=== PATIENT | male | born 1955 | race Caucasian/White ===

== ENCOUNTER 2017-09-26 11:36 | Observation (INO) | payer OTHER, SELFPAY ==
[2017-09-26] VITALS (10 sets, daily range): BP systolic 134–158; BP diastolic 80–86; PULSE 58–71; RESP 16–18; TEMP 36.6–37.1; O2SAT 96–98; BMI 26.7; BMI 27.8
--- NOTE | 2017-09-26 12:00 | EKG12_ITS ---
Test Reason : CP Blood Pressure : / mmHG Vent. Rate : 068 BPM Atrial Rate : 068 BPM P-R Int : 198 ms QRS Dur : 088 ms QT Int : 372 ms P-R-T Axes : 023 -38 036 degrees QTc Int : 395 ms Normal sinus rhythm Left axis deviation Inferior infarct , age undetermined Anterior infarct , age undetermined Abnormal ECG Confirmed by ALEJANDRA MARCELINO, [place] ([id number]), editor managing newspaper VINCENT KAPLAN ([id number]) on 09/29/2017 2:08:15 PM Referred By: Confirmed By:[place] ROBERTS MD
--- NOTE | 2017-09-26 12:00 | RAD_ITS ---
STUDY: X-RAY CHEST REASON FOR EXAM: Male, 61 years old. Chest discomfort for several days TECHNIQUE: Single view of the chest was obtained COMPARISON: None. FINDINGS: Mild prominence of the cardiac silhouette. Mild perihilar congestive changes. Small calcified granuloma in the right lower lobe suspected. Osseous structures demonstrate no acute abnormalities. No lung consolidation or pneumothorax. RAD/Chest 1 View (Portable) IMPRESSION: No evidence for focal airspace disease. Electronically Signed: Bradley Andrews, at 12:52 EST Tel , Service support ,
--- NOTE | 2017-09-26 12:02 | ED.VISSUMM ---
- ER Visit Summary Date of Service: 09/26/17 Chief Complaint: [Chest pain] History of Present Illness: The patient is a 61 M [who presents the emergency department with chest pain. It started at 1030 this morning. It was a pressure aching in the center of his chest. It radiated to his left neck. He was out working on the deck when it started. It similar to when he had a heart attack 2 years ago and had a stent placed at that time. He had some mild nausea. No shortness of breath. He took his blood pressure and was 162/102. He has a history of high blood pressure and history of smoking however he quit 2 years ago. He rates the pain as a 2 out of 10 currently. He did take 5 baby aspirin at home and 2 nitro prior to coming into the emergency department] Physical Examination: [] 158/86 WN WD NAD PERRL EOMI MMM NECK supple and nontender, no masses RRR no murmur rub or gallop, no peripheral edema, symmetric radial pulses CTAB no respiratory distress ABDOMEN is soft and nontender, normal bowel sounds, no distension, no rebound or guarding SKIN is warm and dry no rashes Alert and Oriented x3, CN II-XII in tact, no motor or sensory deficits, gait normal No lymphadenopathy Test Results: [] Emergency Department Course and Treatment: [Up in the emergency department was unremarkable. Given the patient's history and description of the pain I do think he requires admission.] Treatment Plan: [] Disposition: [Admit] Impression: [chest Pain] This note was generated with [employer] dictation software. It may contain incorrect words, spelling, and punctuation that were not noted in review of the chart prior to signing ED Disposition - Plan for ED Patient: Disposition: Acute Care Hospital [facility] Chief Complaint: Chest Pain
--- NOTE | 2017-09-26 12:07 | ED.DCSUM_ITS ---
- ER Visit Summary Date of Service: 09/26/17 Chief Complaint: [Chest pain] History of Present Illness: The patient is a 61 M [who presents the emergency department with chest pain. It started at 1030 this morning. It was a pressure aching in the center of his chest. It radiated to his left neck. He was out working on the deck when it started. It similar to when he had a heart attack 2 years ago and had a stent placed at that time. He had some mild nausea. No shortness of breath. He took his blood pressure and was 162/102. He has a history of high blood pressure and history of smoking however he quit 2 years ago. He rates the pain as a 2 out of 10 currently. He did take 5 baby aspirin at home and 2 nitro prior to coming into the emergency department] Physical Examination: [] 158/86 WN WD NAD PERRL EOMI MMM NECK supple and nontender, no masses RRR no murmur rub or gallop, no peripheral edema, symmetric radial pulses CTAB no respiratory distress ABDOMEN is soft and nontender, normal bowel sounds, no distension, no rebound or guarding SKIN is warm and dry no rashes Alert and Oriented x3, CN II-XII in tact, no motor or sensory deficits, gait normal No lymphadenopathy Test Results: [] Emergency Department Course and Treatment: [Up in the emergency department was unremarkable. Given the patient's history and description of the pain I do think he requires admission.] Treatment Plan: [] Disposition: [Admit] Impression: [chest Pain] This note was generated with [employer] dictation software. It may contain incorrect words, spelling, and punctuation that were not noted in review of the chart prior to signing ED Disposition - Plan for ED Patient: Disposition: Acute Care Hospital [facility] Chief Complaint: Chest Pain
[2017-09-26 12:15] LABS: Absolute Lymphocyte Count 1.58 X10^3/ul (0.83-4.51); Absolute Neutrophil Count 5.1 X10^3/uL (2.0-7.7); Basophil# 0.02 X10^3/uL; Basophil% 0.3 % (0-1); Eosinophil# 0.16 X10^3/uL; Eosinophils% 2.2 % (0-5); Lymphocyte # 1.58 X10^3/ul (4.0); Lymphocyte % 21.4 % (19-41); Mean Corp Hgb Conc 34.1 g/gl (32-36); Mean Corpuscular Hgb 29.7 pg (27.0-32.0); Monocyte# 0.51 X10^3/uL; Monocyte% 6.9 % (0-10); Neutrophil # 5.13 X10^3/uL (2.7-7.7); Neutrophil % 69.2 % (47-70); Platelet Count 165 K/mm3 (150-450); RBC Distribution Width CV 12.8 % (11.6-14.6); RBC Distribution Width SD 41.3 fl (35.1-43.9); Red Blood Count 4.71 M/mm3 (4.6-6.2); White Blood Count 7.4 K/mm3 (4.4-11.0)
[2017-09-26 12:17] LABS: POSITIVE COUNT NO; POSITIVE DIFFERENTIAL NO; POSITIVE MORPHOLOGY NO
[2017-09-26 12:21] LABS: International Normalized Ratio 1.1; Prothrombin Time (Protime)PT. 13.8 SECONDS (11.7-14.9)
[2017-09-26] MEDS: Nitroglycerin Oint 1 INCH PACKET TRANSDERM. (12:22)
[2017-09-26 12:29] LABS: Anion Gap 6 (5-15); BUN 20 mg/dL (7-18); BUN/Creat Ratio 16.4 RATIO (10-20); Calcium,Total 8.8 mg/dL (8.5-10.1); Chloride 108 mmol/L (98-107); Creatinine, Serum 1.22 mg/dL (0.70-1.30); EST Glomerular Filtration Rate 64 mL/min (>60); Est Glom Filt Rate - Afr Amer 77 mL/min (>60); Estimated Creatinine Clearance 68.02 ml/min; Glucose 108 mg/dL (74-106); Potassium 4.2 mmol/L (3.5-5.1); Sodium Level 142 mmol/L (136-145)
--- NOTE | 2017-09-26 14:00 | PCM.HP.STD ---
Problem List (1) Atypical chest pain Status: Acute (2) hypertension Status: Acute (3) GERD (gastroesophageal reflux disease) Status: Chronic (4) CAD (coronary artery disease) Status: Chronic Comment: status post stent History of Present Illness Date of Admission: 09/26/17 Chief Complaint: Left-sided chest pain today The patient is a 61 year old M history of coronary artery disease status post stent most probably LAD in [facility] in December 2015 with repeat echo in December 2016 as a preop for lumbar spine surgery, had L3-L4 lumbar vertebral fusion surgery came to ER with sudden onset of left-sided atypical chest pain, lasted for about an hour and 15-20 minutes associated with mild shortness of breath. Patient was just doing mild yardwork on his deck but no severe exertion. It got relieved after he took 5 baby aspirin and 2 nitro and morphine IV in the ER. History of smoking, about 45 pack years of smoking which he quit at the time of first CO in December 2015. The patient is chest pain-free. EKG done in the ER shows normal sinus rhythm at 68 bpm with LAD. No significant EKG changes since previous EKG of January 25, 2016. First troponin is negative. [] Past Medical History Past Medical History (Chronic Problems): Chronic Problems GERD (gastroesophageal reflux disease) (Chronic) CAD (coronary artery disease) (Chronic) status post stent Allergies No Known Allergies Allergy (Verified 12/25/15 22:49) Home Medications: Ambulatory Orders Medication Instructions Recorded Aspirin [Adult Low Dose Aspirin EC] 81 mg PO DAILY 01/24/16 Atorvastatin Calcium [Lipitor] 80 mg PO QHS 01/24/16 Carvedilol [Coreg (Beta Sonja)] 3.125 mg PO BID 01/24/16 Lisinopril [Zestril] 5 mg PO QHS 01/24/16 Nitroglycerin [Nitrostat] 0.4 mg SUBLINGUAL Q5M PRN 01/24/16 Pantoprazole Sodium [Protonix] 40 mg PO DAILY #30 tablet 01/25/16 Co Q-10 QHS 09/26/17 Cyanocobalamin [Vitamin B12] 500 mcg PO DAILY@0800 09/26/17 Krill Oil 500 mg PO DAILY 09/26/17 Surgical History: appendectomy, tonsillectomy, - Smoking Status: Former smoker - *Family History Maternal History Items: Hypertension Paternal History Items: Heart Disease, - - father with cabg, stent pacemaker, brother with heart disease. Review of Systems Constitutional: Denies: Chills, Fever, Weight Change HEENT: Denies: Head Aches, Sinus Congestion, Sinus Drainage Cardiovascular: Reports: Chest Pain. Denies: Palpitations Respiratory: Denies: Cough, Shortness of breath at rest, Sputum production Gastrointestinal: Denies: Abdominal Pain, Nausea, Vomiting Genitourinary: Denies: Dysuria Musculoskeletal: Denies: Joint Pain, Joint Tenderness Skin: Denies: Rash, Wounds Neurological: Reports: - - L3-L4 lumbar spinal fusion surgical scar. Denies: Focal weakness, Numbness, Tingling Psychiatric: Denies: Anxiety, Depression, Homicidal Ideations, Suicidal Ideations Hematologic/ Lymphatic: Denies: Easy Bruising, Easy Bleeding VTE Information - Inpt Only VTE Present on Admission: No VTE Mechan Device Prophylaxis: SCD's VTE Pharm Prophylaxis ordered?: Yes Patient Problems: Active and Suspected Problems Atypical chest pain (Acute) hypertension (Acute) - Physical Exam General: Alert, Oriented x3, Cooperative HEENT: Atraumatic, PERRLA, EOMI, Normocephalic Neck: Supple, No JVD, Negative Carotid Bruits Lungs: Clear to auscultation, Normal air movement, No rhonchi, No wheeze Cardiovascular: Regular rate, Regular Rhythm, Normal S1, Normal S2, No murmurs Abdomen: Bowel Sounds Present, Soft, Non Tender Extremities: No edema, Capillary Refill Less than 3 Seconds Skin: No rashes, No breakdown Musculoskeletal: No Tenderness to Palpation of Joints or Extremities, - - Had lumbar spinal surgery about 5 6 cm of long surgical scar and had screws and emanuel for L3-L4 lumbar spinal fusion surgery Neurological: Cranial nerves II-XII grossly intact Psych/Mental Status: Normal Affect, Appropriate Vital Signs Temp Pulse Resp BP Pulse Ox 98.3 F 65 16 136/80 H 98 09/26/17 11:37 09/26/17 13:49 09/26/17 13:49 09/26/17 13:49 09/26/17 13:49 Oxygen Delivery Method Room Air Weight: 197 lb Body Mass Index (BMI) 26.7 Laboratory Tests Past 24 Hrs 09/26/17 09/26/17 09/26/17 11:44 11:44 11:44 WBC 7.4 RBC 4.71 Hgb 14.0 Hct 41.0 MCV 87.0 MCH 29.7 MCHC 34.1 RDW 12.8 RDW Differential 41.3 Plt Count 165 MPV 11.0 Immature Gran % (Auto) 0.000 Neut % (Auto) 69.2 Lymph % (Auto) 21.4 Taney % (Auto) 6.9 Eos % (Auto) 2.2 Baso % (Auto) 0.3 Absolute Neuts (auto) 5.1 Absolute Lymphs (auto) 1.58 Total Counted Not Reportable PT 13.8 INR 1.1 Sodium 142 Potassium 4.2 Chloride 108 H Carbon Dioxide 28.0 Anion Gap 6 BUN 20 H Creatinine 1.22 Estim Creat Clear Calc 68.02 Est GFR (MDRD) Af Amer 77 Est GFR (MDRD) Non-Af 64 BUN/Creatinine Ratio 16.4 Glucose 108 H Calcium 8.8 Troponin I < 0.02 Assessment/Plan Active and Suspected Problems Atypical chest pain (Acute) hypertension (Acute) The patient is a 61 year old M history of coronary artery disease status post stent most probably LAD in [facility] in December 2015 with repeat echo in December 2016 as a preop for lumbar spine surgery, had L3-L4 lumbar vertebral fusion surgery came to ER with sudden onset of left-sided atypical chest pain, lasted for about an hour and 15-20 minutes associated with mild shortness of breath. Patient was just doing mild yardwork on his deck but no severe exertion. It got relieved after he took 5 baby aspirin and 2 nitro and morphine IV in the ER. History of smoking, about 45 pack years of smoking which he quit at the time of first CO in December 2015. The patient is chest pain-free. EKG done in the ER shows normal sinus rhythm at 68 bpm with LAD. No significant EKG changes since previous EKG of January 25, 2016. First troponin is negative. 1. Atypical chest pain possible unstable angina: Patient is being admitted on the PCU as an observation. On ACS protocol with serial cardiac enzymes and if negative exercise nuclear stress test tomorrow morning. Patient is on aspirin, lisinopril, Coreg and atorvastatin at home. 2. Coronary artery disease status post stent, possible LAD PCI in [facility]: 3. Hypertension: Blood pressure was high and patient came in ER 158/66. Lisinopril increased to 10 mg daily. Other comorbidities include GERD on Protonix, history of lumbar spinal surgery but at present no back pain: Stable. Home medication reconciliation done. DVT prophylaxis: On Lovenox 40 units subcu daily and bilateral SCDs. Code Visit OBSV E&M: 57468 Initial observation care L3
[2017-09-26] MEDS: 0.9% Normal Saline 1,000 ML 50 ML IV (15:36)
[2017-09-26] MEDS: Enoxaparin 40 MG/0.4 ML Syringe SC (15:36)
[2017-09-26] MEDS: Lisinopril 10 MG Tablet PO (15:36)
[2017-09-26] MEDS: Acetaminophen 325 MG Tablet 650 MG PO (18:15)
[2017-09-26] MEDS: Carvedilol 3.125 MG TABLET PO (21:46)
[2017-09-26] MEDS: Atorvastatin Calcium 80 MG Tablet PO (21:46)
[2017-09-27 02:59] LABS: Hematocrit 40.9 % (40-54); Hemoglobin 14.1 g/dl (13.0-16.5); Mean Corp Hgb Conc 34.5 g/gl (32-36); Mean Corpuscular Hgb 30.1 pg (27.0-32.0); Mean Corpuscular Volume 87.4 fL (80-94); Mean Platelet Vol. 11.4 fl (6.2-12.0); Platelet Count 155 K/mm3 (150-450); RBC Distribution Width SD 41.5 fl (35.1-43.9); Red Blood Count 4.68 M/mm3 (4.6-6.2); White Blood Count 6.2 K/mm3 (4.4-11.0)
[2017-09-27 03:12] LABS: Scan Indicated on CBC? Y/N NO
[2017-09-27 03:20] VITALS: BP 138/84; PULSE 61; RESP 16; TEMP 36.8; O2SAT 94
[2017-09-27 03:20] LABS: International Normalized Ratio 1.1; Partial Thromboplast Time 29.1 Seconds (24.1-36.2)
[2017-09-27 03:43] LABS: Anion Gap 8 (5-15); BUN 17 mg/dL (7-18); BUN/Creat Ratio 17.2 RATIO (10-20); Calcium,Total 8.8 mg/dL (8.5-10.1); Chloride 108 mmol/L (98-107); Cholesterol 137 mg/dL (200); Creatinine, Serum 0.99 mg/dL (0.70-1.30); EST Glomerular Filtration Rate 81 mL/min (>60); Est Glom Filt Rate - Afr Amer 98 mL/min (>60); Estimated Creatinine Clearance 83.83 ml/min; Glucose 101 mg/dL (74-106); High Density Lipoprotein 39 mg/dL; Potassium 3.8 mmol/L (3.5-5.1); Sodium Level 142 mmol/L (136-145); Thyroid Stim Hormone (TSH) 1.51 uIU/mL (0.358-3.74); Triglycerides 284 mg/dL; Very Low Density Lipoprotein 57 mg/dL (5-40)
[2017-09-27 05:00] VITALS: PULSE 59
--- NOTE | 2017-09-27 05:55 | EKG12_ITS ---
Test Reason : AM EKG Blood Pressure : / mmHG Vent. Rate : 067 BPM Atrial Rate : 067 BPM P-R Int : 212 ms QRS Dur : 090 ms QT Int : 386 ms P-R-T Axes : 049 -32 012 degrees QTc Int : 407 ms Sinus rhythm with 1st degree A-V block Left axis deviation Inferior infarct , age undetermined Anteroseptal infarct , age undetermined Abnormal ECG When compared with ECG of 26-SEP-2017 11:39, MANUAL COMPARISON REQUIRED, DATA IS UNCONFIRMED Confirmed by GLADIS SOTO ([id number]), telegraph editor VINCENT KAPLAN ([id number]) on 09/30/2017 3:11:05 PM Referred By: DR NESS Confirmed By:GLADIS SOTO
[2017-09-27] MEDS: Aspirin E.C. 81 MG Tablet PO (06:03)
[2017-09-27] MEDS: Lisinopril 10 MG Tablet PO (06:03)
[2017-09-27 06:55] VITALS: PULSE 54
--- NOTE | 2017-09-27 08:25 | STRESSREP ---
Stress Test Report Date: 09/27/2017 Procedure: Exercise tolerance test/stress nuclear imaging study Indications: Chest pain; CAD; S/P PR; S/P PCI Consent: Per the patient Procedure: The patient exercised on a Mo protocol for 11 minutes completing stage III and 2 minutes of stage IV achieving a peak heart rate of 141 bpm (89% predicted maximal heart rate) with a peak blood pressure 158/86 mmHg and a peak MET capacity of approximately 13 MET's. The baseline ECG demonstrated normal sinus rhythm with anterior PR of indeterminate age cannot be excluded. The peak exercise ECG demonstrated no obvious ECG changes. There were no cardiac dysrhythmias pretest, during exercise, or recovery. The functional capacity was considered good. The patient had no chest discomfort during exercise or recovery. The examination was discontinued secondary to dyspnea. Impression: 1. Technically adequate and (percent predicted maximal heart rate greater than 85%) exercise tolerance test 2. Peak exercise ECG with no obvious ECG changes 3. Nuclear images pending Myocardial perfusion imaging study: Technique: The patient was injected with millicuries of technetium 99m Cardiolite and subsequently rest SPECT Cardiolite nuclear imaging was obtained in the horizontal long, vertical long, and short axis views. The patient exercised on a Mo protocol for 11 minutes completing stage III and 2 minutes of stage IV achieving a peak heart rate of 141 bpm (89% predicted maximal heart rate) with a peak blood pressure 158/86 mmHg and a peak MET capacity of approximately 13 MET's. The patient was injected with millicuries of technetium 99m Cardiolite and subsequently stress SPECT Cardiolite nuclear imaging was obtained in the horizontal long, vertical long, and short axis views. A gated Cardiolite study at peak stress was obtained. Interpretation: Rest and stress SPECT Cardiolite nuclear imaging status post realignment, normalization, and attenuation correction, demonstrates the appearance of diminished perfusion/tracer uptake in portions of the distal anterior, distal anteroseptal, and apical segments without significant change between rest and stress. There are similar type findings on the resting and stress polar map images. There is diminished end systolic thickening and brightening in the aforementioned areas. The gated Cardiolite study demonstrates diminished myocardial thickening and inward wall motion in the aforementioned areas. The reported LVEF is 56%. Impression: 1. Rest and stress SPECT Cardiolite nuclear imaging demonstrate myocardial perfusion changes appearing compatible with an area of previous myocardial injury/infarction involving portions of the distal anterior, distal anteroseptal, and apical segments with no myocardial perfusion changes consider diagnostic for associated stress-induced myocardial ischemia. 2. The gated Cardiolite study reports an LVEF of 56%. This note was generated with [employer] Dictation software. Every effort was made to ensure accuracy, however, computerized grinder dresser mistakes may persist.
--- NOTE | 2017-09-27 08:31 | STRESSREP_ITS ---
Stress Test Report Date: 09/27/2017 Procedure: Exercise tolerance test/stress nuclear imaging study Indications: Chest pain; CAD; S/P WA; S/P PCI Consent: Per the patient Procedure: The patient exercised on a Mo protocol for 11 minutes completing stage III and 2 minutes of stage IV achieving a peak heart rate of 141 bpm (89% predicted maximal heart rate) with a peak blood pressure 158/86 mmHg and a peak MET capacity of approximately 13 MET's. The baseline ECG demonstrated normal sinus rhythm with anterior WA of indeterminate age cannot be excluded. The peak exercise ECG demonstrated no obvious ECG changes. There were no cardiac dysrhythmias pretest, during exercise, or recovery. The functional capacity was considered good. The patient had no chest discomfort during exercise or recovery. The examination was discontinued secondary to dyspnea. Impression: 1. Technically adequate and (percent predicted maximal heart rate greater than 85%) exercise tolerance test 2. Peak exercise ECG with no obvious ECG changes 3. Nuclear images pending Myocardial perfusion imaging study: Technique: The patient was injected with millicuries of technetium 99m Cardiolite and subsequently rest SPECT Cardiolite nuclear imaging was obtained in the horizontal long, vertical long, and short axis views. The patient exercised on a Mo protocol for 11 minutes completing stage III and 2 minutes of stage IV achieving a peak heart rate of 141 bpm (89% predicted maximal heart rate) with a peak blood pressure 158/86 mmHg and a peak MET capacity of approximately 13 MET's. The patient was injected with millicuries of technetium 99m Cardiolite and subsequently stress SPECT Cardiolite nuclear imaging was obtained in the horizontal long, vertical long, and short axis views. A gated Cardiolite study at peak stress was obtained. Interpretation: Rest and stress SPECT Cardiolite nuclear imaging status post realignment, normalization, and attenuation correction, demonstrates the appearance of diminished perfusion/tracer uptake in portions of the distal anterior, distal anteroseptal, and apical segments without significant change between rest and stress. There are similar type findings on the resting and stress polar map images. There is diminished end systolic thickening and brightening in the aforementioned areas. The gated Cardiolite study demonstrates diminished myocardial thickening and inward wall motion in the aforementioned areas. The reported LVEF is 56%. Impression: 1. Rest and stress SPECT Cardiolite nuclear imaging demonstrate myocardial perfusion changes appearing compatible with an area of previous myocardial injury/infarction involving portions of the distal anterior, distal anteroseptal , and apical segments with no myocardial perfusion changes consider diagnostic for associated stress-induced myocardial ischemia. 2. The gated Cardiolite study reports an LVEF of 56%. This note was generated with [employer] Dictation software. Every effort was made to ensure accuracy, however, computerized cigarette lighter repairer mistakes may persist.
[2017-09-27 08:55] VITALS: BP 155/88; PULSE 58; RESP 16; TEMP 36.6; O2SAT 94
[2017-09-27] MEDS: Pantoprazole Sodium 40 MG Tablet PO (08:59)
[2017-09-27] MEDS: Cyanocobalamin 500 MCG Tablet PO (08:59)
[2017-09-27] MEDS: Carvedilol 3.125 MG TABLET PO (08:59)
--- NOTE | 2017-09-27 10:03 | PCM.DC ---
- Discharge Diagnoses Current Active Problems: Current Active and Chronic Problems Atypical chest pain (Acute) hypertension (Acute) You will use the following diet at home:: Cardiac Your food should be the consistency of: Regular Discharge Activity: Return to Normal Activity Weight Bearing Status: Full weight bearing Call your doctor if you observe: Fever of 101 or Higher, Shortness of breath, Dizziness, Fainting spells, Chest pain, Increased palpitations (irregular heartbeat), Uncontrolled pain Allergies/Adverse Reactions: Allergies No Known Allergies Allergy (Verified 12/25/15 22:49) Medications to take at Discharge Aspirin [Adult Low Dose Aspirin EC] 81 mg PO DAILY 01/24/16 Atorvastatin Calcium [Lipitor] 80 mg PO QHS 01/24/16 Carvedilol [Coreg (Beta Sonja)] 3.125 mg PO BID 01/24/16 Nitroglycerin [Nitrostat] 0.4 mg SUBLINGUAL Q5M PRN 01/24/16 Pantoprazole Sodium [Protonix] 40 mg PO DAILY #30 tablet 01/25/16 Co Q-10 QHS 09/26/17 Cyanocobalamin [Vitamin B12] 500 mcg PO DAILY@0800 09/26/17 Krill Oil 500 mg PO DAILY 09/26/17 Lisinopril [Zestril] 10 mg PO DAILY #30 tab 09/27/17 The following prescriptions were given: Lisinopril [Zestril] 10 mg PO DAILY #30 tab Primary Care Physician: Roney De La Garza [Primary Care Provider] - Please follow up with your Primary Care Physician in: 1 week for BP check
[2017-09-27 11:13] VITALS: O2SAT 96
--- NOTE | 2017-09-27 12:14 | PCM.DC.SUM ---
Discharge Date and Diagnosis Date of Admission: 09/26/17 Date of Discharge: 09/27/17 - Primary Discharge Diagnosis Chest pain, attributed to GERD, negative cardiac workup including stress test. - Secondary Discharge Diagnosis Chronic Problems GERD (gastroesophageal reflux disease) (Chronic) CAD (coronary artery disease) (Chronic) status post stent Hospital Course and Treatment Imaging Results: 09/27/17 05:55 Nuclear Stress Test - Treadmil [NM] Routine Clinical Impression(s) from Imaging Studies Chest X-Ray 09/26/17 12:00 IMPRESSION: No evidence for focal airspace disease. Electronically Signed: Bradley Andrews, at 12:52 EST Tel , Service support , Operations: None Procedures: EKG, Stress test Summary of Care Provided: Patient seen and examined on the day of discharge and appears to be stable to be discharged home. He denies any more chest pain. No other symptoms. Vital signs are stable. - Physical Exam General: Alert, Oriented x3, Cooperative, No apparent distress. HEENT: Atraumatic, PERRLA, EOMI. Neck: Supple, No JVD, Negative Carotid Bruits, Trachea Midline, Thyroid Normal. Lungs: Clear to auscultation, Normal air movement, No rhonchi, No wheeze, No rales. Cardiovascular: Regular rate, Regular Rhythm, Normal S1, Normal S2, PMI Normal. Abdomen: Bowel Sounds Present, Soft, Non Tender, Non-Distended, No Hepato-splenomegaly. Extremities: No clubbing, No cyanosis, No edema Skin: No rashes, No breakdown Neurological: Neuro grossly intact Vital Signs are stable. Hospital course: The patient is a 61 year old M admitted for chest pain for evaluation in context of history of CAD status post stents, hypertension and hyperlipidemia. His EKG revealed normal sinus rhythm without acute ischemic changes. Troponin was negative ?4. Chest x-ray showed no acute findings. His description of symptoms seem to be due to GERD. His routine blood work was unremarkable. His blood pressure was on the higher side and his dose of lisinopril increased from 5 mg p.o. daily to 10 mg p.o. daily. He underwent nuclear stress test that revealed no evidence of new stress-induced myocardial ischemia with preserved ejection fraction. Acute coronary syndrome ruled out. His symptoms again attributed to possible GERD. Patient was already on PPI. Patient discharged home in a stable medical condition, discharged on his chronic home medications without any changes except dose of lisinopril which increased from 5 mg daily to 10 mg p.o. daily, recommended follow-up with PCP in 1 week for blood pressure check. Discharge Activity: Return to Normal Activity Weight Bearing Status: Full weight bearing Call your doctor if you observe: Fever of 101 or Higher, Shortness of breath, Dizziness, Fainting spells, Chest pain, Increased palpitations (irregular heartbeat), Uncontrolled pain Home Medications: Medications to take at Discharge Aspirin [Adult Low Dose Aspirin EC] 81 mg PO DAILY 01/24/16 Atorvastatin Calcium [Lipitor] 80 mg PO QHS 01/24/16 Carvedilol [Coreg (Beta Sonja)] 3.125 mg PO BID 01/24/16 Nitroglycerin [Nitrostat] 0.4 mg SUBLINGUAL Q5M PRN 01/24/16 Pantoprazole Sodium [Protonix] 40 mg PO DAILY #30 tablet 01/25/16 Co Q-10 QHS 09/26/17 Cyanocobalamin [Vitamin B12] 500 mcg PO DAILY@0800 09/26/17 Krill Oil 500 mg PO DAILY 09/26/17 Lisinopril [Zestril] 10 mg PO DAILY #30 tab 09/27/17 Following Prescrptions Were Given to Patient: Lisinopril [Zestril] 10 mg PO DAILY #30 tab Primary Care Physician: Roney De La Garza [Primary Care Provider] - Please follow up with your Primary Care Physician in: 1 week for BP check Please Follow Up With: Roney De La Garza When: 1 week for bp check Disposition: Home Minutes spent on discharge:: 25 Patient Condition:: Stable Meaningful Use Info Meaningful Use Diagnoses (Choose all that apply): None applicable Code Visit OBSV E&M: 29299 Observation care discharge
--- NOTE | 2017-09-27 12:19 | DS.PCM_ITS ---
Discharge Date and Diagnosis Date of Admission: 09/26/17 Date of Discharge: 09/27/17 - Primary Discharge Diagnosis Chest pain, attributed to GERD, negative cardiac workup including stress test. - Secondary Discharge Diagnosis Chronic Problems GERD (gastroesophageal reflux disease) (Chronic) CAD (coronary artery disease) (Chronic) status post stent Hospital Course and Treatment Imaging Results: 09/27/17 05:55 Nuclear Stress Test - Treadmil [NM] Routine Clinical Impression(s) from Imaging Studies Chest X-Ray 09/26/17 12:00 IMPRESSION: No evidence for focal airspace disease. Electronically Signed: Bradley Andrews, at 12:52 EST Tel , Service support , Operations: None Procedures: EKG, Stress test Summary of Care Provided: Patient seen and examined on the day of discharge and appears to be stable to be discharged home. He denies any more chest pain. No other symptoms. Vital signs are stable. - Physical Exam General: Alert, Oriented x3, Cooperative, No apparent distress. HEENT: Atraumatic, PERRLA, EOMI. Neck: Supple, No JVD, Negative Carotid Bruits, Trachea Midline, Thyroid Normal. Lungs: Clear to auscultation, Normal air movement, No rhonchi, No wheeze, No rales. Cardiovascular: Regular rate, Regular Rhythm, Normal S1, Normal S2, PMI Normal. Abdomen: Bowel Sounds Present, Soft, Non Tender, Non-Distended, No Hepato- splenomegaly. Extremities: No clubbing, No cyanosis, No edema Skin: No rashes, No breakdown Neurological: Neuro grossly intact Vital Signs are stable. Hospital course: The patient is a 61 year old M admitted for chest pain for evaluation in context of history of CAD status post stents, hypertension and hyperlipidemia. His EKG revealed normal sinus rhythm without acute ischemic changes. Troponin was negative ?4. Chest x-ray showed no acute findings. His description of symptoms seem to be due to GERD. His routine blood work was unremarkable. His blood pressure was on the higher side and his dose of lisinopril increased from 5 mg p.o. daily to 10 mg p.o. daily. He underwent nuclear stress test that revealed no evidence of new stress-induced myocardial ischemia with preserved ejection fraction. Acute coronary syndrome ruled out. His symptoms again attributed to possible GERD. Patient was already on PPI. Patient discharged home in a stable medical condition, discharged on his chronic home medications without any changes except dose of lisinopril which increased from 5 mg daily to 10 mg p.o. daily, recommended follow-up with PCP in 1 week for blood pressure check. Discharge Activity: Return to Normal Activity Weight Bearing Status: Full weight bearing Call your doctor if you observe: Fever of 101 or Higher, Shortness of breath, Dizziness, Fainting spells, Chest pain, Increased palpitations (irregular heartbeat), Uncontrolled pain Home Medications: Medications to take at Discharge Aspirin [Adult Low Dose Aspirin EC] 81 mg PO DAILY 01/24/16 Atorvastatin Calcium [Lipitor] 80 mg PO QHS 01/24/16 Carvedilol [Coreg (Beta Sonja)] 3.125 mg PO BID 01/24/16 Nitroglycerin [Nitrostat] 0.4 mg SUBLINGUAL Q5M PRN 01/24/16 Pantoprazole Sodium [Protonix] 40 mg PO DAILY #30 tablet 01/25/16 Co Q-10 QHS 09/26/17 Cyanocobalamin [Vitamin B12] 500 mcg PO DAILY@0800 09/26/17 Krill Oil 500 mg PO DAILY 09/26/17 Lisinopril [Zestril] 10 mg PO DAILY #30 tab 09/27/17 Following Prescrptions Were Given to Patient: Lisinopril [Zestril] 10 mg PO DAILY #30 tab Primary Care Physician: Roney De La Garza [Primary Care Provider] - Please follow up with your Primary Care Physician in: 1 week for BP check Please Follow Up With: Roney De La Garza When: 1 week for bp check Disposition: Home Minutes spent on discharge:: 25 Patient Condition:: Stable Meaningful Use Info Meaningful Use Diagnoses (Choose all that apply): None applicable Code Visit OBSV E&M: 04166 Observation care discharge
== END 2017-09-27 10:04 | disposition home or self-care (01) ==
LOC: ED 13:43 → PCU 14:01
PROVIDERS: Admitting Provider Internal Medicine; Emergency Provider Emergency Medicine; Family Provider Family Medicine; PCP Family Medicine; Visit Provider Hospitalist
DX: R07.89 Other chest pain (principal); I10 Essential (primary) hypertension; I25.10 Atherosclerotic heart disease of native coronary artery without angina pectoris; K21.9 Gastro-esophageal reflux disease without esophagitis; I25.2 Old myocardial infarction; R06.02 Shortness of breath; Z95.5 Presence of coronary angioplasty implant and graft; Z98.1 Arthrodesis status; Z87.891 Personal history of nicotine dependence; Z79.899 Other long term (current) drug therapy; Z79.82 Long term (current) use of aspirin
CPT/HCPCS: 36415; 71045; 78452; 80048; 80061; 83735; 83880; 84443; 84484; 85025; 85027; 85610; 85730; 93005; 93017; 96374; 99218; 99285; A9500; J7030; A4216; G0378

== ENCOUNTER → 2018-02-17 07:23 | Outpatient (CLI) | payer OTHER, SELFPAY ==
[2018-02-17 08:35] LABS: AST(SGOT) 25 U/L (15-37); Alanine Aminotransfer ALT/SGPT 41 U/L (16-61); Albumin, Serum 4.1 g/dL (3.2-5.0); Alkaline Phosphatase 64 U/L (45-117); Bilirubin, Direct 0.17 mg/dL (0.00-0.30); Cholesterol 194 mg/dL (200); Globulin 3.5 g/dL (2.2-4.2); High Density Lipoprotein 48 mg/dL; Protein, Total 7.6 g/dL (6.4-8.2); Triglycerides 111 mg/dL; Very Low Density Lipoprotein 22 mg/dL (5-40)
== END ==
PROVIDERS: Family Provider Family Medicine; PCP Family Medicine; Visit Provider Internal Medicine Cardiovascular Disease
DX: E78.5 Hyperlipidemia, unspecified (principal); Z79.899 Other long term (current) drug therapy
CPT/HCPCS: 36415; 80061; 80076

== ENCOUNTER → 2018-08-16 10:12 | Outpatient (CLI) | payer OTHER, SELFPAY ==
[2018-08-16 08:53] VITALS: BMI 28.7
[2018-08-16 12:50] LABS: AST(SGOT) 32 U/L (15-37); Alanine Aminotransfer ALT/SGPT 55 U/L (16-61); Albumin, Serum 4.1 g/dL (3.2-5.0); Alkaline Phosphatase 59 U/L (45-117); Bilirubin, Direct 0.24 mg/dL (0.00-0.30); Cholesterol 215 mg/dL (200); Globulin 3.3 g/dL (2.2-4.2); High Density Lipoprotein 52 mg/dL; Protein, Total 7.4 g/dL (6.4-8.2); Triglycerides 77 mg/dL; Very Low Density Lipoprotein 15 mg/dL (5-40)
== END ==
PROVIDERS: Family Provider Family Medicine; PCP Family Medicine; Visit Provider Internal Medicine Cardiovascular Disease
DX: E78.5 Hyperlipidemia, unspecified (principal)
CPT/HCPCS: 36415; 80061; 80076

== ENCOUNTER → 2018-08-23 12:41 | Outpatient (CLI) | payer OTHER, SELFPAY ==
[2018-08-16 08:53] VITALS: BMI 28.7
--- NOTE | 2018-08-23 12:45 | ECHOD_ITS ---
Reason For Study: Dyspnea/SOB Procedure This was a 2D Doppler, Color Flow transthoracic echocardiogram. Exam performed in department. Left Ventricle Normal LV size. Mild segmental systolic dysfunction (see wall motion). The estimated ejection fraction is 45 %. Diastolic function is indeterminate. Mid-Anterior : Hypokinetic. Mid-Lateral : Hypokinetic. Mid-inferoseptal : Hypokinetic. Mid-anteroseptal : Akinetic. [place] : Akinetic. Right Ventricle Normal RV size. Normal systolic function. Atria Normal left atrium. Normal right atrium. No doppler evidence for ASD. Mitral Valve There is no mitral annular calcification. Normal mitral valve. Mild (1+) mitral valve insufficiency. Tricuspid Valve Normal tricuspid valve. Trivial tricuspid valve insufficiency. Right ventricular systolic pressure estimated to be 20 mmHg. Aortic Valve Trisinus/trileaflet aortic valve. Mild diffuse aortic valve thickening. Mild focal aortic valve calcification. Aortic sclerosis, no stenosis. Pulmonic Valve The pulmonic valve is not well visualized. Great Vessels Normal sized aortic root. Pericardium/Pleural No pericardial effusion. MMode/2D Measurements & Calculations LVIDd: 5.1 cm IVSd: 1.1 cm Ao root diam: 3.7 cm LVIDs: 3.3 cm LVPWd: 1.0 cm LA dimension: 4.0 cm RVDd: 3.4 cm FS: 35.0 % LAV(MOD-sp4): 47.6 ml LVAd ap4: 42.2 cm2 SV(MOD-sp4): 75.4 ml EDV(MOD-sp4): 153.7 ml EDV(sp4-el): 159.3 ml LVAs ap4: 28.1 cm2 ESV(MOD-sp4): 78.3 ml ESV(sp4-el): 82.9 ml EF(MOD-sp4): 49.1 % EF(sp4-el): 47.9 % SV(sp4-el): 76.4 ml LA A4 area: 17.7 cm2 RA A4 area: 17.2 cm2 Time Measurements MV dec time: 0.26 sec Doppler Measurements & Calculations MV E max tommy: 75.4 cm/sec Lat Peak E' Tommy: 6.5 cm/sec Med Peak E' Tommy: 5.7 cm/sec MV A max tommy: 63.4 cm/sec E/E' lat: 11.6 E/E' med: 13.3 MV E/A: 1.2 MV V2 max: 81.5 cm/sec MV P1/2t max tommy: 69.9 cm/sec Ao V2 max: 123.9 cm/sec MV max P.7 mmHg MV P1/2t: 108.8 msec Ao max P.1 mmHg MV V2 mean: 44.8 cm/sec Ao V2 mean: 86.4 cm/sec MV mean P.93 mmHg MV dec slope: 188.1 cm/sec2 Ao mean P.3 mmHg MV V2 VTI: 28.0 cm MVA(P1/2t): 2.0 cm2 Ao V2 VTI: 26.4 cm LV V1 max: 104.8 cm/sec PA V2 max: 92.5 cm/sec TR max tommy: 202.9 cm/sec LV V1 max P.4 mmHg TR max P.5 mmHg LV V1 mean P.3 mmHg LV V1 mean: 71.1 cm/sec LV V1 VTI: 22.7 cm Interpretation Summary Mild segmental systolic dysfunction (see wall motion). The estimated ejection fraction is 45 %. Mild (1+) mitral valve insufficiency. Trivial tricuspid valve insufficiency. Aortic sclerosis, no stenosis. Right ventricular systolic pressure estimated to be 20 mmHg. Diastolic function is indeterminate. Ordering Physician: Jah Parham Referring Physician: Jah Parham Performed By: Blanco Mcleod RCS
== END ==
PROVIDERS: Family Provider Family Medicine; PCP Family Medicine; Referring Provider Nurse Practitioner Family; Visit Provider Nurse Practitioner Family
DX: I25.5 Ischemic cardiomyopathy (principal); R06.09 Other forms of dyspnea; I25.10 Atherosclerotic heart disease of native coronary artery without angina pectoris; R00.2 Palpitations
CPT/HCPCS: 93225; 93226; 93306

== ENCOUNTER → 2018-11-23 07:41 | Outpatient (CLI) | payer OTHER, SELFPAY ==
[2018-08-16 08:53] VITALS: BMI 28.7
[2018-11-23 09:14] LABS: AST(SGOT) 28 U/L (15-37); Alanine Aminotransfer ALT/SGPT 44 U/L (16-61); Albumin, Serum 4.3 g/dL (3.2-5.0); Alkaline Phosphatase 61 U/L (45-117); Bilirubin, Direct 0.25 mg/dL (0.00-0.30); Cholesterol 147 mg/dL (200); Globulin 3.3 g/dL (2.2-4.2); High Density Lipoprotein 51 mg/dL; Protein, Total 7.6 g/dL (6.4-8.2); Triglycerides 82 mg/dL; Very Low Density Lipoprotein 16 mg/dL (5-40)
== END ==
PROVIDERS: Family Provider Family Medicine; PCP Family Medicine; Referring Provider Nurse Practitioner Family; Visit Provider Nurse Practitioner Family
DX: I25.10 Atherosclerotic heart disease of native coronary artery without angina pectoris (principal); I25.5 Ischemic cardiomyopathy; E78.5 Hyperlipidemia, unspecified; Z79.899 Other long term (current) drug therapy
CPT/HCPCS: 36415; 80061; 80076

== ENCOUNTER → 2019-02-16 09:05 | Outpatient (CLI) | payer MEDICARE, BC, SELFPAY ==
[2019-02-16 07:04] VITALS: BMI 28.7
[2019-02-16 08:20] VITALS: BMI 28.5
[2019-02-16 10:02] LABS: AST(SGOT) 34 U/L (15-37); Alanine Aminotransfer ALT/SGPT 55 U/L (16-61); Albumin, Serum 4.1 g/dL (3.2-5.0); Alkaline Phosphatase 58 U/L (45-117); Cholesterol 145 mg/dL (200); Globulin 3.3 g/dL (2.2-4.2); High Density Lipoprotein 54 mg/dL; Protein, Total 7.4 g/dL (6.4-8.2); Triglycerides 95 mg/dL; Very Low Density Lipoprotein 19 mg/dL (5-40)
== END ==
PROVIDERS: Family Provider Family Medicine; PCP Family Medicine; Referring Provider Nurse Practitioner Family; Visit Provider Nurse Practitioner Family
DX: E78.5 Hyperlipidemia, unspecified (principal)
CPT/HCPCS: 36415; 80061; 80076

== ENCOUNTER → 2019-09-01 11:32 | Outpatient (CLI) | payer MEDICARE, BC, SELFPAY ==
[2019-09-01 10:36] VITALS: BMI 28.8
--- NOTE | 2019-09-01 11:36 | RAD_ITS ---
STUDY: X-RAY CHEST REASON FOR EXAM: Male, 63 years old. CHECK UP DUE TO HEART ATTACK IN 2016. TECHNIQUE: PA and lateral views of the chest. COMPARISON: FINDINGS: The lungs are clear and expanded. There is no demonstrated pleural abnormality. Normal size heart. Normal mediastinum and rashad. Normal visualized pulmonary arteries. Normal visualized aortic arch and descending thoracic aorta. Normal visualized thoracic spine. Normal visualized ribs, clavicles, and shoulders. There is no demonstrated abnormality of the visualized soft tissue structures of the upper abdomen. RAD/Chest PA and Lateral IMPRESSION: Normal x-ray examination of the chest. Electronically Signed: Krzysztof Perry MD at 15:18 EST Tel , Service support ,
[2019-09-01 12:38] LABS: Absolute Lymphocyte Count 1.52 X10^3/uL (0.83-4.51); Absolute Neutrophil Count 4.7 X10^3/uL (2.0-7.7); Basophil# 0.05 X10^3/uL; Basophil% 0.7 % (0-1); Eosinophil# 0.11 X10^3/uL; Eosinophils% 1.6 % (0-5); Hematocrit 45.2 % (40-54); Hemoglobin 15.2 g/dL (13.0-16.5); Lymphocyte # 1.52 X10^3/ul (4.0); Lymphocyte % 21.8 % (19-41); Mean Corp Hgb Conc 33.6 g/dL (32-36); Mean Corpuscular Hgb 29.9 pg (27.0-32.0); Mean Platelet Vol. 11.1 fl (6.2-12.0); Monocyte# 0.58 X10^3/uL; Monocyte% 8.3 % (0-10); NRBC Flagged by Analyzer 0 % (0-5); Neutrophil # 4.68 X10^3/uL (2.7-7.7); Neutrophil % 67.3 % (47-70); Platelet Count 204 K/mm3 (150-450); RBC Distribution Width CV 12.7 % (11.6-14.6); RBC Distribution Width SD 41.6 fl (35.1-43.9); Red Blood Count 5.08 M/mm3 (4.6-6.2)
[2019-09-01 13:22] LABS: AST(SGOT) 35 U/L (15-37); Alanine Aminotransfer ALT/SGPT 67 U/L (16-61); Albumin, Serum 4.1 g/dL (3.2-5.0); Alkaline Phosphatase 52 U/L (45-117); Anion Gap 4 (5-15); BUN 17 mg/dL (7-18); BUN/Creat Ratio 14.9 RATIO (10-20); Bilirubin, Direct 0.23 mg/dL (0.00-0.30); Calcium,Total 9.5 mg/dL (8.5-10.1); Chloride 106 mmol/L (98-107); Cholesterol 235 mg/dL (200); Creatinine, Serum 1.14 mg/dL (0.70-1.30); EST Glomerular Filtration Rate 68 mL/min (>60); Est Glom Filt Rate - Afr Amer 83 mL/min (>60); Globulin 3.5 g/dL (2.2-4.2); Glucose 117 mg/dL (74-106); High Density Lipoprotein 57 mg/dL; Potassium 4.2 mmol/L (3.5-5.1); Protein, Total 7.6 g/dL (6.4-8.2); Sodium Level 140 mmol/L (136-145); Triglycerides 80 mg/dL; Very Low Density Lipoprotein 16 mg/dL (5-40)
== END ==
PROVIDERS: PCP Family Medicine; Referring Provider Internal Medicine Cardiovascular Disease; Visit Provider Internal Medicine Cardiovascular Disease
DX: I10 Essential (primary) hypertension (principal); I25.10 Atherosclerotic heart disease of native coronary artery without angina pectoris; I25.5 Ischemic cardiomyopathy; E78.5 Hyperlipidemia, unspecified; E78.00 Pure hypercholesterolemia, unspecified; Z95.5 Presence of coronary angioplasty implant and graft
CPT/HCPCS: 71046; 80048; 80061; 80076; 85025

== ENCOUNTER → 2019-10-03 06:41 | Outpatient (CLI) | payer MEDICARE, BC, SELFPAY ==
[2019-09-01 10:36] VITALS: BMI 28.8
--- NOTE | 2019-10-03 06:41 | ECHOD_ITS ---
Reason For Study: CAD Procedure This was a 2D Doppler, Color Flow transthoracic echocardiogram. The exam was of adequate technical quality. Exam performed in department. Left Ventricle Normal LV size. Mild segmental systolic dysfunction (see wall motion). The estimated ejection fraction is 50 %. No evidence for diastolic dysfunction. Mid-Anterior : Hypokinetic. Mid-Lateral : Hypokinetic. Mid-inferoseptal : Hypokinetic. Mid-anteroseptal : Hypokinetic. [place] : Akinetic. Right Ventricle Normal RV size. Normal systolic function. Atria Normal left atrium. Normal right atrium. No doppler evidence for ASD. Mitral Valve There is no mitral annular calcification. Normal mitral valve. Mild (1+) mitral valve insufficiency. Tricuspid Valve Normal tricuspid valve. Mild tricuspid valve insufficiency. Right ventricular systolic pressure estimated to be 20 mmHg. Aortic Valve Trisinus/trileaflet aortic valve. Mild diffuse aortic valve thickening. Pulmonic Valve The pulmonic valve is not well visualized. Great Vessels Mildly dilated aortic root. Pericardium/Pleural No pericardial effusion. MMode/2D Measurements & Calculations LVIDd: 4.9 cm IVSd: 1.0 cm Ao root diam: 4.1 cm LVIDs: 3.5 cm LVPWd: 1.3 cm RVDd: 4.0 cm FS: 30.3 % LAV(MOD-bp): 56.7 ml LA A4 area: 16.4 cm2 LA dimension(2D): 3.9 cm LAV(MOD-bp) Indexed: 26.5 ml/m2 LAV(MOD-sp2): 66.7 ml LAV(MOD-sp4): 41.3 ml RA A4 area: 13.9 cm2 Time Measurements MV dec time: 0.25 sec Doppler Measurements & Calculations MV E max tommy: 60.2 cm/sec Lat Peak E' Tommy: 7.6 cm/sec Med Peak E' Tommy: 4.6 cm/sec MV A max tommy: 75.8 cm/sec E/E' lat: 8.0 E/E' med: 13.0 MV E/A: 0.80 Ao V2 max: 135.9 cm/sec LV V1 max: 98.2 cm/sec PA V2 max: 105.8 cm/sec Ao max P.4 mmHg LV V1 max P.9 mmHg TR max tommy: 205.2 cm/sec TR max P.9 mmHg Interpretation Summary Mild segmental systolic dysfunction (see wall motion). The estimated ejection fraction is 50 %. Mild (1+) mitral valve insufficiency. Mild tricuspid valve insufficiency. Mild diffuse aortic valve thickening. Mildly dilated aortic root. Right ventricular systolic pressure estimated to be 20 mmHg. No evidence for diastolic dysfunction. Ordering Physician: Alexandru Milligan Referring Physician: MEJIA ALVARES Performed By: Maria T Oliver RDCS, RVT
--- NOTE | 2019-10-03 09:22 | STRESSREP_ITS ---
Stress Test Report Date: 10-03-2019 Procedure: Exercise tolerance test/imaging study Indications: Shortness of breath/dyspnea on exertion MS: CAD; status post MS; status post PCI Consent: Per the patient Procedure: The patient exercised on a Mo protocol for 9 minutes completing Stage III achieving a peak heart rate of 137 bpm (88 % predicted maximal heart rate) with a peak blood pressure 164/82 mmHg and a peak MET capacity of 10 METs. The baseline ECG demonstrated normal sinus rhythm; anterior MS of indeterminate age. The peak exercise ECG demonstrated somatic/motion artifact with no obvious ECG changes. There were occasional PACs during recovery and a rare PVC during recovery. The functional capacity was considered good. There was no complaint of chest discomfort during exercise or recovery0. The examination was discontinued secondary to leg discomfort. Impression: 1. Technically adequate (percent predicted maximal heart rate greater than 85%) exercise tolerance test 2. Peak exercise ECG with somatic/motion artifact with no obvious ECG changes 3. There were occasional PACs during recovery and a rare PVC during recovery 4. Nuclear images pending Myocardial perfusion imaging study: Technique: The patient was injected with 14.1 mCi of technetium 99m Cardiolite and subsequently rest SPECT Cardiolite nuclear imaging was obtained in the horizontal long, vertical long, and short axis views. The patient exercised on a Mo protocol for 9 minutes completing Stage III achieving a peak heart rate of 137 bpm (88 % predicted maximal heart rate) with a peak blood pressure 164/82 mmHg and a peak MET capacity of 10 METs. The patient was injected with 43.9 mCi of technetium 99m Cardiolite and subsequently stress SPECT Cardiolite nuclear imaging was obtained in the horizontal long, vertical long, and short axis views. A gated Cardiolite study at peak stress was obtained. Interpretation: Rest and stress SPECT Cardiolite nuclear imaging status post realignment, normalization, and attenuation correction, demonstrates diminished to absence of myocardial perfusion/tracer uptake in portions of the distal anterior, distal anteroseptal, distal inferoseptal, distal lateral, and distal inferior segments as well as the apical segments with no significant change between rest and stress. There is diminished end systolic thickening and brightening in the aforementioned areas. The gated Cardiolite study demonstrates diminished myocardial thickening and inward wall motion in the aforementioned areas. The reported LVEF is 50 %. Impression: 1. Rest and stress SPECT Cardiolite nuclear imaging demonstrate myocardial perfusion changes compatible with an area of previous myocardial injury/infarction involving portions of the distal anterior, distal anteroseptal, distal inferoseptal, distal lateral, and distal inferior segments as well as the apical segments with, status post mvvyuitgebn-eswzzxeruvcak-vja attenuation correction, no significant changes between rest and stress considered diagnostic for associated stress-induced myocardial ischemia. 2. The gated Cardiolite study reports an LVEF of 50 %. This note was generated with [email or web address] software. It may contain incorrect words, spelling, and punctuation that were not noted in checking the note before signing.
== END ==
PROVIDERS: PCP Family Medicine; Referring Provider Internal Medicine Cardiovascular Disease; Visit Provider Internal Medicine Cardiovascular Disease
DX: I25.10 Atherosclerotic heart disease of native coronary artery without angina pectoris (principal); I25.5 Ischemic cardiomyopathy; I10 Essential (primary) hypertension; E78.5 Hyperlipidemia, unspecified; Z95.5 Presence of coronary angioplasty implant and graft
CPT/HCPCS: 78452; 93017; 93306; A9500; A4216

== ENCOUNTER 2020-05-11 04:21 | Inpatient (IN) | payer MEDICARE, BC, SELFPAY ==
[2020-03-07 14:26] VITALS: BMI 28.8
[2020-05-11] VITALS (27 sets, daily range): BP systolic 127–203; BP diastolic 71–107; PULSE 50–66; RESP 12–18; TEMP 36.1–36.9; O2SAT 96–100; BMI 29.5; BMI 29.0; BMI 29.1
--- NOTE | 2020-05-11 04:27 | ED.RN ---
CALLED FOR EKG, PULLED OLD EKGS FOR
--- NOTE | 2020-05-11 04:42 | EKG12_ITS ---
Test Reason : CP Blood Pressure : / mmHG Vent. Rate : 056 BPM Atrial Rate : 056 BPM P-R Int : 206 ms QRS Dur : 090 ms QT Int : 404 ms P-R-T Axes : 024 -33 041 degrees QTc Int : 389 ms Sinus bradycardia Left axis deviation Inferior infarct , age undetermined Anterolateral infarct , age undetermined Abnormal ECG Confirmed by MATT MARCELINO, ROMERO ([id number]), avid editor DEBRA GATES ([id number]) on 05/15/2020 9:50:59 AM Referred By: BB Confirmed By:ROMERO GUTIERREZ MD
--- NOTE | 2020-05-11 04:46 | ED.DCSUM_ITS ---
History of Present Illness Chief Complaint: Chest Pain Informant: Patient, EMS Onset: Today, Hours - 2 Activity at onset: - - Sitting in car, backing down the driveway on the way to work. Sudden onset. Timing: Continuous Quality: Sharp Location: - - Lower retrosternal Current Severity: Mild Maximum Severity: Severe Worsened By: Nothing Associated Symptoms: Diaphoresis, Dyspnea - Mild. Negative for: Nausea, Vomiting, Cough, Fever, Lightheadedness, Acid Reflux, Palpitations Narrative: Patient has had a prior heart attack with stent placed, this was 4 years ago. After having this pain which he has not felt before, he took 5 baby aspirin, nitroglycerin, had no relief. In waiting for ambulance he took another 5 aspirin. He is improved now. There was one time in the past 20 minutes when he felt like it was pleuritic but for the most part it has not been. The pain started by radiating into the left shoulder, there is no radiation now and it is just retrosternal. 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 No recent hospitalizations or surgeries.. Negative for: Prior DVT or PE, Cancer, OCP + Smoking + >/=35 - Past Medical History (1) History of myocardial infarction Status: Chronic (2) Atherosclerotic heart disease of [place] coronary artery without angina pectoris Status: Chronic Comment: PCI/LETICIA to LAD 12/25/15 (3) Essential hypertension Status: Chronic (4) Ischemic cardiomyopathy Status: Chronic Past Medical History - Allergies and Home Meds Allergies/Adverse Reactions: Allergies Wurixnu-Abo-Hcy Reductase Inhibitor Adverse Reaction (Severe, Verified 05/11/20 04:25) Myalgias Primary Care Physician: Roney De La Garza MD [Primary Care Provider] - Surgical History: appendectomy, tonsillectomy Lives: Spouse/ Significant Other Smoking Status: Former smoker - Family History Maternal Family History: Family History (Last Reviewed 09/01/19 @ 10:40 by Blossom Bravo) Father CAD (coronary artery disease) Brother CAD (coronary artery disease) Brother CAD (coronary artery disease) Family History: Reports: Hypertension Paternal Family History: Family History (Last Reviewed 09/01/19 @ 10:40 by Blossom Bravo) Father CAD (coronary artery disease) Brother CAD (coronary artery disease) Brother CAD (coronary artery disease) Family History: Reports: Heart Disease, - - father with cabg, stent pacemaker, brother with heart disease. Review of Systems General: Reports: Sweats. Denies: Chills, Fever Eyes: Denies: Visual changes - bilaterally, Diplopia ENT: Denies: Rhinorrhea, Sore throat Cardiovascular: Reports: Chest pain. Denies: Palpitations Respiratory: Reports: Dyspnea. Denies: Cough, Dyspnea on exertion Gastrointestinal: Denies: Abdominal pain, Nausea, Vomiting, Diarrhea, Melena, Hematochezia Genitourinary: Denies: Dysuria, Hematuria, Frequency Musculoskeletal: Denies: Back pain, Swelling, Extremity Pain Skin: Denies: Rash, Wounds Neurological: Denies: Headache, Weakness, Numbness Physical Exam Vital Signs/Narrative: Vital Signs Temp Pulse Resp BP Pulse Ox 05/11/20 04:21 98.3 F 58 L 13 180/94 H 98 Inital Vital Signs reviewed: Yes General: Well nourished, Well developed, No Acute Distress Head: Normocephalic, Atraumatic Eyes: Perrl, EOMI ENT: Moist mucous membranes, No rhinorrhea Neck: Supple, Nontender, No JVD Cardiovascular: Regular rate, Regular rhythm, No murmurs Respiratory: No distress, CTA bilaterally - With equal breath sounds present bilaterally and trachea midline, Chest nontender Abdomen: Soft, Nontender, Nondistended, Normal bowel sounds Back: Nontender, Normal Inspection Extremities: Nontender, No edema. Negative for: Calf Tenderness Skin: Normal color, No rash, No Trauma Neurological: Alert, Oriented x3, Cranial nerves II-XII grossly intact, Normal Strength, Normal Sensation Psychological: Normal affect, Normal Mood Diagnostic/Tx/Re-eval Impressions Chest X-Ray 05/11/20 04:49 IMPRESSION: Degenerative changes, as described above. No demonstrated acute cardiopulmonary process. Electronically Signed: Argueta Alexis, at 5:22 EDT Tel , Service support , 05/11/20 04:49 Chest 1 View (Portable) [RAD] Stat Laboratory Results 05/11/20 05/11/20 05/11/20 04:30 04:30 04:30 WBC 5.3 RBC 4.39 L Hgb 13.9 Hct 39.6 L MCV 90.2 MCH 31.7 MCHC 35.1 RDW Std Deviation 41.5 RDW Coeff of Katiana 12.6 Plt Count 178 MPV 11.2 Immature Gran % (Auto) 0.200 Neut % (Auto) 59.9 Lymph % (Auto) 27.3 Woods % (Auto) 9.0 Eos % (Auto) 3.0 Baso % (Auto) 0.6 Absolute Neuts (auto) 3.2 Absolute Lymphs (auto) 1.45 Nucleated RBC % 0 D-Dimer Quant (PE/DVT) <= 0.27 Sodium 140 Potassium 4.3 Chloride 108 H Carbon Dioxide 27.0 Anion Gap 5 BUN 19 H Creatinine 1.16 Estim Creat Clear Calc 68.75 Est GFR (MDRD) Af Amer 81 Est GFR (MDRD) Non-Af 67 BUN/Creatinine Ratio 16.4 Glucose 137 H Calcium 9.1 Troponin I 0.084 H - Rhythm Strip Rhythm Strip: Sinus Rhythm Rate: 56 Ectopy: None - EKG Initial EKG Interpretation: Sinus Rhythm, No Acute Injury Pattern, - - Anteroseptal Q waves and T wave inversions. Inferior Q waves. Leftward axis. Prior: Unchanged Follow-up EKG Interpretation: Sinus Rhythm, No Acute Injury Pattern, - - Anteroseptal Q waves and T wave inversions. Inferior Q waves. Leftward axis. Prior: Unchanged - compared w/ initial today Treatment: Aspirin - 820mg taken FIBER[employer]ER, Heparin IV, Morphine, NTG SL, NTG IV, - - held beta estella due to relative bradycardia OUMAR Risk: Age >/= 65, >/= 3RF, H/O CAD, ASA within 7 days, Elevated Enzymes Score: 5 - Medical Decision Making Patient is certainly having atypical pain, he describes it as sharp, retrosternal, occasionally pleuritic, also feeling like he needs to belch and he recalls having that sensation when he had his heart attack 4 years ago. His d- dimer is negative ruling out pulmonary embolus as acute cause for this discomfort. His EKG shows no acute injury or changes compared with his prior, however his troponin is elevated in the face of normal renal function. Certainly given this and his history, I am not able to rule out acute coronary syndrome. He was initially given morphine here after taking nitroglycerin and having no effect at home, morphine did not help. He was uncomfortable. I repeated his EKG. it is unchanged. Discussed with Dr. Langley, who agrees with placing him in the ICU on a nitroglycerin drip, advises placing him on a heparin drip, and he will evaluate along with hospitalist. Critical care time (excluding procedures): 30-74 minutes - 32 minutes, including time spent discussing with patient and family, consultants, arranging admission, performing direct patient care and reevaluation at the bedside, and documentation. ED Disposition - Plan for ED Patient: Disposition: Acute Care Hospital [facility] Diagnosis: Unstable angina Referrals: Roney De La Garza MD [Primary Care Provider] -
--- NOTE | 2020-05-11 04:49 | RAD_ITS ---
STUDY: X-RAY CHEST REASON FOR EXAM: Male, 64 years old. 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 COMPARISON: None. FINDINGS: The lungs are clear and expanded. There is no demonstrated pleural abnormality. Normal size heart. Normal mediastinum and rashad. Normal visualized pulmonary arteries. Normal visualized aortic arch and descending thoracic aorta. Normal visualized thoracic spine. There is degenerative osteoarthritis of the bilateral shoulders. There is no demonstrated abnormality of the visualized soft tissue structures of the upper abdomen. RAD/Chest 1 View (Portable) IMPRESSION: Degenerative changes, as described above. No demonstrated acute cardiopulmonary process. Electronically Signed: Ellie Espinoza, at 5:22 EDT Tel , Service support ,
[2020-05-11] MEDS: Morphine 4 MG/ML Syringe IV (04:50)
[2020-05-11] MEDS: 0.9% Normal Saline 1,000 ML 250 ML IV (04:51)
[2020-05-11 04:56] LABS: Absolute Lymphocyte Count 1.45 X10^3/uL (0.83-4.51); Absolute Neutrophil Count 3.2 X10^3/uL (2.0-7.7); Basophil# 0.03 X10^3/uL; Basophil% 0.6 % (0-1); Eosinophil# 0.16 X10^3/uL; Hematocrit 39.6 % (40-54); Hemoglobin 13.9 g/dL (13.0-16.5); Lymphocyte # 1.45 X10^3/ul (4.0); Lymphocyte % 27.3 % (19-41); Mean Corp Hgb Conc 35.1 g/dL (32-36); Mean Corpuscular Hgb 31.7 pg (27.0-32.0); Mean Corpuscular Volume 90.2 fL (80-94); Mean Platelet Vol. 11.2 fl (6.2-12.0); Monocyte# 0.48 X10^3/uL; NRBC Flagged by Analyzer 0 % (0-5); Neutrophil # 3.19 X10^3/uL (2.7-7.7); Neutrophil % 59.9 % (47-70); Platelet Count 178 K/mm3 (150-450); RBC Distribution Width CV 12.6 % (11.6-14.6); RBC Distribution Width SD 41.5 fl (35.1-43.9); Red Blood Count 4.39 M/mm3 (4.6-6.2); White Blood Count 5.3 K/mm3 (4.4-11.0)
[2020-05-11] MEDS: Acetaminophen 325 MG Tablet 650 MG PO ×2 (05:04→11:17)
[2020-05-11 05:09] LABS: Anion Gap 5 (5-15); BUN 19 mg/dL (7-18); BUN/Creat Ratio 16.4 RATIO (10-20); Calcium,Total 9.1 mg/dL (8.5-10.1); Chloride 108 mmol/L (98-107); Creatinine, Serum 1.16 mg/dL (0.70-1.30); EST Glomerular Filtration Rate 67 mL/min (>60); Est Glom Filt Rate - Afr Amer 81 mL/min (>60); Estimated Creatinine Clearance 68.75 ml/min; Glucose 137 mg/dL (74-106); Potassium 4.3 mmol/L (3.5-5.1); Sodium Level 140 mmol/L (136-145)
[2020-05-11 05:12] LABS: D-Dimer Quantitative (DVT/PE) <= 0.27 FEU/ug/m (0.27-0.49)
--- NOTE | 2020-05-11 05:26 | EKG12_ITS ---
Test Reason : REPEAT Blood Pressure : / mmHG Vent. Rate : 051 BPM Atrial Rate : 051 BPM P-R Int : 196 ms QRS Dur : 092 ms QT Int : 422 ms P-R-T Axes : 026 -32 041 degrees QTc Int : 388 ms Sinus bradycardia Left axis deviation Inferior infarct , age undetermined Anterolateral infarct , age undetermined Abnormal ECG Confirmed by MATT MARCELINO, ROMERO ([id number]), newspaper copy editor DEBRA GATES ([id number]) on 05/15/2020 9:51:18 AM Referred By: BB Confirmed By:ROMERO GUTIERREZ MD
[2020-05-11] MEDS: Nitroglycerin SL (ED/IMG/CATH) 0.4 MG TABLET SUBLINGUAL (05:39)
[2020-05-11] MEDS: Nitroglycerin Infusion 250 ML 3 MG CONT INF (05:40)
--- NOTE | 2020-05-11 05:48 | PCM.HP.STD ---
Problem List (1) NSTEMI (non-ST elevated myocardial infarction) Status: Acute (2) Palpitations Status: Chronic (3) Essential hypertension Status: Chronic (4) History of myocardial infarction Status: Chronic (5) Presence of stent in coronary artery Status: Chronic Comment: PCI/LETICIA to LAD 12/25/15 (6) Long-term use of high-risk medication Status: Chronic (7) Hyperlipidemia Status: Chronic Qualifiers: Hyperlipidemia type: unspecified Qualified Code(s): E78.5 - Hyperlipidemia, unspecified (8) Ischemic cardiomyopathy Status: Chronic (9) Atherosclerotic heart disease of [place] coronary artery without angina pectoris Status: Chronic Qualifiers: [place] vs. transplanted heart: [place] heart Qualified Code(s): I25.10 - Atherosclerotic heart disease of [place] coronary artery without angina pectoris Comment: PCI/LETICIA to LAD 12/25/15 History of Present Illness Date of Admission: 05/11/20 Chief Complaint: Chest pain The patient is a 64 year old M with a significant history of ischemic cardiomyopathy; CAD status post stents who presents to the emergency department with chest pain. 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 He was in a pickup truck at the drive-through of his home driving told his semi-truck when he had a sudden onset excruciating substernal pain. He described the pain as sharp. The pain is constant. The pain radiates towards his left shoulder. Associated with his symptom is chills and claustrophobia. He denies any ameliorating or aggravating factors to the pain. He always carry his nitroglycerin in his pocket following heart attack 4 years ago. He took nitroglycerin sublingual x2 doses. Not getting any relief. He went back to his house and took 5 tablets of baby aspirin. He made his called the paramedics. Before paramedics arrived he took another 5 tablets of aspirin. He checked his blood pressure at home and it was 258/121. His chest pain is reminiscent of his previous heart attack. However with his previous heart attack it may radiate to his left shoulder. Past Medical History Past Medical History (Chronic Problems): Chronic Problems (Last Reviewed 05/11/20 @ 06:[address] Melchor Stone MD) Palpitations (Chronic) Essential hypertension (Chronic) History of myocardial infarction (Chronic) Presence of stent in coronary artery (Chronic ~12/25/15) PCI/LETICIA to LAD 12/25/15 Long-term use of high-risk medication (Chronic) Hyperlipidemia (Chronic) Ischemic cardiomyopathy (Chronic) Atherosclerotic heart disease of [place] coronary artery without angina pectoris (Chronic) PCI/LETICIA to LAD 12/25/15 Medical History: Medical History (Last Reviewed 05/11/20 @ 06:[address] Melchor Stone MD) Essential hypertension (Chronic) I10 History of myocardial infarction (Chronic) I25.2 Long-term use of high-risk medication (Chronic) Z79.899 Hyperlipidemia (Chronic) E78.5 Ischemic cardiomyopathy (Chronic) I25.5 Atherosclerotic heart disease of [place] coronary artery without angina pectoris (Chronic) I25.10 PCI/LETICIA to LAD 12/25/15 Atypical chest pain (Inactive) R07.89 Spinal stenosis M48.00 GERD (gastroesophageal reflux disease) K21.9 Chest pressure (Inactive) R07.89 Allergies Mceerzi-Pya-Kgm Reductase Inhibitor Adverse Reaction (Severe, Verified 05/11/20 04:25) Myalgias Home Medications: Ambulatory Orders Medication Instructions Recorded Aspirin [Adult Low Dose Aspirin EC] 81 mg PO DAILY 01/24/16 Cyanocobalamin [Vitamin B12] 500 mcg PO BID 09/26/17 Krill Oil 500 mg PO DAILY 09/26/17 coenzyme Q10 100 mg capsule 100 mg PO QDAY 02/04/18 omeprazole 20 mg capsule,delayed 20 mg PO DAILY 08/16/18 release potassium 99 mg tablet 99 mg PO DAILY 08/16/18 nitroglycerin 0.4 mg sublingual 0.4 mg SUBLINGUAL Q5M PRN #25 tab 01/27/19 tablet ezetimibe 10 mg tablet 10 mg PO DAILY #30 tab 09/01/19 omega-3 fatty acids 1,000 mg 1,000 mg PO DAILY 09/01/19 capsule pyridoxine (vitamin B6) 100 mg 100 mg PO BID 09/01/19 tablet turmeric 400 mg capsule 667 mg PO BID cap 09/01/19 losartan 100 mg tablet 100 mg PO DAILY #30 tab 10/05/19 carvedilol 3.125 mg tablet 3.125 mg PO BID #180 tab 01/10/20 Surgical History: Surgical History (Last Reviewed 05/11/20 @ 06:[address] Melchor Stone MD) Presence of stent in coronary artery (Chronic) Onset Date: ~12/25/15 Z95.5 PCI/LETICIA to LAD 12/25/15 Postsurgical percutaneous transluminal coronary angioplasty (PTCA) status Onset Date: ~12/15/15 Z98.61 PCI/LETICIA to LAD 12/25/15 History of back surgery Z98.890 History of tonsillectomy Z90.89 Hx of appendectomy Z90.49 Surgical History: appendectomy, tonsillectomy Lives: Spouse/ Significant Other Smoking Status: Former smoker - *Family History Maternal Family History: Family History (Last Reviewed 05/11/20 @ 06:[address] Melchor Stone MD) Father CAD (coronary artery disease) Brother CAD (coronary artery disease) Brother CAD (coronary artery disease) History Items: Hypertension Paternal Family History: Family History (Last Reviewed 05/11/20 @ 06:[address] Melchor Stone MD) Father CAD (coronary artery disease) Brother CAD (coronary artery disease) Brother CAD (coronary artery disease) History Items: Heart Disease, - - father with cabg, stent pacemaker, brother with heart disease. Review of Systems Constitutional: Reports: Chills. Denies: Fever, Weight Change HEENT: Denies: Head Aches, Sinus Congestion, Sinus Drainage Cardiovascular: Reports: Chest Pain. Denies: Palpitations Respiratory: Denies: Cough, Shortness of breath at rest, Sputum production Gastrointestinal: Denies: Abdominal Pain, Nausea, Vomiting Genitourinary: Denies: Dysuria Musculoskeletal: Reports: Shoulder Pain. Denies: Joint Pain, Joint Tenderness Skin: Denies: Rash, Wounds Neurological: Denies: Numbness, Tingling, Focal weakness Psychiatric: Denies: Anxiety, Depression, Homicidal Ideations, Suicidal Ideations Hematologic/ Lymphatic: Denies: Easy Bruising, Easy Bleeding VTE Information - Inpt Only VTE Present on Admission: No VTE Mechan Device Prophylaxis: None VTE Pharm Prophylaxis ordered?: No Reason prophylaxis not ordered:: Treatment Not Indicated Patient Problems: Active and Suspected Problems (Last Reviewed 05/11/20 @ 06:[address] Melchor Stone MD) NSTEMI (non-ST elevated myocardial infarction) (Acute) - Physical Exam Vitals/I&O's: Vital Signs Temp Pulse Resp BP Pulse Ox 98.3 F 55 L 13 203/107 H 100 05/11/20 04:21 05/11/20 05:40 05/11/20 04:21 05/11/20 05:40 05/11/20 04:48 Oxygen Flow Rate (L/min) 2 Oxygen Delivery Method Nasal Cannula Weight: 98.9 kg Body Mass Index (BMI) 29.5 General: Alert, Oriented x3, Cooperative HEENT: Atraumatic, PERRLA, EOMI, Normocephalic Neck: Supple, No JVD, Negative Carotid Bruits Lungs: Clear to auscultation, Normal air movement Cardiovascular: Regular rate, No murmurs Abdomen: Bowel Sounds Present, Soft, Non Tender Extremities: No edema, Capillary Refill Less than 3 Seconds Skin: No rashes, No breakdown Musculoskeletal: No Tenderness to Palpation of Joints or Extremities Neurological: Cranial nerves II-XII grossly intact Psych/Mental Status: Normal Affect, Appropriate Laboratory Results 05/11/20 04:30: WBC 5.3, RBC 4.39 L, Hgb 13.9, Hct 39.6 L, MCV 90.2, MCH 31.7, MCHC 35.1, RDW Std Deviation 41.5, RDW Coeff of [place] 12.6, Plt Count 178, MPV 11.2, Immature Gran % (Auto) 0.200, Neut % (Auto) 59.9, Lymph % (Auto) 27.3, [place] % (Auto) 9.0, Eos % (Auto) 3.0, Baso % (Auto) 0.6, Absolute Neuts (auto) 3.2, Absolute Lymphs (auto) 1.45, Nucleated RBC % 0 05/11/20 04:30: Sodium 140, Potassium 4.3, Chloride 108 H, Carbon Dioxide 27.0, Anion Gap 5, BUN 19 H, Creatinine 1.16, Estim Creat Clear Calc 68.75, Est GFR (MDRD) Af Amer 81, Est GFR (MDRD) Non-Af 67, BUN/Creatinine Ratio 16.4, Glucose 137 H, Calcium 9.1, Troponin I 0.084 H 05/11/20 04:30: D-Dimer Quant (PE/DVT) <= 0.27 Current Medications Sodium Chloride () 1,000 mls @ 250 mls/hr IV .Q4H [facility] Last Admin: 05/11/20 04:51 Dose: 250 mls/hr Documented by: Nitroglycerin/Dextrose () 250 mls @ 3 mls/hr CONT INF .[id number] [facility]; Protocol Last Admin: 05/11/20 05:40 Dose: 5 mcg/min, 3 mls/hr Documented by: Heparin Sodium/Dextrose () 25,000 units in 250 mls @ 0 mls/hr IV .Q0M [facility]; Protocol Assessment/Plan All Active Problems (Last Reviewed 05/11/20 @ 06:[address] Melchor Stone MD) NSTEMI (non-ST elevated myocardial infarction) (Acute) The patient is a 64 year old M with a significant history of ischemic cardiomyopathy; CAD status post stents who presents to the emergency department with chest pain; and elevated troponin.. Non-STEMI Place on a critical care bed at intensive care unit. Actual CXR image was independently visualized. No acute cardiopulmonary process was noted. Actual EKG tracing was independently visualized. EKG tracing showed Q waves in inferior leads. This is unchanged from previous EKG in 2018. ASA 81 mg p.o. daily ordered On nitroglycerin drip and heparin drip; continued. Morphine as needed for pain ordered We will check lipid panel. Patient reports allergy to statin. On Zetia; continued. Serial cardiac enzymes ordered Stat EKG as needed for chest pain ED discussed the case with inside sales who will follow. Inpatient cardiology consult. Make patient n.p.o. Hypertensive emergency Patient with chest pain and severely elevated blood pressure. Reportedly home blood pressure was 215/121. Highest systolic blood pressure at emergency department was 203. Highest diastolic blood pressure at emergency department was 107. Cozaar and metoprolol continued. Trend blood pressures. On a nitroglycerin drip; continued. Complains of headache secondary to nitro; tolerable. Received Tylenol at emergency department. Tylenol PRN continued. Alcoholism Reportedly he sips on bourbon daily. He does not know the exact amount. The patient and his think he would not withdraw he does not drink for a couple of days. Clinical monitoring. Counseled. DVT prophylaxis Not indicated since patient is on heparin drip for non-STEMI. Inpatient E&M: 11503 Init Hosp L3
[2020-05-11 06:37] LABS: International Normalized Ratio 1.1; Partial Thromboplast Time 25.8 Seconds (24.1-36.2); Prothrombin Time (Protime)PT. 13.6 SECONDS (11.7-14.9)
[2020-05-11] MEDS: Heparin Injection (Vial) 5,000 UNIT/ML VIAL 7500 UNIT IV (06:40)
[2020-05-11 08:20] LABS: Cholesterol 144 mg/dL (200); High Density Lipoprotein 45 mg/dL; Triglycerides 50 mg/dL; Very Low Density Lipoprotein 10 mg/dL (5-40)
[2020-05-11] MEDS: Cyanocobalamin 500 MCG Tablet PO ×2 (08:36→21:40)
[2020-05-11] MEDS: Pyridoxine HCl 100 MG Tablet PO ×2 (08:36→21:40)
[2020-05-11] MEDS: Pantoprazole Sodium 20 MG Tablet PO (08:36)
[2020-05-11] MEDS: Carvedilol 3.125 MG TABLET PO ×2 (08:36→21:40)
[2020-05-11] MEDS: Losartan Potassium 100 MG Tablet PO (08:37)
[2020-05-11] MEDS: Ezetimibe 10 MG Tablet PO (08:37)
--- NOTE | 2020-05-11 10:55 | PN_ITS ---
Patient Problems: Active and Suspected Problems (Last Reviewed 05/11/20 @ 06:[address] Melchor Stone MD) NSTEMI (non-ST elevated myocardial infarction) (Acute) Unstable angina (Acute) Reason for Visit: NSTEMI Subjective: no further chest pain. +Headache Vitals/I&O's: Vital Signs Temp Pulse Resp BP Pulse Ox 36.2 C L 63 16 149/86 H 99 05/11/20 07:39 05/11/20 10:00 05/11/20 07:39 05/11/20 10:33 05/11/20 07:39 Oxygen Flow Rate (L/min) 2 Oxygen Delivery Method Room Air Weight: 97.3 kg Body Mass Index (BMI) 29.0 Intake and Output for Last 24 Hours 05/09/20 05/10/20 05/11/20 23:59 23:59 23:59 Intake Total 690.3 / 690.3 Balance 690.3 / 690.3 General: Alert, No apparent distress HEENT: Atraumatic, Normocephalic Oral: Moist Mucosa, No Gingival or Mucosal Lesions/ Ulcerations Neck: No Nodes, Thyroid Normal Size and Texture Lungs: Clear to auscultation, Normal air movement, No rhonchi, No wheeze, No rales Cardiovascular: Regular rate, Regular Rhythm, Normal S1, Normal S2 Abdomen: Bowel Sounds Present, Soft, Non Tender, Non-Distended Extremities: No edema, No Calf Tenderness Psych/Mental Status: Normal Affect, Appropriate Laboratory Results 05/11/20 04:30: WBC 5.3, RBC 4.39 L, Hgb 13.9, Hct 39.6 L, MCV 90.2, MCH 31.7, MCHC 35.1, RDW Std Deviation 41.5, RDW Coeff of [place] 12.6, Plt Count 178, MPV 11.2, Immature Gran % (Auto) 0.200, Neut % (Auto) 59.9, Lymph % (Auto) 27.3, [place] % (Auto) 9.0, Eos % (Auto) 3.0, Baso % (Auto) 0.6, Absolute Neuts (auto) 3.2, Absolute Lymphs (auto) 1.45, Nucleated RBC % 0 05/11/20 04:30: Sodium 140, Potassium 4.3, Chloride 108 H, Carbon Dioxide 27.0, Anion Gap 5, BUN 19 H, Creatinine 1.16, Estim Creat Clear Calc 68.75, Est GFR (MDRD) Af Amer 81, Est GFR (MDRD) Non-Af 67, BUN/Creatinine Ratio 16.4, Glucose 137 H, Calcium 9.1, Troponin I 0.084 H 05/11/20 04:30: PT 13.6, INR 1.1, APTT 25.8, D-Dimer Quant (PE/DVT) <= 0.27 05/11/20 07:45: Triglycerides 50, Cholesterol 144, LDL Cholesterol 89, VLDL Cholesterol 10, HDL Cholesterol 45 05/11/20 07:45: Troponin I 2.930 H* Current Medications Acetaminophen (Tylenol) 650 mg PO Q6H PRN PRN PRN Reason: Pain Score 1-10/Temp > 100.7 F Aspirin (Ecotrin) 81 mg PO DAILY@0800 [facility] Last Admin: 05/11/20 08:38 Dose: Not Given Documented by: Carvedilol (Coreg) 3.125 mg PO BID [facility] Last Admin: 05/11/20 08:36 Dose: 3.125 mg Documented by: Cyanocobalamin (Vitamin B12) 500 mcg PO BID [facility] Last Admin: 05/11/20 08:36 Dose: 500 mcg Documented by: Ezetimibe (Zetia) 10 mg PO DAILY [facility] Last Admin: 05/11/20 08:37 Dose: 10 mg Documented by: Heparin Sodium (Porcine) (Heparin Na) 0 unit IV UD PRN; Protocol PRN Reason: dose adjustment Nitroglycerin/Dextrose () 250 mls @ 3 mls/hr CONT INF .[id number] [facility]; Protocol Last Titration: 05/11/20 10:33 Dose: 10 mcg/min, 6 mls/hr Documented by: Heparin Sodium/Sodium Chloride () 25,000 unit in 250 mls @ 14 mls/hr IV .[id number] [facility]; Protocol Last Admin: 05/11/20 06:41 Dose: 1,400 units/hr, 14 mls/hr Documented by: Losartan Potassium (Cozaar) 100 mg PO DAILY [facility] Last Admin: 05/11/20 08:37 Dose: 100 mg Documented by: Morphine Sulfate () 2 mg IV Q3H PRN PRN PRN Reason: Pain Score 6-10/10 Ondansetron HCl (Zofran) 4 mg IV Q8H PRN PRN PRN Reason: NAUSEA/VOMITING Pantoprazole Sodium (Protonix) 20 mg PO DAILY [facility] Last Admin: 05/11/20 08:36 Dose: 20 mg Documented by: Pyridoxine HCl (Vitamin B-6) 100 mg PO BID [facility] Last Admin: 05/11/20 08:36 Dose: 100 mg Documented by: Sodium Chloride () 10 - 40 ml IV UD PRN PRN Reason: SALINE FLUSH STROKE Vital Signs/Narrative: Vital Signs Temp Pulse Resp BP Pulse Ox 05/11/20 10:33 149/86 H 05/11/20 10:00 63 05/11/20 09:30 140/86 H 05/11/20 09:16 57 L 05/11/20 08:48 158/92 H 05/11/20 07:39 36.2 C L 57 L 16 151/88 H 99 05/11/20 07:30 57 L Medical Necessity - Tobacco Use Smoking Status: Former smoker Tobacco Use: Chew Assessment/Plan All Active Problems (Last Reviewed 05/11/20 @ 06:[address] Melchor Stone MD) NSTEMI (non-ST elevated myocardial infarction) (Acute) Unstable angina (Acute) 1. NSTEMI * troponins up to 2.93 * heparin and nitro gtt * continue losartan and carvedilol * cardiology on consultation 2. chronic conditions, stable, but complicate overall clinical picture and care. * HTN, * HLP: known statin intolerance Procedures: Other Procedure - See Report - non-billable rounding, patient seen after midnight.
--- NOTE | 2020-05-11 12:33 | NURSING ---
dr contreras in and calling in tutorial laboratory supervisor for cath. pt aware and consent signed with no questions. pt called and will come in for procedure. groin sites prepped and pt ready
--- NOTE | 2020-05-11 12:55 | CON.PCM_ITS ---
Reason for Consult Date of Consultation: 05/11/20 Reason for Consultation: nstemi History of Present Illness: The patient is a 64 year old M with a significant history of ischemic cardiomyopathy; CAD status post stents who presents to the emergency department with chest pain. 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 He was in a pickup truck at the drive-through of his home driving told his semi-truck when he had a sudden onset excruciating substernal pain. He described the pain as sharp. The pain is constant. The pain radiates towards his left shoulder. Associated with his symptom is chills and claustrophobia. He denies any ameliorating or aggravating factors to the pain. He always carry his nitroglycerin in his pocket following heart attack 4 years ago. He took nitroglycerin sublingual x2 doses. Not getting any relief. He went back to his house and took 5 tablets of baby aspirin. He made his called the paramedics. Before paramedics arrived he took another 5 tablets of aspirin. He checked his blood pressure at home and it was 258/121. His chest pain is reminiscent of his previous heart attack. Patient was started on nitro drip and his chest pain resolved however he is having headache with the nitro drip. His troponin has gone up to 9. Review of systems: All systems reviewed. All else is negative except that in HPI Past Medical History Allergies/Adverse Reactions: Allergies Rftdqyz-Wnb-Uhl Reductase Inhibitor Adverse Reaction (Severe, Verified 05/11/20 04:25) Myalgias Home Medications: Ambulatory Orders Medication Instructions Recorded Aspirin [Adult Low Dose Aspirin EC] 81 mg PO DAILY 01/24/16 Cyanocobalamin [Vitamin B12] 500 mcg PO BID 09/26/17 Krill Oil 500 mg PO DAILY 09/26/17 coenzyme Q10 100 mg capsule 100 mg PO QDAY 02/04/18 omeprazole 20 mg capsule,delayed 20 mg PO DAILY 08/16/18 release potassium 99 mg tablet 99 mg PO DAILY 08/16/18 nitroglycerin 0.4 mg sublingual 0.4 mg SUBLINGUAL Q5M PRN #25 tab 01/27/19 tablet ezetimibe 10 mg tablet 10 mg PO DAILY #30 tab 09/01/19 omega-3 fatty acids 1,000 mg 1,000 mg PO DAILY 01/24/20 capsule pyridoxine (vitamin B6) 100 mg 100 mg PO BID 09/01/19 tablet turmeric 400 mg capsule 667 mg PO BID cap 09/01/19 losartan 100 mg tablet 100 mg PO DAILY #30 tab 10/05/19 carvedilol 3.125 mg tablet 3.125 mg PO BID #180 tab 01/10/20 Past Medical History (Chronic Problems): Chronic Problems (Last Reviewed 05/11/20 @ 06:[address] Melchor Stone MD) Palpitations (Chronic) Essential hypertension (Chronic) History of myocardial infarction (Chronic) Presence of stent in coronary artery (Chronic ~12/25/15) PCI/LETICIA to LAD 12/25/15 Long-term use of high-risk medication (Chronic) Hyperlipidemia (Chronic) Ischemic cardiomyopathy (Chronic) Atherosclerotic heart disease of [place] coronary artery without angina pectoris (Chronic) PCI/LETICIA to LAD 12/25/15 Surgical History: appendectomy, tonsillectomy - *Family History Maternal Family History: Family History (Last Reviewed 05/11/20 @ 06:[address] Melchor Stone MD) Father CAD (coronary artery disease) Brother CAD (coronary artery disease) Brother CAD (coronary artery disease) History Items: Hypertension Paternal Family History: Family History (Last Reviewed 05/11/20 @ 06:[address] Melchor Stone MD) Father CAD (coronary artery disease) Brother CAD (coronary artery disease) Brother CAD (coronary artery disease) History Items: Heart Disease, - - father with cabg, stent pacemaker, brother with heart disease. Lives: Spouse/ Significant Other Smoking Status: Former smoker Tobacco Use: Chew Objective: Vital Signs Temp Pulse Resp BP Pulse Ox 97.2 F L 65 17 127/71 H 97 05/11/20 07:39 05/11/20 12:36 05/11/20 12:36 05/11/20 12:36 05/11/20 12:36 Oxygen Flow Rate (L/min) 2 Oxygen Delivery Method Room Air Weight: 214 lb 8.156 oz Body Mass Index (BMI) 29.0 Intake and Output for Last 24 Hours 05/09/20 05/10/20 05/11/20 23:59 23:59 23:59 Intake Total 1062.6 / 1062.6 Output Total 1150 / 1150 Balance -87.4 / -87.4 General: Awake, Alert, Oriented x 3 HEENT: Atraumatic Oral: Moist Mucosa Neck: Supple Cardiovascular: Regular Rhythm Abdomen: Soft Extremities: No edema Psych/Mental Status: Appropriate 05/11/20 04:30: WBC 5.3, RBC 4.39 L, Hgb 13.9, Hct 39.6 L, MCV 90.2, MCH 31.7, MCHC 35.1, Plt Count 178, MPV 11.2, Immature Gran % (Auto) 0.200, Neut % (Auto) 59.9, Lymph % (Auto) 27.3, [place] % (Auto) 9.0, Eos % (Auto) 3.0, Baso % (Auto) 0.6, Absolute Neuts (auto) 3.2, Nucleated RBC % 0 05/11/20 04:30: Sodium 140, Potassium 4.3, Chloride 108 H, Carbon Dioxide 27.0, Anion Gap 5, BUN 19 H, Creatinine 1.16, Est GFR (MDRD) Af Amer 81, Est GFR (MDRD) Non-Af 67, BUN/Creatinine Ratio 16.4, Glucose 137 H, Calcium 9.1, Troponin I 0.084 H 05/11/20 04:30: PT 13.6, INR 1.1, APTT 25.8, D-Dimer Quant (PE/DVT) <= 0.27 05/11/20 07:45: Triglycerides 50, Cholesterol 144, LDL Cholesterol 89, VLDL Cholesterol 10, HDL Cholesterol 45 05/11/20 07:45: Troponin I 2.930 H* 05/11/20 11:00: Troponin I 9.100 H* Rhythm: EKG: ECHO: Stress Test: Cardiac Cath: PCI: CT Surgery: Holter monitor: EPS: PPM: CXR: Chest CT Scan: Assessment/Plan 1. Non-STEMI: We will proceed with coronary angiography. Rest of the management will be based angiography findings. Risks and benefits discussed with the patient in detail.
--- NOTE | 2020-05-11 14:11 | CL.D_ITS ---
Patient Name: ANDRE JOHNSON Study Date: 05/11/2020 Performing: Jeri Langley MD Ht: 72 inches 183 cm : 1955 Wt: 214.1 lbs 97 kg Age: 64 Gender: male BSA: 2.19 PROCEDURE(S) PERFORMED [id number] CLINICAL PROFILE AND INDICATIONS Indications: ACS <= 24 hrs Heart Failure: None Stress/Imaging Stress/Image Study Performed: No CAD Presentations: Non-STEMI. Symptom onset Date/Time: 05/11/20 02:00:00 Time Estimated CONCLUSIONS CAD as described with no clear culprit lesion for patient's elevated Troponin. EF is 50% with apical hypokinesis which is an old finding seen in his last echo from 09/28. No significant or MR. Patient 's elevated T-I in the setting of OUMAR 2 flow in the LAD could be due to a thrombus in the LAD that h as embolized to the microvasculature. PE could also be considered in the differential diagnosis RECOMMENDATIONS Consider CTA chest to r/o PE. Brilinta 90mg PO BID, ASA 81mg PO daily unless CTA is positive for PE. DESCRIPTION OF PROCEDURE The patient arrived to the procedure lab. The risks and benefits of the procedure as well as a full d escription of our services here and current unavailability of surgical backup were fully explained to the patient and/or their significant other prior to the catheterization. The Timeout was completed, verifying the correct patient and procedure. The patient's procedural site was prepped and draped in the usual fashion. Local anesthetic was given subcutaneously to right groin region with Lidocaine 2%. Using a modified Seldinger technique, arterial access was obtained via the right femoral artery, a 6 Fr sheath was inserted. Left Coronary Artery selective angiography was performed in multiple views u sing a 5 Fr. JL3.5 catheter. Right Coronary Artery selective angiography was then performed in multip le views using a 5 Fr. JR 4 catheter. Left Ventriculography was performed in MACHADO projection using a 5 Fr. Pigtail catheter. LV to AO pullback pressures were then recorded.Contrast was injected through the sheath and the Right Iliac and Femoral artery were assessed for possible closure device.The arterial sheath was pulled and a Perclose closure device was deployed for hemostasis CORONARY ANGIOGRAPHY DOMINANCE: Right Dominant LEFT HEART ASSESSMENT Left Ventricular Ejection Fraction: by LV Gram 50 % Apical Akinesis LEFT MAIN: No significant disease noted LEFT ANTERIOR DESCENDING ARTERY: Mild luminal irregularities, Previously placed stent is patent.There is OUMAR 2 flow in the LAD DIAGONAL 1: Ostial - 40 % Stenosis CIRCUMFLEX ARTERY: PROX CIRC: 20 % Stenosis RIGHT CORONARY ARTERY: MID RCA: 30 % Stenosis DISTAL RCA: 30 % Stenosis RT PLV: 50 % Stenosis VALVE FINDINGS: No Aortic Valve Stenosis No Mitral Insufficency COMPLICATIONS No Complications PROCEDURE MEDICATIONS Versed 1 mg IV Oxygen: 2 L/min via nasal cannula Brilinta 180 mg PO @ 05/11/2020 13:43:40 Nitro glycerin 25mg / 250ml D5W @ 10 mcg/min IV arrived from ICU 05/11/2020 13:22:59 SUMMARY OF HEMODYNAMIC DATA Time AIR REST ECG 13:02:44 AO 136/80 (102) SA 13:20:52 LV 144/-4, 11 13:30:56 LV 140/0, 16 13:31:02 LV 141/0, 21 13:31:44 LVp 150/16, 0 13:32:03 AOp 132/72 (97) 13:32:09 Signed By Jeri Langley MD On 05/11/2020 14:09:36 Jeri Langley MD
--- NOTE | 2020-05-11 15:23 | CASEMGMT ---
RN CM Face to Face with patient for initial transition planning/care coordination assessment. RN CM introduced self and role at [facility]. Patient lying in bed, alert and oriented. Patient willing to participate in assessment and is able to answer all questions appropriately. Care providers, pharmacy, and demographics verified. Patient wishes to discharge home, denies need for home health at this time. Patient states he has no further needs or concerns at this time. CM to follow for discharge planning needs that may arise. PCP: Roney De La Garza Specialists: Srini Fabian Pharmacy: [facility] patient states cardiology discussed Brilinta with patient at discharge, savings card provided to patient Insurance: [employer], [place] Prescription Benefit: yes Living Will/HPOA: yes, Lubna Miguel LNOK: , son Living Arrangements: Patient lives with [place]. Patient states he is independent and able to ambulate stairs. Transportation: self, DME/HHC: Patient states he has BP cuff at home, denies further DME. Disposition Plan: Patient to discharge home with family support and follow-up plans in place. Silvana WEINSTEIN, RN, CM
--- NOTE | 2020-05-11 16:35 | NURSING ---
report called to cash on pcu with no questions. 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
[2020-05-11 20:40] LABS: Partial Thromboplast Time 60.1 Seconds (24.1-36.2)
[2020-05-12 02:18] LABS: Absolute Lymphocyte Count 1.53 X10^3/uL (0.83-4.51); Absolute Neutrophil Count 4.1 X10^3/uL (2.0-7.7); Basophil# 0.03 X10^3/uL; Basophil% 0.5 % (0-1); Eosinophil# 0.13 X10^3/uL; Eosinophils% 2.1 % (0-5); Hematocrit 40.4 % (40-54); Lymphocyte # 1.53 X10^3/ul (4.0); Lymphocyte % 24.4 % (19-41); Mean Corp Hgb Conc 34.7 g/dL (32-36); Mean Corpuscular Hgb 31.3 pg (27.0-32.0); Mean Corpuscular Volume 90.4 fL (80-94); Mean Platelet Vol. 10.8 fl (6.2-12.0); Monocyte# 0.48 X10^3/uL; Monocyte% 7.7 % (0-10); NRBC Flagged by Analyzer 0 % (0-5); Neutrophil # 4.08 X10^3/uL (2.7-7.7); Neutrophil % 65.1 % (47-70); Platelet Count 167 K/mm3 (150-450); RBC Distribution Width CV 12.7 % (11.6-14.6); RBC Distribution Width SD 41.4 fl (35.1-43.9); Red Blood Count 4.47 M/mm3 (4.6-6.2); White Blood Count 6.3 K/mm3 (4.4-11.0)
[2020-05-12 02:32] LABS: ALB/GLOB Ratio 1.1 RATIO (0.9-2.4); AST(SGOT) 83 U/L (15-37); Alanine Aminotransfer ALT/SGPT 50 U/L (16-61); Albumin, Serum 3.4 g/dL (3.2-5.0); Alkaline Phosphatase 46 U/L (45-117); Anion Gap 6 (5-15); BUN 16 mg/dL (7-18); BUN/Creat Ratio 15.8 RATIO (10-20); Calcium,Total 8.9 mg/dL (8.5-10.1); Chloride 110 mmol/L (98-107); Creatinine, Serum 1.01 mg/dL (0.70-1.30); EST Glomerular Filtration Rate 78 mL/min (>60); Est Glom Filt Rate - Afr Amer 95 mL/min (>60); Estimated Creatinine Clearance 78.97 ml/min; Globulin 3.2 g/dL (2.2-4.2); Glucose 122 mg/dL (74-106); Potassium 3.7 mmol/L (3.5-5.1); Protein, Total 6.6 g/dL (6.4-8.2); Sodium Level 142 mmol/L (136-145)
[2020-05-12 02:38] LABS: Partial Thromboplast Time 66.2 Seconds (24.1-36.2)
[2020-05-12 02:48] VITALS: BP 140/91; PULSE 69; RESP 12; TEMP 36.7; O2SAT 95
[2020-05-12 03:01] VITALS: PULSE 65
--- NOTE | 2020-05-12 05:55 | CT_ITS ---
HISTORY: CP EXAMINATION: CTA Chest with Contrast Injection TECHNIQUE: Helically acquired images were obtained of the chest following IV contrast as per pulmonary angiogram protocol with 3D reconstructions. A radiation dose optimization technique was used for this scan. IV Contrast dosage and agent: 100mL Isovue-370 contrast COMPARISON: portable chest 05/11/2020 FINDINGS: PULMONARY ARTERIES: Normal in caliber. No pulmonary embolism. AORTA AND GREAT VESSELS: No aortic aneurysm or dissection. HEART AND PERICARDIUM: Heart size is normal. No pericardial effusion. MEDIASTINUM AND CHARLEE: No mediastinal or hilar adenopathy. LUNGS, PLEURA AND LARGE AIRWAYS: Left upper lobe posterior segment calcified granuloma. No suspicious lesion. No pulmonary infiltrate or pleural effusion. No pneumothorax. BONES: No acute osseous abnormality. UPPER ABDOMEN: No acute pathology. CT/CTA Chest W/WO Contrast IMPRESSION: Negative exam. No PE, thoracic aortic dissection, or acute chest disease identified. Individualized dose optimization techniques were used for this CT. at 0612 Reported and signed by: Jaison Foster MD Electronically Signed: Jaison Foster, at 6:11 EDT Tel , Service support ,
[2020-05-12 07:00] VITALS: PULSE 68
[2020-05-12 07:50] VITALS: O2SAT 94
[2020-05-12 08:20] LABS: Partial Thromboplast Time 63.6 Seconds (24.1-36.2)
[2020-05-12 08:48] VITALS: BP 152/87; PULSE 73; RESP 18; TEMP 36.8; O2SAT 97
[2020-05-12] MEDS: TICAGRELOR 90 MG TABLET PO (08:58)
[2020-05-12] MEDS: Pantoprazole Sodium 20 MG Tablet PO (08:58)
[2020-05-12] MEDS: Losartan Potassium 100 MG Tablet PO (08:58)
[2020-05-12] MEDS: Pyridoxine HCl 100 MG Tablet PO (08:58)
[2020-05-12] MEDS: Carvedilol 3.125 MG TABLET PO (08:58)
[2020-05-12] MEDS: Aspirin E.C. 81 MG Tablet PO (08:58)
[2020-05-12] MEDS: Cyanocobalamin 500 MCG Tablet PO (08:59)
[2020-05-12] MEDS: Ezetimibe 10 MG Tablet PO (08:59)
[2020-05-12] MEDS: Acetaminophen 325 MG Tablet 650 MG PO (09:03)
--- NOTE | 2020-05-12 09:08 | PCM.DC ---
- Discharge Diagnoses Current Active Problems: Current Active and Chronic Problems (Last Reviewed 05/11/20 @ 06:[address] Melchor Stone MD) NSTEMI (non-ST elevated myocardial infarction) (Acute) Unstable angina (Acute) You will use the following diet at home:: Cardiac Your food should be the consistency of: Regular Discharge Activity: Return to Normal Activity Return to work on:: 05/15/20 Call your doctor if you observe: Shortness of breath, Chest pain Allergies/Adverse Reactions: Allergies Znuitwp-Hql-Plf Reductase Inhibitor Adverse Reaction (Severe, Verified 05/11/20 04:25) Myalgias Medications to take at Discharge Aspirin [Adult Low Dose Aspirin EC] 81 mg PO DAILY 01/24/16 Cyanocobalamin [Vitamin B12] 500 mcg PO BID 09/26/17 Krill Oil 500 mg PO DAILY 09/26/17 coenzyme Q10 100 mg capsule 100 mg PO QDAY 02/04/18 omeprazole 20 mg capsule,delayed release 20 mg PO DAILY 08/16/18 potassium 99 mg tablet 99 mg PO DAILY 08/16/18 nitroglycerin 0.4 mg sublingual tablet 0.4 mg SUBLINGUAL Q5M PRN #25 tab 01/27/19 ezetimibe 10 mg tablet 10 mg PO DAILY #30 tab 09/01/19 omega-3 fatty acids 1,000 mg capsule 1,000 mg PO DAILY 09/01/19 pyridoxine (vitamin B6) 100 mg tablet 100 mg PO BID 09/01/19 turmeric 400 mg capsule 667 mg PO BID cap 09/01/19 losartan 100 mg tablet 100 mg PO DAILY #30 tab 10/05/19 carvedilol 3.125 mg tablet 3.125 mg PO BID #180 tab 01/10/20 Ticagrelor [Brilinta] 90 mg PO BID #60 tab 05/12/20 The following prescriptions were given: Ticagrelor [Brilinta] 90 mg PO BID #60 tab Transmission Status: Pending to [id number] Primary Care Physician: Roney De La Garza MD [Primary Care Provider] - Within 2 Weeks Test Results: Test results from this visit will be discussed in further detail at your follow-up appointment, if applicable. Please Follow Up With: Alexandru Milligan MD When: 1 month Proposed Discharge Date: 05/12/20
--- NOTE | 2020-05-12 09:10 | PCM.DC.SUM ---
Discharge Date and Diagnosis - Problem List Patient Problems: Active and Suspected Problems (Last Reviewed 05/11/20 @ 06:[address] Melchor Stone MD) NSTEMI (non-ST elevated myocardial infarction) (Acute) Unstable angina (Acute) Date of Admission: 05/11/20 Date of Discharge: 05/12/20 - Primary Discharge Diagnosis Acute Problems: Active Problems (Last Reviewed 05/11/20 @ 06:[address] Melchor Stone MD) NSTEMI (non-ST elevated myocardial infarction) (Acute) Unstable angina (Acute) - Secondary Discharge Diagnosis Chronic Problems: Chronic Problems (Last Reviewed 05/11/20 @ 06:[address] Melchor Stone MD) Palpitations (Chronic) Essential hypertension (Chronic) History of myocardial infarction (Chronic) Presence of stent in coronary artery (Chronic ~12/25/15) PCI/LETICIA to LAD 12/25/15 Long-term use of high-risk medication (Chronic) Hyperlipidemia (Chronic) Ischemic cardiomyopathy (Chronic) Atherosclerotic heart disease of [place] coronary artery without angina pectoris (Chronic) PCI/LETICIA to LAD 12/25/15 Hospital Course and Treatment Imaging Results: 05/12/20 05:55 CTA Chest W/WO Contrast [CT] AM (NON MEDS) Clinical Impression(s) from Imaging Studies Chest X-Ray 05/11/20 04:49 IMPRESSION: Degenerative changes, as described above. No demonstrated acute cardiopulmonary process. Electronically Signed: Ellie Espinoza, at 5:22 EDT Tel , Service support , Chest CTA 05/12/20 05:55 IMPRESSION: Negative exam. No PE, thoracic aortic dissection, or acute chest disease identified. Individualized dose optimization techniques were used for this CT. at 0612 Reported and signed by: Jaison Foster MD Electronically Signed: Jaison Foster, at 6:11 EDT Tel , Service support , Korin, cardiology Operations: None Procedures: Cardiac catheterization - CAD as described with no clear culprit lesion for patient's elevated Troponin. EF is 50% with apical hypokinesis which is an old finding seen in his last echo from 09/28. No significant or MR. Patient's elevated T-I in the setting of OUMAR 2 flow in the LAD could be due to a thrombus in the LAD that has embolized to the microvasculature. PE could also be considered in the differential diagnosis Summary of Care Provided: The patient is a 64 year old M with chest pain. It is peaked at 9.1. Patient was started on heparin drip as well as a nitroglycerin drip. Symptoms resolved. 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 Radiology is recommending medical management with ticagrelor. Possibilities could have been a thrombus that because initial large clot then embolized further this patient is having no symptoms at this time versus vasospasm. Patient denies any illicit drug use. Patient did have the femoral approach with his heart catheterization and advised to hold off on going back to work for the next 48 hours. [] Patient Problems: Active and Suspected Problems (Last Reviewed 05/11/20 @ 06:[address] Melchor Stone MD) NSTEMI (non-ST elevated myocardial infarction) (Acute) Unstable angina (Acute) - Physical Exam Vitals/I&O's: Vital Signs Temp Pulse Resp BP Pulse Ox 36.8 C 73 18 152/87 H 97 05/12/20 08:48 05/12/20 08:48 05/12/20 08:48 05/12/20 08:48 05/12/20 08:48 Oxygen Flow Rate (L/min) 2 Oxygen Delivery Method Room Air Weight: 96.7 kg Body Mass Index (BMI) 29.0 Intake and Output for Last 24 Hours 05/10/20 05/11/20 05/12/20 23:59 23:59 23:59 Intake Total 1554.93 / 1554.93 128.60 / 128.60 Output Total 1750 / 1750 Balance -195.07 / -195.07 128.60 / 128.60 General: Alert, No apparent distress HEENT: Atraumatic, Normocephalic Oral: Moist Mucosa, No Gingival or Mucosal Lesions/ Ulcerations Neck: No Nodes, Thyroid Normal Size and Texture Lungs: Clear to auscultation, Normal air movement, No rhonchi, No wheeze, No rales Cardiovascular: Regular rate, Regular Rhythm, Normal S1, Normal S2, No murmurs Abdomen: Bowel Sounds Present, Soft, Non Tender, Non-Distended, No Hepato-splenomegaly Extremities: No edema, No Calf Tenderness Psych/Mental Status: Normal Affect, Appropriate Laboratory Results 05/11/20 11:00: Troponin I 9.100 H* 05/11/20 20:00: APTT 60.1 H 05/12/20 02:03: WBC 6.3, RBC 4.47 L, Hgb 14.0, Hct 40.4, MCV 90.4, MCH 31.3, MCHC 34.7, RDW Std Deviation 41.4, RDW Coeff of Katiana 12.7, Plt Count 167, MPV 10.8, Immature Gran % (Auto) 0.200, Neut % (Auto) 65.1, Lymph % (Auto) 24.4, Harney % (Auto) 7.7, Eos % (Auto) 2.1, Baso % (Auto) 0.5, Absolute Neuts (auto) 4.1, Absolute Lymphs (auto) 1.53, Nucleated RBC % 0 05/12/20 02:03: Sodium 142, Potassium 3.7, Chloride 110 H, Carbon Dioxide 26.0, Anion Gap 6, BUN 16, Creatinine 1.01, Estim Creat Clear Calc 78.97, Est GFR (MDRD) Af Amer 95, Est GFR (MDRD) Non-Af 78, BUN/Creatinine Ratio 15.8, Glucose 122 H, Calcium 8.9, Total Bilirubin 0.90, AST 83 H, ALT 50, Alkaline Phosphatase 46, Total Protein 6.6, Albumin 3.4, Globulin 3.2, Albumin/Globulin Ratio 1.1 05/12/20 02:03: APTT 66.2 H 05/12/20 07:55: APTT 63.6 H Current Medications Acetaminophen (Tylenol) 650 mg PO Q6H PRN PRN PRN Reason: Pain Score 1-10/Temp > 100.7 F Last Admin: 05/12/20 09:03 Dose: 650 mg Documented by: Aspirin (Ecotrin) 81 mg PO DAILY@0800 GIANFRNACO Last Admin: 05/12/20 08:58 Dose: 81 mg Documented by: Atropine Sulfate () 0.5 mg IV UD PRN PRN Reason: HR <50 bpm Carvedilol (Coreg) 3.125 mg PO BID [facility] Last Admin: 05/12/20 08:58 Dose: 3.125 mg Documented by: Cyanocobalamin (Vitamin B12) 500 mcg PO BID [facility] Last Admin: 05/12/20 08:59 Dose: 500 mcg Documented by: Ezetimibe (Zetia) 10 mg PO DAILY [facility] Last Admin: 05/12/20 08:59 Dose: 10 mg Documented by: Heparin Sodium (Porcine) (Heparin Na) 0 unit IV UD PRN; Protocol PRN Reason: dose adjustment Heparin Sodium/Sodium Chloride () 25,000 unit in 250 mls @ 14 mls/hr IV .[id number] [facility]; Protocol Last Titration: 05/12/20 08:51 Dose: 1,400 units/hr, 14 mls/hr Documented by: Labetalol HCl (Trandate) 5 mg IV X1 PRN PRN Reason: SBP >160 when pulling sheath Stop: 05/13/20 13:53 Losartan Potassium (Cozaar) 100 mg PO DAILY [facility] Last Admin: 05/12/20 08:58 Dose: 100 mg Documented by: Morphine Sulfate () 2 mg IV Q3H PRN PRN PRN Reason: Pain Score 6-10/10 Ondansetron HCl (Zofran) 4 mg IV Q8H PRN PRN PRN Reason: NAUSEA/VOMITING Pantoprazole Sodium (Protonix) 20 mg PO DAILY [facility] Last Admin: 05/12/20 08:58 Dose: 20 mg Documented by: Pyridoxine HCl (Vitamin B-6) 100 mg PO BID [facility] Last Admin: 05/12/20 08:58 Dose: 100 mg Documented by: Sodium Chloride () 10 - 40 ml IV UD PRN PRN Reason: SALINE FLUSH Sodium Chloride () 500 ml IV BOLUS PRN PRN Reason: VASO-VAGAL PROTOCOL Ticagrelor (Brilinta) 90 mg PO BID [facility] Last Admin: 05/12/20 08:58 Dose: 90 mg Documented by: Discharge Diet: Low fat/ Low Cholesterol Discharge Activity: Return to Normal Activity Return to work on:: 05/15/20 Call your doctor if you observe: Shortness of breath, Chest pain Home Medications: Medications to take at Discharge Aspirin [Adult Low Dose Aspirin EC] 81 mg PO DAILY 01/24/16 Cyanocobalamin [Vitamin B12] 500 mcg PO BID 09/26/17 Krill Oil 500 mg PO DAILY 09/26/17 coenzyme Q10 100 mg capsule 100 mg PO QDAY 02/04/18 omeprazole 20 mg capsule,delayed release 20 mg PO DAILY 08/16/18 potassium 99 mg tablet 99 mg PO DAILY 08/16/18 nitroglycerin 0.4 mg sublingual tablet 0.4 mg SUBLINGUAL Q5M PRN #25 tab 01/27/19 ezetimibe 10 mg tablet 10 mg PO DAILY #30 tab 09/01/19 omega-3 fatty acids 1,000 mg capsule 1,000 mg PO DAILY 09/01/19 pyridoxine (vitamin B6) 100 mg tablet 100 mg PO BID 09/01/19 turmeric 400 mg capsule 667 mg PO BID cap 09/01/19 losartan 100 mg tablet 100 mg PO DAILY #30 tab 10/05/19 carvedilol 3.125 mg tablet 3.125 mg PO BID #180 tab 01/10/20 Ticagrelor [Brilinta] 90 mg PO BID #60 tab 05/12/20 Following Prescriptions Were Given to Patient: Ticagrelor [Brilinta] 90 mg PO BID #60 tab Transmission Status: Pending to [id number] Primary Care Physician: Roney De La Garza MD [Primary Care Provider] - Within 2 Weeks Please Follow Up With: Alexandru Milligan MD When: 1 month Disposition: Home Minutes spent on discharge:: 32 Patient Condition:: Good Medical Necessity - Tobacco Use Smoking Status: Former smoker Tobacco Use: Chew Meaningful Use Info Meaningful Use Diagnoses (Choose all that apply): AMI - AMI/Post PCI/Angioplasty Aspirin given w/in 24hrs of arrival?: Yes ASA at discharge?: Yes Antiplatelet Therapy at Discharge:: Yes Statins at discharge?: No Reason statins not ordered:: Allergy Vitor/ARB at discharge?: Yes Beta Sonja at discharge?: Yes Done w/ Acute MS measure.: Yes Documented LVEF (%): 50 Inpatient E&M: [id number] Disch Hosp
--- NOTE | 2020-05-12 10:00 | EKG12_ITS ---
Test Reason : AM EKG Blood Pressure : / mmHG Vent. Rate : 062 BPM Atrial Rate : 062 BPM P-R Int : 212 ms QRS Dur : 090 ms QT Int : 408 ms P-R-T Axes : 026 -41 037 degrees QTc Int : 414 ms Sinus rhythm with 1st degree A-V block Left axis deviation Inferior infarct , age undetermined Anterior infarct , age undetermined T wave abnormality, consider lateral ischemia Abnormal ECG Confirmed by ALEJANDRA MARCELINO, [place] ([id number]), video news editor DEBRA GATES ([id number]) on 05/15/2020 10:18:37 AM Referred By: DR COLON Confirmed By:INDIANA ROBERTS MD
--- NOTE | 2020-05-13 07:19 | CRPHASE1 ---
Patient Communication Former Patient:: Phase I - 2016, Phase II - 2016 PHII Cardiac Rehab Discussed with Patient:: Yes Guide to Cardiac Rehab Given to Patient:: Yes Cardiac Rehab Facility Choice List Given to Patient:: Yes Choice Program [facility] CR PHII:: Communication Given to CR, Refer to [facility] Licensed Mental Health Professional:: Ryan Langley Refer Phase II Cardiac Rehab:: Yes Sessions:: 36 sessions - 3 days/wk, 12 weeks Choice Letter Given to Patient:: Yes Guide to Cardiac Rehab Given by ICU Staff Prior to Discharge: Yes Guide to Cardiac Rehab Mailed to Patient by CR Staff:: Yes Patient Contacted Post Discharge by CR Staff:: Yes PHII Cardiac Rehab Referral:: [facility] Risk Factors/Lifestyle Family History: Family History (Last Reviewed 05/11/20 @ 06:[address] Melchor Stone MD) Father CAD (coronary artery disease) Brother CAD (coronary artery disease) Brother CAD (coronary artery disease) Laboratory Values: Cardiac Rehab Phase I Labs Triglycerides 50 mg/dL (-199) 05/11/20 07:45 Cholesterol 144 mg/dL (200) 05/11/20 07:45 LDL Cholesterol 89 mg/dL (0-130) 05/11/20 07:45 HDL Cholesterol 45 mg/dL (40-) 05/11/20 07:45 Cardiac Rehabilitation Info Cardiac Rehabilitation Program Information: Cardiac Rehabilitation is important for patients like you who are recovering from a heart problem. Cardiac rehabilitation programs are recognized as integral to the continued care of the patient with coronary heart disease. The cardiac rehabilitation program is designed to optimize a patient's physical, psychological, and social functioning. Health medicare interviewer work in cardiac rehabilitation programs and assist you with getting the treatments you need to get stronger and healthier - like exercise, healthy eating habits, and medications. Cardiac rehabilitation has been show to help people with heart problems live longer and have better life enjoyment than people who do not go to cardiac rehabilitation. Please contact the Cardiac Rehabilitation Program at [facility] at in two weeks if you have not heard from them.
--- NOTE | 2020-05-13 07:20 | CRPH1.INSTRU ---
General Education CAD and cardiac anatomy and function:: Patient communicates acknowledgment - spoke with patient post-discahrge via telephone, booklet sent to mailing address. Explanation of diagnoses and procedures:: Patient communicates acknowledgment Sign/Symptoms of NV:: Patient communicates acknowledgment Antiplatelet therapy: Patient communicates acknowledgment Emergency procedures and activation of EMS: Patient communicates acknowledgment Compliance of all prescribed medications: Patient communicates acknowledgment Dyslipidemia Patient Dyslipidemia Risk Factors Are:: Total Cholesterol, Triglycerides, HDL, LDL Recommendations Include:: Lipid profile provided Dyslipidemia Response Code:: Patient communicates acknowledgment Hypertension Patient Hypertension Risk Factors Are:: No documented hx of HTN Recommendations Include:: Maintain BP <130/85, DASH dietary guidelines, Decrease/maintain normal body weight Hypertension:: Patient communicates acknowledgment Heart Disease Patient Heart Disease Risk Factors Are:: Family history of heart disease < 65 years old, Previous cardiac event Recommendations Include:: Educated family members of their risk, Educated family members of importance of prevention of heart disease Heart Disease Response Code:: Patient communicates acknowledgment
== END 2020-05-12 11:32 | disposition home or self-care (01) | DRG 281 ==
LOC: ED 05:30 → ICU 06:32 → PCU 16:43
PROVIDERS: Specialist; Admitting Provider Hospitalist; Emergency Provider Emergency Medicine; PCP Family Medicine
DX: I21.4 Non-ST elevation (NSTEMI) myocardial infarction (principal); I16.1 Hypertensive emergency; I25.110 Atherosclerotic heart disease of native coronary artery with unstable angina pectoris; Z23 Encounter for immunization; I10 Essential (primary) hypertension; E78.5 Hyperlipidemia, unspecified; K21.9 Gastro-esophageal reflux disease without esophagitis; I25.5 Ischemic cardiomyopathy; F10.20 Alcohol dependence, uncomplicated; I25.2 Old myocardial infarction; Z87.891 Personal history of nicotine dependence; Z95.5 Presence of coronary angioplasty implant and graft
CPT/HCPCS: 36415; 71045; 71275; 80048; 80053; 80061; 84484; 85025; 85379; 85610; 85730; 93005; 93458; 99152; 99153; 99285; G0008; J7030; J7040; Q9967; 90686; A4216; C1760; C1894

== ENCOUNTER → 2020-05-24 12:57 | Outpatient (CLI) | payer MEDICARE, BC, SELFPAY ==
[2020-05-11 07:39] VITALS: BMI 29.0
--- NOTE | 2020-05-24 13:04 | CR.HP_ITS ---
CR - History & Physical - General Arrival date:: 05/24/20 Arrival time:: 13:05 Date of Referral:: 05/13/20 Date of CR Evaluation:: 05/24/20 Referring Physician: Dr. Alexandru Milligan Primary Diagnosis: PTCA - History of Present Cardiac Event Onset Date: Enter Onset Date of cardiac illnesses in Comment field below PTCA or coronary stenting:: Yes - 05/11/20 - Medications Home Medications: Ambulatory Orders Medication Instructions Recorded Aspirin [Adult Low Dose Aspirin EC] 81 mg PO DAILY 01/24/16 Cyanocobalamin [Vitamin B12] 500 mcg PO BID 09/26/17 Krill Oil 500 mg PO DAILY 09/26/17 coenzyme Q10 100 mg capsule 100 mg PO QDAY 02/04/18 omeprazole 20 mg capsule,delayed 20 mg PO DAILY 08/16/18 release potassium 99 mg tablet 99 mg PO DAILY 08/16/18 nitroglycerin 0.4 mg sublingual 0.4 mg SUBLINGUAL Q5M PRN #25 tab 01/27/19 tablet ezetimibe 10 mg tablet 10 mg PO DAILY #30 tab 09/01/19 omega-3 fatty acids 1,000 mg 1,000 mg PO DAILY 09/01/19 capsule pyridoxine (vitamin B6) 100 mg 100 mg PO BID 09/01/19 tablet turmeric 400 mg capsule 667 mg PO BID cap 09/01/19 losartan 100 mg tablet 100 mg PO DAILY #30 tab 10/05/19 carvedilol 3.125 mg tablet 3.125 mg PO BID #180 tab 01/10/20 Ticagrelor [Brilinta] 90 mg PO BID #60 tab 05/12/20 - Allergies Allergies/Adverse Reactions: Allergies Bxlgbmm-Vxn-Shn Reductase Inhibitor Adverse Reaction (Severe, Verified 05/11/20 04:25) Myalgias - Sleep Disorder Evaluation Hx of Sleep Apnea: No Do you snore loudly (louder than talking or can be heard through closed doors)?: No Do you often feel tired/ fatigued/ sleepy during daytime?: No Has anyone observed you stop breathing during sleep?: No History of Hypertension (for STOP score): Yes STOP Results: Negative Advanced Directives - Advanced Directives Power of Laundry Supervisor: Yes Living Will: Yes Advance Directives Information Provided: Yes Advance Directives on File: Yes DNR Order?:: No Past Medical History - Covid-19 Screening Fever: No Unexplained muscle aches: No Current respiratory symptoms: No Upper respiratory infections symptoms: No Gastro-intestinal symptoms: No Ach-Hjkn-Oeraav symptoms: No Has tested positive for COVID-19 in last 30 days: No Had contact w/person w/symptoms or Covid-19 (+) last 14 days: No Has High Risk Exposures ID'd by Health dept/Inf Control team: No 65 years or older:: No Lives in Assisted Living facility:: No Has a chronic lung disease or moderate to severe asthma:: No Has a serious heart condition:: Yes Immunocompromised:: No Severely obese (Body Mass Index of 40 or higher):: No Diabetic:: No Has chronic kidney disease undergoing dialysis:: No Has liver disease:: No - Past Medical Illness Medical History: Past Medical History (Last Updated 05/13/20 @ 11:20 by Blossom Bravo) Essential hypertension (Chronic) I10 History of myocardial infarction (Chronic) I25.2 Long-term use of high-risk medication (Chronic) Z79.899 Hyperlipidemia (Chronic) E78.5 Ischemic cardiomyopathy (Chronic) I25.5 Atherosclerotic heart disease of [place] coronary artery without angina pectoris (Chronic) I25.10 PCI/LETICIA to LAD 12/25/15 Atypical chest pain (Inactive) R07.89 Spinal stenosis M48.00 GERD (gastroesophageal reflux disease) K21.9 History of left heart catheterization (LHC) Onset Date: ~05/11/20 Z98.890 LEFT MAIN: No significant disease noted; LEFT ANTERIOR DESCENDING ARTERY: Mild luminal irregularities, Previously placed stent is patent.There is OUMAR 2 flow in the LAD, DIAGONAL 1: Ostial - 40 % Stenosis, CIRCUMFLEX ARTERY: PROX CIRC: 20 % Stenosis; RIGHT CORONARY ARTERY:MID RCA: 30 % Stenosis, DISTAL RCA: 30 % Stenosis RT PLV: 50 % Stenosis per cath 05/11/20 Chest pressure (Inactive) R07.89 - Past Surgical History Surgical History: Past Surgical History (Last Reviewed 05/11/20 @ 06:[address] Melchor Stone MD) Presence of stent in coronary artery (Chronic) Onset Date: ~12/25/15 Z95.5 PCI/LETICIA to LAD 12/25/15 Postsurgical percutaneous transluminal coronary angioplasty (PTCA) status Onset Date: ~12/15/15 Z98.61 PCI/LETICIA to LAD 12/25/15 History of back surgery Z98.890 History of tonsillectomy Z90.89 Hx of appendectomy Z90.49 Surgical History: appendectomy, tonsillectomy - Family History Summary Family History: Family History (Last Reviewed 05/11/20 @ 06:[address] 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 Left click = Reports ([place]) Review of Present Symptoms: Reports: Shortness of Breath with Exertion, Dizziness/Lightheadedness, Appetite - Normal, Appetite - Special Diet, Sleep - Normal. Denies: Shortness of Breath at Rest, PVD, Operative Discomfort, Angina, Wound Healing, Fatigue, Heart Arrhythmia/Irregularities, Sexual Changes - Pain Is Patient Pain Free?: No Pain Location: none, other - knees Pain Level: 5/10 Risk Factor Assessment - Vital Signs Pulse Ox: 97 - Pulse Pulse Rate: 88 Pulse Rhythm: Regular - Hypertension Blood Pressure Sitting - Left Arm: 132/78 - Stress Stress: Recent, Home/Family - Diabetes Nutrition Referral for Diabetes: No - Obesity Height: 6 ft Weight:: 97.432 kg Weight in Pounds: 214.8 lbs Body Mass Index (BMI): 29.1 Nutritional Referral for Obesity: No - Physical Inactivity Physical Inactivity: Physically demanding job - Risk Stratification Risk Guidelines: Moderate Risk: Risk Factor for Smoking, Risk Factor for Dyslipidemia, Risk Factor for Diabetes, Risk Factor for Obesity, Risk Factor for Sedentary Lifestyle, Risk Factor for Depression, Highest Risk: Risk Factor for Hypertension - For Smoking Smoking Risk Guidelines: Smoking Low Risk: None or quit greater than 6 months ago. Smoking Moderate Risk: Smoker or quit 6 months or less ago. Smoking High Risk: Smoker - For Dyslipidemia Dyslipidemia Risk Guidelines: Low Risk: Moderate Risk: High Risk: 15-25% fat 25.1-29% fat >/= 30% fat. <7% sat fat 7-9% sat fat >9% sat fat. <150 mg chol 150-299 mg chol >/= 300 mg chol. LDL <100 LDL 100-129 LDL >/= 130. Chol/HDL ratio <5.0 Chol/HDL ratio 5.0-6.0 Chol/HDL ratio >6.0. Triglycerides <100 Triglycerides 100- 149 Triglycerides >/= 150 - For Diabetes Mellitus Diabetes Risk Guidelines: Diabetes Low Risk: HgA1c <6.5% and/or FBG <120. Diabetes Moderate Risk: HgA1c 6.6-7.9% and/or FBG 120-180. Diabetes High Risk: HgA1c >/= 8% and/or FBG >180 - For Obesity/Overweight Obesity/Overweight Risk Guidelines: Obesity Low Risk: BMI <25.0. Obesity Moderate Risk: BMI 25-29.9. Obesity High Risk: BMI >/= 30.0 - For Hypertension Hypertension Risk Guidelines: Hypertension Low Risk: Systolic <120 and Diastolic <80. Hypertension Moderate Risk: Systolic 120-139 and Diastolic 80-89. Hypertension High Risk: Systolic >/= 140 and Diastolic >/= 90 - For Sedentary Lifestyle Sedentary Lifestyle Risk Guidelines: Sedentary Lifestyle Low Risk: >/= 1,500 kcal/week. Sedentary Lifestyle Moderate Risk: 700-1,499 kcal/week. Sedentary Lifestyle High Risk: < 700 kcal/week - For Depression Depression Risk Guidelines: Depression Low Risk: Not clinically depressed. Depression Moderate Risk: Mildly depressed. Depression High Risk: Clinically depressed - Family History Family History: Family History (Last Reviewed 05/11/20 @ 06:[address] Melchor Stone MD) Father CAD (coronary artery disease) Brother CAD (coronary artery disease) Brother CAD (coronary artery disease) Motivation - Motivation to Participate On a scale of 1 to 10, how prepared are you to commit to attending program?: 10 What do you see as barriers to successfully being able to complete the program?: work What do you see as the benefits of succesfully completing the program? In other words, what do you hope to get out of participating in the program?: improved health Are there issues you are dealing with that will interfere with completing the program?: none Do you have a spouse or signficant other, family or friends who will help support you to complete the program?: spouse
--- NOTE | 2020-05-24 13:04 | CR.ITP_ITS ---
Diagnosis - General Information Admitting Diagnosis: PTCA Personal Learning Style:: Audio/Visual, Demonstration, Group, Individual Preference, Written Gave educational material for:: Treating Heart Disease, Emotions & Heart Disease, Stress Management & Relaxation, Sleep Disorders & Heart Disease, How The Heart Works, What it means to have Heart Disease, How Coronary Artery Disease is Diagnosed, Heart Procedures, What Heart Medications Do, Risk Factors & Modifications, Living an Active Life, Nutrition - Education/Goals Cardiac Rehabilitation Goals: 1. Maintain the individual as the primary focus of care. 2. To improve the patient's quality of life. 3. Identification of cardiac risk factors and provide cardiac risk factor management. 4. Enhance the psychosocial status of the patient. 5. Reconditioning enough to allow the patient to resume customary activities. 6. Control symptoms of cardiac disease Personal Goals: Initial Assessment: Improve management of stress and emotions, Improve energy level, Participate in home exercise program, Get back to work, or to resume activities faster, Improve muscle strength and endurance, Improve diet and eating habits (eat healthier), Control risk factors (learn risk factor modification) Scale for measuring improvement of personal goals: Enter appropriate number in Comments. 2 = Unchanged. 3 = Slightly Better. 4 = Moderate Improvement. 5 = Met my Goal - Diagnosis & Disease Process Outcomes/Goals: Pt IDs own risk factors & lifestyle modifications by Session 10, Verbalizes symptoms of angina & response by session 3., Pt independently manages, Other Additional Outcomes/Goals: Plan/Interventions: Assist Pt to ID & engage in lifestyle modification to reduce CVD risk, Instruct on individual risk factors, Review symptoms of angina & emergency actions, Review secondary diagnosis & identify educational needs., Other see comment 30 day Reassessments:: Not Met 30 day Reassessments:: Not Met 30 day Reassessments:: Not Met 30 day Reassessments:: Not Met Final Reassessments:: Not Met - Safety Referral to Physical Therapy: No Referral to [facility] Case Management: No Fall Risk Assessed:: Yes Assistive Devices:: None Exercise - Initial Assessment - Visit Date of Eval: 05/24/20 - initial eval Mets: Pre-: >7 METS for 30 minutes by discharge - Physician Prescribed Exercise Modalities: Treadmill, Biodyne, Rower, Airdyne, NuStep, SciFit Frequency: 3x/week for 12 weeks [36 sessions] Intensity: 60-80% of age predicted maximum heart rate reserve Current METSs:: 3.5 Target Heart Rate:: 100-130 - Outcomes & Goals Goals:: Verbalizes understanding of THR, RPE & goal METS by session 6, Documents in home exercise log/reports 30 min aerobic 5 day/wk by DC, Demonstrates accurate pulse taking by DC, Other additional outcome/goals: see below - Intervention & Plan Exercise Program Goals: Instruct on personal THR & RPE, Instruct on MET level & personal MET goal, Show patient to take own pulse /validate performance until accurate, Instruct on home exercise, Other additional plan/int - Physical Activity Home Exercise Physical Activity - Home Exercise: Safe Exercise, Warm-up, Self-monitoring, Cool-Down, Home Exercise > 30 min Daily, Sitting Time <3 hours/daily - Outcomes & Goals Outcomes/Goals: Demonstrates correct Warm-up/exercise Cool-Down (S3) if = 2.5 METs, Verbalizes symptoms of exercise intolerance by Session 3 (S3), Demonstrate safe equipment use (S3) & follows exercise prescrition (6), Other: See below - Intervention & Plan Plan/Intervention: Instruct warm-up & cool-down if exercising at > 2 METs, Instruct on symptoms of exercise intolerance & actions to take, Instruct & monitor on saf, Assess intial functional capacity & safety risk, Other See below Nutrition - Initial Assessment - Program Goals Nutrition Program Goals: LDL <100 optimal. 100 - 129 Near optimal. 130 - 159 Borderline High. 160 - 189 High. Total Cholesterol <200 desirable. 200 - 239 Borderline High. >/= 240 High. HDL < 40 Low >/=60 High. Triglycerides <150 desirable. <199 optimal. VlDL 5 - 40. HgbA1C <7%. BMI <25 Patient has diagnosis of Hyperlipidemia (ICD E78)?: Yes - Visit Date of Assessment:: 05/24/20 - initial eval - Cholesterol/Lipids Determine presence & major risk factors that modify LDL goal: Cigarette smoking, Hypertension or hypertensive medication, Low HDL cholesterol <40 mg/dL*, Family history of premature CHD in Male < 55 years: female <65 yearsFa, Age men > 45 years; women >/= 55 years Outcomes/Goals: Pt IDs own risk factors & lifestyle modifications by Session 10, Verbalizes symptoms of angina & response by session 3., Pt independently manages, Other Additional Outcomes/Goals: Intervention/Plan: Advocate for lipid panel cholesterol medication if applicable, Instruct on personal lipid levels & lipid goals/NCEP guidelines, Instruct on cholesterol, Other additional plan/int Referral to dietitian:: No - Diabetes (Other Core Measures) Diabetes Type: Not Applicable - Weight Mgt (Other Care) Height: 6 ft Weight:: 97.432 kg BMI: 29.1 Outcomes/Goals: Pt sets, maintains & shows weight loss goal & trend during rehab, Other additional outcomes/goals Intervention/Plan: Instruct on ideal BMI & set weight loss goal w/patient, Assist pt to ID & incorporate diet changes for weight loss by S9, Refer to Structured Weight Loss program as appropriate, Encourage goal of using 250- 300dcal per session for weight loss, Other additional plan/interventions - Healthy Eating Habits Will attend diet classes:: Yes Outcomes/Goals:: Consume diet rich in vegs,fruits,whole grain/high fiber,fish,lean meat, Limit sat/trans fats,cholesterol & added salts & sugars, Other additional outcome/goals: Intervention/Plan:: Assess current eating habits, Other Additional plan/interv entions - Education Gave educational materials for:: Signs & symptoms of hypoglycemia, Signs & symptoms of hyperglycemia, Relate diabetes to coronary artery disease, Healthy eating Medical - Initial Assessment - Visit Date of Eval: 05/24/20 - initial eval - Medication Compliance Preventative Medication(s):: Aspirin, Statin/lipid, Beta estella H/O mental health issues: depression, anxiety, or addiction?: No Doesn?t believe in the benefits of treatment?: No Believes medications are unnecessary or harmful?: No Has a concern about medication side effects?: No Expresses concern over the cost of medications?: No Outcomes/Goals: Verbalizes medications,desired effect & common side effects @ DC, Pt self-reports following medication regimen, Keeps card in wallet w/medications listed by DC, Other additional outcome/goals: Interventions/plans: Instruct on medication effects & side effects, Review medication list w/patient every two weeks, Instruct importance of taking meds as ordered & assist problem solving, Other additional - Tobacco Use Tobacco Use: Non-smoker How long ago did you quit using tobacco products?: Greater than or equal to 6 months ago - Hypertension [place] [employer] Hypertension Guidelines: [place] [employer] Hypertension Guidelines. Normal BP Less than 120/80. Elevated BP 120/80. Hypertension Stage 1: BP 130-139/80-89. Hypertesnion Stage 2: BP 140 or higher/90 or higher. Hypertension Crisis: BP higher than 180/120 Patient Health Questionnaire Initial Assessment 1. Little interest or pleasure in doing things: Not at all 2. Feeling down, depressed, or hopeless: Several days 3. Trouble falling or staying asleep, or sleeping too much: Not at all 4. Feeling tired or having little energy: More than half the days 5. Poor appetite or overeating: Not at all 6. Feeling bad about yourself -- or that you are a failure or have let yourself or your family down: Not at all 7. Trouble concentrating on things, such as reading the newspaper or watching television: Not at all 8. Moving or speaking so slowly that other people could have noticed. Or the opposite - being so fidgety or restless that you have been moving around a lot more than usual: Not at all 9. Thoughts that you would be better off , or of hurting yourself in some way: Not at all How difficult have these problems made it for you to do your work, take care of things at home, or get along with other people?: Not difficult at all Total Score: 3 RASHMI-Q SV Test - Statements CAD is a disease of the arteries in the heart: False Examples of risk factors for heart disease: True Angina is chest pain or discomfort: True The benefits of resistance training include: True Eating more meat and dairy products: False Anti-platelet medications such as aspirin are important: True The only effective way to manage stress: False An exercise warm-up slowly increases heart rate: True Prepared, processed foods usually have high sodium: True Depression is common after a heart attack: True The statin medications lower cholesterol: True To control blood pressure, lower the amount of sodium: True If someone gets chest discomfort during walking: False Transfats are partially hydrogenated vegetable oils: True Sleep apnea that is not treated increases the risk: False To control cholesterol, one should become a vegetarian: False Someone knows if he/she is exercising at the right level: True Diabetes cannot be prevented with exercise & health eating: False Stress is a large risk for heart attack: True A diet that can help lower blood pressure is rich in: True - Total Score Total Correct Responses: 20 Self-Efficacy Initial Assessment We would like to know how confident you are in doing certain activities. Please select your confidence level for:: Select your confidence level for the following using the scale 1-10 where 1 is not at all confident and 10 is totally confident. Your score is the average of all 6 responses. Fatigue: How confident are you that you can keep the fatigue caused by your disease from interfering with the things you want to do? Select Number: 8 Physical Discomfort or Pain: How confident are you that you can keep the p hysical discomfort or pain of your disease from interfering with the things you want to do? Select Number: 8 Emotional Distress: How confident are you that you can keep the emotional distress caused by your disease from interfering with the things you want to do? Select Number: 10 Other Symptoms or Health Problems: How confident are you that you can keep other symptoms or health problems from interfering with the things you want to do? Select Number: 9 Different Tasks and Activities: How confident are you that you can do the different tasks and activities needed to manage your health condition so as to reduce your need to see a doctor? Select Number: 9 Medication: How confident are you that you can do things other than just taking medication to reduce how much your illness affects your everyday life? Select Number: 10 Total Score:: 9 Nutrition Survey - Nutrition Survey Instructions Scoring Instructions: Scoring is as follows: Yes = 1 points. No = 0 point. Patient score that is >/=12 is considered to be at potential nutritional risk and could benefit from a referral to a registered dietitian. - Nutrition Survey Initial Have you lost >10 lbs over the past 2 months without trying?: No Are you following a special diet at home for diabetes, low fat, or low salt?: Yes Are you interested in meeting with a dietitian for help understanding your diet?: No Do you eat less than 3 meals a day?: Yes Do you eat fatty meats (collazo, sausage, ribs, etc), fried foods, desserts, large amounts of salad dressings, margarine, butter, or cheese most days?: No Do you have food allergies? [Enter types in comment field]: No Do you eat in restaurants more than 3 times a week?: No Do you season food with salt, seasoning salt, or garlic salt?: No Do you used canned, boxed, frozen meals, or soups, seasoning packets?: No Total Score:: 2
[2020-05-24 14:15] VITALS: BP 132/78; PULSE 88; O2SAT 97; BMI 29.1
[2020-05-24 14:21] VITALS: BMI 29.1
== END ==
PROVIDERS: PCP Family Medicine; Referring Provider Internal Medicine Cardiovascular Disease; Visit Provider Internal Medicine Cardiovascular Disease
DX: I21.4 Non-ST elevation (NSTEMI) myocardial infarction (principal); I25.10 Atherosclerotic heart disease of native coronary artery without angina pectoris; I25.5 Ischemic cardiomyopathy; Z95.5 Presence of coronary angioplasty implant and graft

== ENCOUNTER 2020-06-07 15:15 | Outpatient (RCR) | payer MEDICARE, BC, SELFPAY ==
[2020-05-24 14:15] VITALS: BMI 29.1
[2020-05-24 14:21] VITALS: BMI 29.1
== END 2020-06-08 23:59 ==
LOC: CR 15:15
PROVIDERS: PCP Family Medicine; Referring Provider Internal Medicine Cardiovascular Disease; Visit Provider Internal Medicine Cardiovascular Disease
DX: I25.110 Atherosclerotic heart disease of native coronary artery with unstable angina pectoris (principal); I25.5 Ischemic cardiomyopathy; Z95.5 Presence of coronary angioplasty implant and graft; I25.2 Old myocardial infarction
CPT/HCPCS: 93798

== ENCOUNTER 2020-07-08 15:15 | Outpatient (RCR) | payer MEDICARE, BC, SELFPAY ==
[2020-05-24 14:15] VITALS: BMI 29.1
[2020-05-24 14:21] VITALS: BMI 29.1
--- NOTE | 2020-06-24 08:28 | CR.ITP_ITS ---
Exercise - 30-day Assessment - Visit Date of Eval: 06/24/20 Session #:: 11 - Physician Prescribed Exercise Modalities: Trish Weldon Frequency: 3x/week for 12 weeks [36 sessions] Intensity: 60-80% of age predicted maximum heart rate reserve Current METSs:: 6.5 increased from 3.5 Target Heart Rate:: 100-130 Current RPE:: 11-15 Maximum Excercise HR:: 136 Resting Blood Pressure: 140/72 Maximum Exercise Blood Pressure: 164/78 EKG Type: NSR to sinus tachycardia with a rare PAC - Outcomes & Goals Goals:: Verbalizes understanding of THR, RPE & goal METS by session 6, Documents in home exercise log/reports 30 min aerobic 5 day/wk by DC, Demonstrates accurate pulse taking by DC - Intervention & Plan Exercise Program Goals: Instruct on personal THR & RPE, Instruct on MET level & personal MET goal, Show patient to take own pulse /validate performance until accurate, Instruct on home exercise - 30-day Reassessments 30 day Reassessments:: Progressing - Physical Activity Home Exercise Physical Activity - Home Exercise: Safe Exercise, Warm-up, Self-monitoring, Cool-Down, Home Exercise > 30 min Daily, Sitting Time <3 hours/daily - Outcomes & Goals Outcomes/Goals: Demonstrates correct Warm-up/exercise Cool-Down (S3) if = 2.5 METs, Verbalizes symptoms of exercise intolerance by Session 3 (S3), Demonstrate safe equipment use (S3) & follows exercise prescrition (6) - Intervention & Plan Plan/Intervention: Instruct warm-up & cool-down if exercising at > 2 METs, Instruct on symptoms of exercise intolerance & actions to take, Instruct & monitor on saf, Assess intial functional capacity & safety risk - 30-day Reassessments 30 day Reassessments:: Progressing Nutrition - 30-Day Assessment - Program Goals Nutrition Program Goals: LDL <100 optimal. 100 - 129 Near optimal. 130 - 159 Borderline High. 160 - 189 High. Total Cholesterol <200 desirable. 200 - 239 Borderline High. >/= 240 High. HDL < 40 Low >/=60 High. Triglycerides <150 desirable. <199 optimal. VlDL 5 - 40. HgbA1C <7%. BMI <25 Patient has diagnosis of Hyperlipidemia (ICD E78)?: Yes - Visit Date of Assessment:: 06/24/20 Session #:: 11 - no recent labs available - Cholesterol/Lipids Determine presence & major risk factors that modify LDL goal: Hypertension or hypertensive medication, Family history of premature CHD in Male < 55 years: female <65 yearsFa, Age men > 45 years; women >/= 55 years Outcomes/Goals: Pt IDs own risk factors & lifestyle modifications by Session 10, Verbalizes symptoms of angina & response by session 3., Pt independently manages Intervention/Plan: Instruct on personal lipid levels & lipid goals/NCEP guidelines, Instruct on cholesterol Referral to dietitian:: Yes 30-day Reassessments:: Progressing - Diabetes (Other Core Measures) Diabetes Type: Not Applicable - Weight Mgt (Other Care) Height: 6 ft Weight:: 206 lb BMI: 27.9 Diagnosis Overweight/Obesity BMI> 30% ICD-10 E66: No Diagnosis High BMI/Morbid Obesity BMI> 35% ICD-10 Z68: No Outcomes/Goals: Pt sets, maintains & shows weight loss goal & trend during rehab Intervention/Plan: Instruct on ideal BMI & set weight loss goal w/patient, Assist pt to ID & incorporate diet changes for weight loss by S9, Encourage goal of using 250-300dcal per session for weight loss 30 day Reassessments:: Progressing - Healthy Eating Habits Outcomes/Goals:: Consume diet rich in vegs,fruits,whole grain/high fiber,f harshad,lean meat, Limit sat/trans fats,cholesterol & added salts & sugars Intervention/Plan:: Assess current eating habits 30-day Reassessments:: Progressing Medical- 30-Day Assessment - Visit Date of Eval: 06/24/20 Session #:: 11 - Medication Compliance Preventative Medication(s):: Aspirin, Ticagrelor/P2Y12 inhibitor, Statin/lipid, Beta estella H/O mental health issues: depression, anxiety, or addiction?: No Doesn?t believe in the benefits of treatment?: No Believes medications are unnecessary or harmful?: No Has a concern about medication side effects?: No Expresses concern over the cost of medications?: No Outcomes/Goals: Verbalizes medications,desired effect & common side effects @ DC, Pt self-reports following medication regimen, Keeps card in wallet w/medications listed by DC Interventions/plans: Instruct on medication effects & side effects, Review medication list w/patient every two weeks, Instruct importance of taking meds as ordered & assist problem solving 30-day Reassessments:: Progressing - Tobacco Use Tobacco Use: Non-smoker - Hypertension Hypertension Diagnosis:: Hypertension ICD-10 I10 Resting Blood Pressure:: 140/72 [place] [employer] Hypertension Guidelines: [place] [employer] Hypertension Guidelines. Normal BP Less than 120/80. Elevated BP 120/80. Hypertension Stage 1: BP 130-139/80-89. Hypertesnion Stage 2: BP 140 or higher/90 or higher. Hypertension Crisis: BP higher than 180/120 Peak Exercise Blood Pressure:: 164/78 Outcomes/Goals: Able to verbalize/achieve optimal blood pressure <130/80, Incorporates diet changes & exercise for blood pressure control by DC Interventions/plan: Instruct on optimal blood pressure, hypertension & medications, Instruct on effects of sodium, alcohol, stress, exercise &hypertension 30 day Reassessments:: Progressing - Tobacco Cessation Referral Smoking Cessation Referral:: No Individual Education/Counseling:: No Education Schedule Given:: Yes Psychosocial - 30-Day Assess - VIsit Date of Eval: 06/24/20 Session #:: 11 Not Applicable: Yes History of previous Mental disease:: No - Target Goals Target Goals: Assess presence or absence of depression. Using a valid screening tool, maximizes coping skills. Positive support system - Psychosocial Test Tool Used:: PHQ-9 Questionnaire phq-9 Severity: Severity. 1-4 Minimal Depression. 5-9 Mild Depression. 10-14 Moderate Depression. 15-19 Moderately Sever Depression. 20-27 Severe Depression. Rule: - Referral to Behavioral Health PS - Interventions: Yes Attend Stress Management Classes, No Referral to Behavioral Health if PHQ-9 score >9:, No Referral to [facility], No Referral to Physician if PHQ-9 if score is 5-9: - Outcomes/Goals: See list Psychosocial Outcomes/Goals:: ID's personal stressors & 2 strategies to manage stress by discharge - Intervention/Plan: See List Interventions/Plan:: Assess stressors,coping strategies & signs of derpression on admission, Instruct/assist pt to develop coping & personal stress Mgt strategies, Instruct patient to recognize signs & symptoms of depression, Instruct patient to recog - 30-day Reassessments: 30 day Reassessments:: Progressing Patient Health Questionnaire 30-Day Re-eval Assessment 1. Little interest or pleasure in doing things: Not at all 2. Feeling down, depressed, or hopeless: Several days 3. Trouble falling or staying asleep, or sleeping too much: Not at all 4. Feeling tired or having little energy: Several days 5. Poor appetite or overeating: Not at all 6. Feeling bad about yourself -- or that you are a failure or have let yourself or your family down: Not at all 7. Trouble concentrating on things, such as reading the newspaper or watching television: Not at all 8. Moving or speaking so slowly that other people could have noticed. Or the opposite - being so fidgety or restless that you have been moving around a lot more than usual: Not at all 9. Thoughts that you would be better off , or of hurting yourself in some way: Not at all How difficult have these problems made it for you to do your work, take care of things at home, or get along with other people?: Not difficult at all Total Score: 2 Self-Efficacy 30-Day Re-eval Assessment We would like to know how confident you are in doing certain activities. Please select your confidence level for:: Select your confidence level for the following using the scale 1-10 where 1 is not at all confident and 10 is totally confident. Your score is the average of all 6 responses. Fatigue: How confident are you that you can keep the fatigue caused by your disease from interfering with the things you want to do? Select Number: 9 Physical Discomfort or Pain: How confident are you that you can keep the physical discomfort or pain of your disease from interfering with the things you want to do? Select Number: 8 Emotional Distress: How confident are you that you can keep the emotional distress caused by your disease from interfering with the things you want to do? Select Number: 10 Other Symptoms or Health Problems: How confident are you that you can keep other symptoms or health problems from interfering with the things you want to do? Select Number: 10 Different Tasks and Activities: How confident are you that you can do the different tasks and activities needed to manage your health condition so as to reduce your need to see a doctor? Select Number: 9 Medication: How confident are you that you can do things other than just taking medication to reduce how much your illness affects your everyday life? Select Number: 10 Total Score:: 9
[2020-06-24 08:43] VITALS: BP 140/72; BP 164/78; BMI 27.9
== END 2020-07-08 23:59 ==
LOC: CR 15:15
PROVIDERS: PCP Family Medicine; Referring Provider Internal Medicine Cardiovascular Disease; Visit Provider Internal Medicine Cardiovascular Disease
DX: I25.110 Atherosclerotic heart disease of native coronary artery with unstable angina pectoris (principal); I25.2 Old myocardial infarction; Z95.5 Presence of coronary angioplasty implant and graft; I25.5 Ischemic cardiomyopathy
CPT/HCPCS: 93798

== ENCOUNTER 2020-08-07 15:15 | Outpatient (RCR) | payer MEDICARE, BC, SELFPAY ==
[2020-06-17 08:33] VITALS: BMI 28.5
[2020-06-24 08:43] VITALS: BMI 27.9
[2020-07-09 00:36] VITALS: BP 140/72; BP 164/78
--- NOTE | 2020-07-24 06:59 | PCM.CR.ITP ---
Exercise - 60-day Assessment - Visit Date of Eval: 07/24/20 Session #:: 23 - 100% compliance to date. 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 EKG Type: NSR to sinus tachycardiac with rare PVCs. - Outcomes & Goals Goals:: Verbalizes understanding of THR, RPE & goal METS by session 6, Documents in home exercise log/reports 30 min aerobic 5 day/wk by DC, Demonstrates accurate pulse taking by DC - Intervention & Plan Exercise Program Goals: Instruct on personal THR & RPE, Instruct on MET level & personal MET goal, Show patient to take own pulse /validate performance until accurate, Instruct on home exercise - 30-day Reassessments 30 day Reassessments:: Progressing - Physical Activity Home Exercise Physical Activity - Home Exercise: Safe Exercise, Warm-up, Self-monitoring, Cool-Down, Home Exercise > 30 min Daily, Sitting Time <3 hours/daily - Outcomes & Goals Outcomes/Goals: Demonstrates correct Warm-up/exercise Cool-Down (S3) if = 2.5 METs, Verbalizes symptoms of exercise intolerance by Session 3 (S3), Demonstrate safe equipment use (S3) & follows exercise prescrition (6) - Intervention & Plan Plan/Intervention: Instruct warm-up & cool-down if exercising at > 2 METs, Instruct on symptoms of exercise intolerance & actions to take, Instruct & monitor on saf, Assess intial functional capacity & safety risk - 30-day Reassessments 30 day Reassessments:: Progressing Nutrition - 60-Day Assessment - Program Goals Nutrition Program Goals: LDL <100 optimal. 100 - 129 Near optimal. 130 - 159 Borderline High. 160 - 189 High. Total Cholesterol <200 desirable. 200 - 239 Borderline High. >/= 240 High. HDL < 40 Low >/=60 High. Triglycerides <150 desirable. <199 optimal. VlDL 5 - 40. HgbA1C <7%. BMI <25 Patient has diagnosis of Hyperlipidemia (ICD E78)?: Yes - Visit Date of Assessment:: 07/24/20 Session #:: 23 - no recent labs drawn since admission to [facility] - Cholesterol/Lipids Determine presence & major risk factors that modify LDL goal: Hypertension or hypertensive medication, Family history of premature CHD in Male < 55 years: female <65 yearsFa, Age men > 45 years; women >/= 55 years Outcomes/Goals: Pt IDs own risk factors & lifestyle modifications by Session 10, Verbalizes symptoms of angina & response by session 3., Pt independently manages Intervention/Plan: Instruct on personal lipid levels & lipid goals/NCEP guidelines, Instruct on cholesterol Referral to dietitian:: No - Patient declined services with nutrition therapy 30-day Reassessments:: Progressing - Diabetes (Other Core Measures) Diabetes Type: Not Applicable - Weight Mgt (Other Care) Not Applicable: Yes Height: 6 ft Weight:: 204 lb 8 oz - down from 208 this 30-days BMI: 27.7 Diagnosis Overweight/Obesity BMI> 30% ICD-10 E66: No Diagnosis High BMI/Morbid Obesity BMI> 35% ICD-10 Z68: No Outcomes/Goals: Pt sets, maintains & shows weight loss goal & trend during rehab Intervention/Plan: Instruct on ideal BMI & set weight loss goal w/patient, Assist pt to ID & incorporate diet changes for weight loss by S9, Encourage goal of using 250-300dcal per session for weight loss 30 day Reassessments:: Progressing - Healthy Eating Habits Will attend diet classes:: Yes Outcomes/Goals:: Consume diet rich in vegs,fruits,whole grain/high fiber,fish,lean meat, Limit sat/trans fats,cholesterol & added salts & sugars Intervention/Plan:: Assess current eating habits 30-day Reassessments:: Progressing - Education Gave educational materials for:: Healthy eating Medical- 60-Day Assessment - Visit Date of Eval: 07/24/20 Session #:: 23 - Medication Compliance Preventative Medication(s):: Aspirin, Ticagrelor/P2Y12 inhibitor, Statin/lipid, Beta estella H/O mental health issues: depression, anxiety, or addiction?: No Doesn?t believe in the benefits of treatment?: No Believes medications are unnecessary or harmful?: No Has a concern about medication side effects?: No Expresses concern over the cost of medications?: No Outcomes/Goals: Verbalizes medications,desired effect & common side effects @ DC, Pt self-reports following medication regimen, Keeps card in wallet w/medications listed by DC Interventions/plans: Instruct on medication effects & side effects, Review medication list w/patient every two weeks, Instruct importance of taking meds as ordered & assist problem solving 30-day Reassessments:: Progressing - Tobacco Use Tobacco Use: Non-smoker - Hypertension Hypertension Diagnosis:: Hypertension ICD-10 I10 Resting Blood Pressure:: 168/88 - Report to be sent to Dr. Milligan [place] [employer] Hypertension Guidelines: [place] [employer] Hypertension Guidelines. Normal BP Less than 120/80. Elevated BP 120/80. Hypertension Stage 1: BP 130-139/80-89. Hypertesnion Stage 2: BP 140 or higher/90 or higher. Hypertension Crisis: BP higher than 180/120 Peak Exercise Blood Pressure:: 180/86 Outcomes/Goals: Able to verbalize/achieve optimal blood pressure <130/80, Incorporates diet changes & exercise for blood pressure control by DC Interventions/plan: Instruct on optimal blood pressure, hypertension & medications, Instruct on effects of sodium, alcohol, stress, exercise &hypertension 30 day Reassessments:: Progressing - Tobacco Cessation Referral Smoking Cessation Referral:: No Individual Education/Counseling:: No Education Schedule Given:: Yes Psychosocial - 60-Day Assess - VIsit Date of Eval: 07/24/20 Session #:: 23 Not Applicable: Yes History of previous Mental disease:: No - Target Goals Target Goals: Assess presence or absence of depression. Using a valid screening tool, maximizes coping skills. Positive support system - Psychosocial Test Tool Used:: PHQ-9 Questionnaire phq-9 Severity: Severity. 1-4 Minimal Depression. 5-9 Mild Depression. 10-14 Moderate Depression. 15-19 Moderately Sever Depression. 20-27 Severe Depression. Rule: - Referral to Behavioral Health PS - Interventions: Yes Attend Stress Management Classes, No Referral to Behavioral Health if PHQ-9 score >9:, No Referral to [facility], No Referral to Physician if PHQ-9 if score is 5-9: - Outcomes/Goals: See list Psychosocial Outcomes/Goals:: ID's personal stressors & 2 strategies to manage stress by discharge - Intervention/Plan: See List Interventions/Plan:: Assess stressors,coping strategies & signs of derpression on admission, Instruct/assist pt to develop coping & personal stress Mgt strategies, Instruct patient to recognize signs & symptoms of depression, Instruct patient to recog - 30-day Reassessments: 30 day Reassessments:: Met Patient Health Questionnaire 60-Day Re-eval Assessment 1. Little interest or pleasure in doing things: Not at all 2. Feeling down, depressed, or hopeless: Not at all 3. Trouble falling or staying asleep, or sleeping too much: Not at all 4. Feeling tired or having little energy: Not at all 5. Poor appetite or overeating: Not at all 6. Feeling bad about yourself -- or that you are a failure or have let yourself or your family down: Not at all 7. Trouble concentrating on things, such as reading the newspaper or watching television: Not at all 8. Moving or speaking so slowly that other people could have noticed. Or the opposite - being so fidgety or restless that you have been moving around a lot more than usual: Not at all 9. Thoughts that you would be better off , or of hurting yourself in some way: Not at all Total Score: 0 Self-Efficacy 60-Day Re-eval Assessment We would like to know how confident you are in doing certain activities. Please select your confidence level for:: Select your confidence level for the following using the scale 1-10 where 1 is not at all confident and 10 is totally confident. Your score is the average of all 6 responses. Fatigue: How confident are you that you can keep the fatigue caused by your disease from interfering with the things you want to do? Select Number: 10 Physical Discomfort or Pain: How confident are you that you can keep the physical discomfort or pain of your disease from interfering with the things you want to do? Select Number: 10 Emotional Distress: How confident are you that you can keep the emotional distress caused by your disease from interfering with the things you want to do? Select Number: 10 Other Symptoms or Health Problems: How confident are you that you can keep other symptoms or health problems from interfering with the things you want to do? Select Number: 10 Different Tasks and Activities: How confident are you that you can do the different tasks and activities needed to manage your health condition so as to reduce your need to see a doctor? Select Number: 10 Medication: How confident are you that you can do things other than just taking medication to reduce how much your illness affects your everyday life? Select Number: 10 Total Score:: 10
[2020-07-24 07:05] VITALS: BP 168/88; BP 180/86; BMI 27.7
== END 2020-08-08 23:59 ==
LOC: CR 15:15
PROVIDERS: PCP Family Medicine; Referring Provider Internal Medicine Cardiovascular Disease; Visit Provider Internal Medicine Cardiovascular Disease
DX: I25.110 Atherosclerotic heart disease of native coronary artery with unstable angina pectoris (principal); I25.5 Ischemic cardiomyopathy; I25.2 Old myocardial infarction; Z95.5 Presence of coronary angioplasty implant and graft
CPT/HCPCS: 93798

== ENCOUNTER 2020-08-26 15:15 | Outpatient (RCR) | payer MEDICARE, BC, SELFPAY ==
[2020-06-17 08:33] VITALS: BMI 28.5
[2020-07-24 07:05] VITALS: BMI 27.7
[2020-08-09 00:31] VITALS: BP 168/88; BP 180/86
--- NOTE | 2020-08-22 10:43 | PCM.CR.ITP ---
Exercise - 90-day Assessment - Visit Date of Eval: 08/22/20 Session #:: 34 - Physician Prescribed Exercise Modalities: Rower, Airdyne, NuStep Frequency: 3x/week for 12 weeks [36 sessions] Intensity: 60-80% of age predicted maximum heart rate reserve Current METSs:: 7.0 increased from 6.5 Target Heart Rate:: 100-130 Current RPE:: 13-14 Maximum Excercise HR:: 123 Resting Blood Pressure: 132/74 Maximum Exercise Blood Pressure: 176/78 EKG Type: NSR to sinus tach with rare PVCs - Outcomes & Goals Goals:: Verbalizes understanding of THR, RPE & goal METS by session 6, Documents in home exercise log/reports 30 min aerobic 5 day/wk by DC, Demonstrates accurate pulse taking by DC - Intervention & Plan Exercise Program Goals: Instruct on personal THR & RPE, Instruct on MET level & personal MET goal, Show patient to take own pulse /validate performance until accurate, Instruct on home exercise - 30-day Reassessments 30 day Reassessments:: Met - Physical Activity Home Exercise Physical Activity - Home Exercise: Safe Exercise, Warm-up, Self-monitoring, Cool-Down, Home Exercise > 30 min Daily, Sitting Time <3 hours/daily - Outcomes & Goals Outcomes/Goals: Demonstrates correct Warm-up/exercise Cool-Down (S3) if = 2.5 METs, Verbalizes symptoms of exercise intolerance by Session 3 (S3), Demonstrate safe equipment use (S3) & follows exercise prescrition (6) - Intervention & Plan Plan/Intervention: Instruct warm-up & cool-down if exercising at > 2 METs, Instruct on symptoms of exercise intolerance & actions to take, Instruct & monitor on saf, Assess intial functional capacity & safety risk - 30-day Reassessments 30 day Reassessments:: Met Nutrition - 90-Day Assessment - Program Goals Nutrition Program Goals: LDL <100 optimal. 100 - 129 Near optimal. 130 - 159 Borderline High. 160 - 189 High. Total Cholesterol <200 desirable. 200 - 239 Borderline High. >/= 240 High. HDL < 40 Low >/=60 High. Triglycerides <150 desirable. <199 optimal. VlDL 5 - 40. HgbA1C <7%. BMI <25 Patient has diagnosis of Hyperlipidemia (ICD E78)?: Yes - Visit Date of Assessment:: 08/22/20 Session #:: 34 - Cholesterol/Lipids Determine presence & major risk factors that modify LDL goal: Hypertension or hypertensive medication, Family history of premature CHD in Male < 55 years: female <65 yearsFa, Age men > 45 years; women >/= 55 years Outcomes/Goals: Pt IDs own risk factors & lifestyle modifications by Session 10, Verbalizes symptoms of angina & response by session 3., Pt independently manages Intervention/Plan: Instruct on personal lipid levels & lipid goals/NCEP guidelines, Instruct on cholesterol Referral to dietitian:: No 30-day Reassessments:: Progressing - Diabetes (Other Core Measures) Diabetes Type: Not Applicable - Weight Mgt (Other Care) Not Applicable: Yes Height: 6 ft Weight:: 206 lb BMI: 27.9 Diagnosis Overweight/Obesity BMI> 30% ICD-10 E66: No Diagnosis High BMI/Morbid Obesity BMI> 35% ICD-10 Z68: No Outcomes/Goals: Pt sets, maintains & shows weight loss goal & trend during rehab Intervention/Plan: Instruct on ideal BMI & set weight loss goal w/patient 30 day Reassessments:: Progressing - Healthy Eating Habits Will attend diet classes:: Yes Outcomes/Goals:: Consume diet rich in vegs,fruits,whole grain/high fiber,fish,lean meat, Limit sat/trans fats,cholesterol & added salts & sugars Intervention/Plan:: Assess current eating habits 30-day Reassessments:: Met Medical- 90-Day Assessment - Visit Date of Eval: 08/22/20 Session #:: 34 - Medication Compliance Preventative Medication(s):: Aspirin, Ticagrelor/P2Y12 inhibitor, Statin/lipid, Beta estella H/O mental health issues: depression, anxiety, or addiction?: No Doesn?t believe in the benefits of treatment?: No Believes medications are unnecessary or harmful?: No Has a concern about medication side effects?: No Expresses concern over the cost of medications?: No Outcomes/Goals: Verbalizes medications,desired effect & common side effects @ DC, Pt self-reports following medication regimen, Keeps card in wallet w/medications listed by DC Interventions/plans: Instruct on medication effects & side effects, Review medication list w/patient every two weeks, Instruct importance of taking meds as ordered & assist problem solving 30-day Reassessments:: Met - Tobacco Use Tobacco Use: Non-smoker - Hypertension Hypertension Diagnosis:: Hypertension ICD-10 I10 Resting Blood Pressure:: 132/74 [place] [employer] Hypertension Guidelines: [place] [employer] Hypertension Guidelines. Normal BP Less than 120/80. Elevated BP 120/80. Hypertension Stage 1: BP 130-139/80-89. Hypertesnion Stage 2: BP 140 or higher/90 or higher. Hypertension Crisis: BP higher than 180/120 Peak Exercise Blood Pressure:: 176/78 Outcomes/Goals: Able to verbalize/achieve optimal blood pressure <130/80, Incorporates diet changes & exercise for blood pressure control by DC Interventions/plan: Instruct on optimal blood pressure, hypertension & medications, Instruct on effects of sodium, alcohol, stress, exercise &hypertension 30 day Reassessments:: Met - Tobacco Cessation Referral Smoking Cessation Referral:: No Individual Education/Counseling:: No Education Schedule Given:: Yes Psychosocial - 90-Day Assess - VIsit Date of Eval: 08/22/20 Session #:: 34 Not Applicable: Yes History of previous Mental disease:: No - Target Goals Target Goals: Assess presence or absence of depression. Using a valid screening tool, maximizes coping skills. Positive support system - Psychosocial Test Tool Used:: PHQ-9 Questionnaire phq-9 Severity: Severity. 1-4 Minimal Depression. 5-9 Mild Depression. 10-14 Moderate Depression. 15-19 Moderately Sever Depression. 20-27 Severe Depression. Rule: - Referral to Behavioral Health PS - Interventions: Yes Attend Stress Management Classes, No Referral to Behavioral Health if PHQ-9 score >9:, No Referral to [facility], No Referral to Physician if PHQ-9 if score is 5-9: - Outcomes/Goals: See list Psychosocial Outcomes/Goals:: ID's personal stressors & 2 strategies to manage stress by discharge - Intervention/Plan: See List Interventions/Plan:: Assess stressors,coping strategies & signs of derpression on admission, Instruct/assist pt to develop coping & personal stress Mgt strategies, Instruct patient to recognize signs & symptoms of depression, Instruct patient to recog - 30-day Reassessments: 30 day Reassessments:: Met Patient Health Questionnaire 90-Day Re-eval Assessment 1. Little interest or pleasure in doing things: Not at all 2. Feeling down, depressed, or hopeless: Not at all 3. Trouble falling or staying asleep, or sleeping too much: Not at all 4. Feeling tired or having little energy: Not at all 5. Poor appetite or overeating: Not at all 6. Feeling bad about yourself -- or that you are a failure or have let yourself or your family down: Not at all 7. Trouble concentrating on things, such as reading the newspaper or watching television: Not at all 8. Moving or speaking so slowly that other people could have noticed. Or the opposite - being so fidgety or restless that you have been moving around a lot more than usual: Not at all 9. Thoughts that you would be better off , or of hurting yourself in some way: Not at all Total Score: 0 Self-Efficacy 90-Day Re-eval Assessment We would like to know how confident you are in doing certain activities. Please select your confidence level for:: Select your confidence level for the following using the scale 1-10 where 1 is not at all confident and 10 is totally confident. Your score is the average of all 6 responses. Fatigue: How confident are you that you can keep the fatigue caused by your disease from interfering with the things you want to do? Select Number: 10 Physical Discomfort or Pain: How confident are you that you can keep the physical discomfort or pain of your disease from interfering with the things you want to do? Select Number: 10 Emotional Distress: How confident are you that you can keep the emotional distress caused by your disease from interfering with the things you want to do? Select Number: 10 Other Symptoms or Health Problems: How confident are you that you can keep other symptoms or health problems from interfering with the things you want to do? Select Number: 10 Different Tasks and Activities: How confident are you that you can do the different tasks and activities needed to manage your health condition so as to reduce your need to see a doctor? Select Number: 10 Medication: How confident are you that you can do things other than just taking medication to reduce how much your illness affects your everyday life? Select Number: 10 Total Score:: 10
[2020-08-22 10:47] VITALS: BP 132/74; BP 176/78; BMI 27.9
== END 2020-09-08 23:59 ==
LOC: CR 15:15
PROVIDERS: PCP Family Medicine; Referring Provider Internal Medicine Cardiovascular Disease; Visit Provider Internal Medicine Cardiovascular Disease
DX: I25.110 Atherosclerotic heart disease of native coronary artery with unstable angina pectoris (principal); I25.5 Ischemic cardiomyopathy; I25.2 Old myocardial infarction; Z95.5 Presence of coronary angioplasty implant and graft
CPT/HCPCS: 93798

== ENCOUNTER → 2020-12-03 07:00 | Outpatient (CLI) | payer MEDICARE, BC, SELFPAY ==
[2020-06-17 08:33] VITALS: BMI 28.5
[2020-08-22 10:47] VITALS: BMI 27.9
[2020-12-03 08:46] LABS: AST(SGOT) 19 U/L (15-37); Alanine Aminotransfer ALT/SGPT 39 U/L (16-61); Albumin, Serum 4.2 g/dL (3.2-5.0); Alkaline Phosphatase 57 U/L (45-117); Bilirubin, Direct 0.29 mg/dL (0.00-0.30); Cholesterol 164 mg/dL (200); Globulin 3.4 g/dL (2.2-4.2); High Density Lipoprotein 49 mg/dL; Protein, Total 7.6 g/dL (6.4-8.2); Triglycerides 127 mg/dL; Very Low Density Lipoprotein 25 mg/dL (5-40)
== END ==
PROVIDERS: PCP Family Medicine; Referring Provider Internal Medicine Cardiovascular Disease; Visit Provider Internal Medicine Cardiovascular Disease
DX: E78.5 Hyperlipidemia, unspecified (principal)
CPT/HCPCS: 36415; 80061; 80076

== ENCOUNTER 2021-09-23 08:40 | Outpatient (CLI) | payer MEDICARE, BC, SELFPAY ==
[2020-08-22 10:47] VITALS: BMI 27.9
[2021-09-23 10:05] LABS: Erythrocyte Sedimentation Rate 2 mm/hr (0-20)
[2021-09-23 10:06] LABS: Absolute Lymphocyte Count 1.33 X10^3/uL (0.83-4.51); Absolute Neutrophil Count 3.7 X10^3/uL (2.0-7.7); Basophil# 0.04 X10^3/uL; Basophil% 0.7 % (0-1); Eosinophil# 0.13 X10^3/uL; Eosinophils% 2.2 % (0-5); Hemoglobin 14.8 g/dL (13.0-16.5); Lymphocyte # 1.33 X10^3/ul (0.83-4.51); Lymphocyte % 22.8 % (19-41); Mean Corp Hgb Conc 35.2 g/dL (32-36); Mean Corpuscular Hgb 31.3 pg (27.0-32.0); Mean Corpuscular Volume 88.8 fL (80-94); Mean Platelet Vol. 11.3 fl (6.2-12.0); Monocyte# 0.59 X10^3/uL; Monocyte% 10.1 % (0-10); NRBC Flagged by Analyzer 0 % (0-5); Neutrophil # 3.74 X10^3/uL (2.7-7.7); Platelet Count 207 K/mm3 (150-450); RBC Distribution Width CV 12.8 % (11.6-14.6); RBC Distribution Width SD 42.2 fl (35.1-43.9); Red Blood Count 4.73 M/mm3 (4.6-6.2); White Blood Count 5.8 K/mm3 (4.4-11.0)
[2021-09-23 10:14] LABS: Hemoglobin A1c 5.4 % (3.8-5.6)
[2021-09-23 10:37] LABS: ALB/GLOB Ratio 1.2 RATIO (0.9-2.4); AST(SGOT) 25 U/L (15-37); Alanine Aminotransfer ALT/SGPT 54 U/L (16-61); Albumin, Serum 4.1 g/dL (3.2-5.0); Alkaline Phosphatase 57 U/L (45-117); Anion Gap 4 (5-15); BUN 21 mg/dL (7-18); BUN/Creat Ratio 17.9 RATIO (10-20); CRP < 2.90 mg/L (0.0-3.0); Calcium,Total 9.1 mg/dL (8.5-10.1); Chloride 107 mmol/L (98-107); Creatinine, Serum 1.17 mg/dL (0.70-1.30); EST Glomerular Filtration Rate 66 mL/min (>60); Est Glom Filt Rate - Afr Amer 80 mL/min (>60); Globulin 3.5 g/dL (2.2-4.2); Glucose 104 mg/dL (74-106); LDH 191 U/L (87-241); Potassium 4.1 mmol/L (3.5-5.1); Protein, Total 7.6 g/dL (6.4-8.2); Sodium Level 139 mmol/L (136-145)
[2021-09-23 10:38] LABS: Cholesterol 141 mg/dL (200); High Density Lipoprotein 37 mg/dL; Triglycerides 190 mg/dL; Very Low Density Lipoprotein 38 mg/dL (5-40)
[2021-09-23 10:53] LABS: ALB/GLOB Ratio 1.2 RATIO (0.9-2.4); Bilirubin, Direct 0.22 mg/dL (0.00-0.30); Globulin 3.2 g/dL (2.2-4.2); Protein, Total 7.2 g/dL (6.4-8.2)
[2021-09-24 13:08] LABS: Anti-Centromere B Ab <0.2 AI (0.0-0.9); Anti-Chromatin <0.2 AI (0.0-0.9); Anti-Jo <0.2 AI (0.0-0.9); Anti-Scleroderma-70 AB <0.2 AI (0.0-0.9); RNP Ab <0.2 AI (0.0-0.9); SJOGREN'S Anti-SS-A test < 0.2 AI (0.0-0.9); SJOGREN'S Anti-SS-B test < 0.2 AI (0.0-0.9); Smith Ab <0.2 AI (0.0-0.9)
[2021-09-24 15:28] LABS: Anti-dsDNA Ab <1 IU/mL (0-9)
[2021-09-24 17:54] LABS: Anti-Mitochondrial AB <20.0 Units (0.0-20.0)
[2021-09-28 01:06] LABS: Albumin 3.8 g/dL (2.9-4.4); Alpha-1-Globulins 0.2 g/dL (0.0-0.4); Alpha-2-Globulins 0.8 g/dL (0.4-1.0); Angiotensin Convert Enzyme 51 U/L (14-82); Ceruloplasmin 19.6 mg/dL (16.0-31.0); Cytoplasmic Ab (C-ANCA) <1:20 titer (Neg:<1:20); Endomysial Antibody IgA Negative (Negative); Gamma Globulin 1.1 g/dL (0.4-1.8); HEPATITIS B SURFACE AG Negative (Negative); Hepatitis A IgM Antibody Negative (Negative); Hepatitis B Core AB IgM Negative (Negative); Immunoglobulin A 156 mg/dL (61-437); Immunoglobulin E 25 IU/mL (6-495); Immunoglobulin G 861 mg/dL (603-1613); Immunoglobulin M 69 mg/dL (20-172)
[2021-09-28 13:28] LABS: Anti-Smooth Muscle ABS 18 Units (0-19); Copper, Serum or Plasma 94 ug/dL (69-132); Haptoglobin 97 mg/dL (32-363); Hep C Antibodies <0.1 s/co ratio (0.0-0.9); Perinuclear Ab (P-ANCA) <1:20 titer (Neg:<1:20); t-Transglutaminase IgA <2 U/mL (0-3)
== END 2021-09-23 23:59 | disposition home or self-care (01) ==
LOC: LAB 08:46
PROVIDERS: Internal Medicine Gastroenterology; PCP Family Medicine; Visit Provider Internal Medicine Cardiovascular Disease
DX: R16.0 Hepatomegaly, not elsewhere classified (principal); R07.89 Other chest pain; Z79.899 Other long term (current) drug therapy; E78.00 Pure hypercholesterolemia, unspecified
CPT/HCPCS: 36415; 80053; 80061; 80074; 82164; 82248; 82390; 82525; 82784; 82785; 83010; 83036; 83516; 83615; 84156; 84165; 85025; 85652; 86140; 86225; 86235; 86255; 86256; 86334

== ENCOUNTER 2021-10-01 08:12 | Outpatient (CLI) | payer MEDICARE, BC, SELFPAY ==
[2020-08-22 10:47] VITALS: BMI 27.9
--- NOTE | 2021-10-01 08:21 | US_ITS ---
STUDY: ABDOMINAL ULTRASOUND - RIGHT UPPER QUADRANT REASON FOR VISIT: Male, 65 years old . Hepatomegaly. TECHNIQUE: Ultrasound evaluation of the right upper quadrant was performed with real-time and static kruger-scale imaging. TECHNICAL QUALITY: Adequate. COMPARISON: None. FINDINGS: Liver: The liver measures 16.9 cm. There is increased echogenicity consistent with fatty infiltration. The bile ducts are within normal limits. There is hepatic color flow. The direction of portal flow is hepatopetal. There is no demonstrated mass lesion. Gallbladder: Normal distended gallbladder. The gallbladder wall measures 1.8 mm. There is a negative sonographic Perlata''s sign. There is no pericholecystic fluid. There are no gallstones. Common Bile Duct (C.B.D.): The common bile duct measures 4.5 mm. Pancreas: Normal size of the head, body and tail of the pancreas. There is normal echogenicity of the pancreas. There is no demonstrated pancreatic mass or cyst. Right Kidney: Normal size of the right kidney. The right kidney measures 11.6 cm x 5.7 cm x 5.9 cm. Normal renal cortex. The right cortex measures 2.2 cm. There is no demonstrated renal mass or cyst. There is no right hydronephrosis. IMPRESSION: Borderline hepatomegaly. Fatty infiltration of the liver. Electronically Signed: Serafin Elizondo MD at 10:43 EST , STUDY: ABDOMINAL ULTRASOUND - ELASTOGRAPHY REASON FOR VISIT: Male, 65 years old. Fatty infiltration of the liver. TECHNIQUE: Liver stiffness measurements were obtained on a [employer] 85 ultrasound machine using a CA 1-7 probe following the SRU guidelines. 3 measurements were obtained using a 2-D-SWE method. The IQR/M was 17% suggesting a quality data set. TECHNICAL QUALITY: Adequate. COMPARISON: Comparison is made with prior study done earlier in the day. FINDINGS: Liver: Fatty infiltration of the liver. Median liver stiffness measured 9.1 kPa. US/Abdomen Limited IMPRESSION: Liver stiffness measures 9.1 kPa compatible with F3 Metavir score. Electronically Signed: Serafin Elizondo MD at 10:47 EST ,
== END 2021-10-01 23:59 | disposition home or self-care (01) ==
LOC: US 08:14
PROVIDERS: PCP Family Medicine; Referring Provider Internal Medicine Gastroenterology; Visit Provider Internal Medicine Gastroenterology
DX: R16.0 Hepatomegaly, not elsewhere classified (principal)
CPT/HCPCS: 76705; 76981

== ENCOUNTER 2021-11-05 11:08 | Day surgery (SDC) | payer MEDICARE, BC, SELFPAY ==
[2020-08-22 10:47] VITALS: BMI 27.9
[2021-11-05 11:24] VITALS: BP 128/72; PULSE 62; RESP 16; TEMP 36.2; O2SAT 98; BMI 27.8
[2021-11-05] MEDS: Lactated Ringers 1,000 ML 15 ML IV (11:31)
--- NOTE | 2021-11-05 12:15 | IMM_PTH ---
PATIENT: ANDRE JOHNSON LOC: EN U#:[id number] AGE/SX: 65/M ROOM: RE11/05/[address]: Dr. Mina Del Cid DO : 1955 BED: DIS: 11/05/2021 SPEC #: [id number] RECD: 11/06/21 12:59 STATUS: TREV REQ #: [id number] MAVIS: 11/05/21 12:[address]: Mina Del Cid DEPT: IMMUNOHISTOCHEMISTRY RECD BY: Yuki Nichole ENTERED: 11/06/21 13:00 SP TYPE: IMMUNO OTHR DR: Dr. Roney De La Garza MD Tissues: B - Stomach, NOS Procedures: H Pylori (initial) PHYSICIAN & INSTITUTION [place] [address] SPECIMEN INFORMATION: Tissue Source: B ? Gastric body biopsy Clinical Info: Irritable bowel syndrome, hepatomegaly Specimen Number: [id number] CPT code: 40847 METHODOLOGY: Deparaffinized sections of prefer/formalin-fixed tissue or PAP/DQ stained slides are incubated with monoclonal/polyclonal antibodies/oligonucleotide probes. Localization is made via biotin free immunoperoxidase method. Appropriate controls are performed and reacted as expected. Results on target cell population are indicated in the following table: RESULTS: ANTIBODY / CLONE RESULT Block B H Pylori (polyclonal) negative These tests were developed and their performance characteristics determined by [facility]. They may not have been cleared or approved by the U.S. Food and Drug Administration. The FDA has determined that such clearance or approval is not necessary. The above immunohistochemical/dualISH markers are ordered and reviewed by the Pathologist. INTERPRETATION: B. Gastric body, biopsy: Negative for Helicobacter pylori organisms. AM:celia 11/07/2021
--- NOTE | 2021-11-05 12:15 | COLBX_PTH ---
PATIENT: ANDRE JOHNSON LOC: EN U#:[id number] AGE/SX: 65/M ROOM: RE11/05/[address]: Dr. Mina Del Cid DO : 1955 BED: DIS: 11/05/2021 SPEC #: [id number] RECD: 11/05/21 15:01 STATUS: TREV RESherif #: [id number] MAVIS: 11/05/21 12:[address]: Mina Del Cid DEPT: SURGICAL PATHOLOGY RECD BY: Rosalee Burks ENTERED: 11/06/21 08:53 SP TYPE: COLON BX OTHR DR: Dr. Roney De La Garza MD Tissues: A - Duodenum, NOS B - Gastric mucous membrane C - Esophagus, NOS D - Ileum, NOS E - COLON BIOPSY F - Ascending colon Procedures: Special Stain Group II Surgery Specimen Level IV Alcian Blue/PAS (control) HEADER OPERATION: Colonoscopy, EGD ([facility]) PRE-OP DIAGNOSIS: Irritable bowel syndrome, hepatomegaly TISSUE SUBMITTED: A ? Duodenum biopsy, B ? Gastric body biopsy, C ? Distal esophagus biopsy, D ? Terminal ileum biopsy, E ? Random colon biopsy, F ? Ascending colon polyp biopsy MICROSCOPIC DIAGNOSIS A. Duodenum, biopsy: Focal acute duodenitis. B. Gastric body, biopsy: Minimal chronic inflammation. See comment. C. Distal esophagus, biopsy: Gastroesophageal junctional mucosa with chronic inflammation. No evidence of goblet cell metaplasia. See comment. D. Terminal ileum, biopsy: Focal ulceration with associated acute and chronic inflammation and granulation. E. Colon, random biopsy: No pathologic change. F. Ascending colon polyp, biopsy: Tubular adenoma. AM:celia 11/07/2021 COMMENT B. The results of immunohistochemistry for Helicobacter pylori will be reported separately ([id number]). C. Alcian blue/PAS stain with matched control supports the above diagnosis. MICROSCOPIC DESCRIPTION Slides are reviewed. GROSS DESCRIPTION A - Received in fixative is one container labeled with the patient's name and designated duodenum biopsy. The specimen consists of multiple irregular fragments of light victor soft tissue that in aggregate measure 0.8 x 0.3 x 0.1 cm. The specimen is totally submitted in one cassette. B - Received in fixative is one container labeled with the patient's name and designated gastric body biopsy. The specimen consists of multiple irregular fragments of light victor soft tissue that in aggregate measure 0.9 x 0.3 x 0.1 cm. The specimen is totally submitted in one cassette. C - Received in fixative is one container labeled with the patient's name and designated distal esophagus biopsy. The specimen consists of two irregular fragments of light victor soft tissue that in aggregate measure 0.6 x 0.3 x 0.1 cm. The specimen is totally submitted in one cassette. D - Received in fixative is one container labeled with the patient's name and designated terminal ileum biopsy. The specimen consists of multiple irregular fragments of light victor soft tissue that in aggregate measure 1 x 0.5 x 0.1 cm. The specimen is totally submitted in one cassette. E - Received in fixative is one container labeled with the patient's name and designated random colon biopsy. The specimen consists of multiple irregular fragments of light victor soft tissue that in aggregate measure 2 x 0.5 x 0.1 cm. The specimen is totally submitted in one cassette. F - Received in fixative is one container labeled with the patient's name and designated ascending colon polyp biopsy. The specimen consists of one irregular fragment of light victor soft tissue that measures 0.3 x 0.3 x 0.1 cm. The specimen is totally submitted in one cassette. / SJ:rg 11/06/2021 TC:2 CPT: 83458 x6, 25927
--- NOTE | 2021-11-05 12:27 | PCM.HP.BLA ---
History and Physical Date of Admission: 11/05/21 65 M who presents to the office today for For many years he has been having difficulty with constipation alternating with diarrhea. With constipation he is going every couple of days with hard stool and straining. Following the constipation movement, he then has urgent diarrhea with get a yellow oily stool with undigested food, bloating, minimal lower abdominal cramping. On days without movement he has tenesmus. He has noticed that fresh fruits and vegetables trigger diarrhea, red meats have been noticed to constipated. Previously greasy foods would trigger, however since his PR six years ago he has not been eating greasy foods. Omeprazole 40mg QD helps with heartburn; he continues to have this issue about once a week without pattern noted and possibly related to stress without additional aggravating or alleviating factors. PMH includes two heart attacks with the first six years prior, heart disease with presence of coronary artery stents, hyperlipidemia, HTN. ROS ENT ENT: Positive for nasal congestion Gastro GI: Positive for bloating, change in bowel habits, constipation, diarrhea and nausea/dyspepsia Musc Musculoskeletal: Positive for joint pain, stiffness and Arthritis Endo Endocrine: Positive for increased thirst/drinking Gregory/Lymp Hematologic/Lymphatic: Positive for easy bruising Exam Const General: cooperative and comfortable Nutritional Appearance: average body habitus and well nourished [facility] Head: normal to inspection Ears: hearing grossly normal bilaterally Nose: external nose normal Face and sinus: normal facial exam Mouth: oral mucosae normal Throat: posterior oropharynx normal Eyes General: appearance normal, both eyes and all related structures Neck Neck: normal visual inspection Chest Chest palpation & inspection: normal inspection of the chest and normal palpation of entire chest wall Resp Effort & Inspection: normal respiratory effort Auscultation: Bilateral: Clear to Auscultation Cardio Palpation: normal PMI Rate: regular rate Rhythm: regular rhythm GI Inspection: normal to inspection Auscultation: normal bowel sounds Percussion: normal to percussion Palpation: no hepatosplenomegaly Skin General: no rashes or lesions noted Neuro General: patient alert Extrem General: normal to inspection Psych Affect: normal affect Quality Reporting Tobacco Screening ([facility] 138) Smoking Status: Former smoker Assessment and Plan Assessment and Plan (1) Hepatomegaly: Status: Acute Orders: Orders: Comprehensive Metabolic Profil Today CRP Today LDH Today CBC W/Diff, Automated Today Erythrocyte Sed Rate Today ANCA Today Celiac Disease Profile Today Immunoglobulin E Today KISHORE + Protein Elect, Serum Today Hemoglobin A1c Today Ceruloplasmin Today Haptoglobin Today Anti-Mitochondrial AB Today Angiotensin Convert Enzyme Today Anti-Smooth Muscle ABS Today Copper, Serum or Plasma Today Hepatitis Panel Acute Today Abdomen Limited Today Elastography Parenchyma/Organ Today Plan - Dr. Enriquez Friend, DO: Patient was identified of having a mildly enlarged liver this is possibly secondary to nonalcoholic fatty liver disease. If it is it would contribute to some chronic inflammation resulting in CAD. (2) IBS (irritable bowel syndrome): Status: Acute Plan - Dr. Enriquez Friend, DO: This is possibly irritable bowel syndrome with diarrhea. However due to the fact that he is having 10 bowel movements with urgency and fecal incontinence. We will have to rule out infectious etiology, inflammatory bowel disease, protein-losing enteropathy, chronic pancreatitis. He was okay with this plan. Further recommendation to follow. I have re-examined the patient. There are no clinical changes since date of exam.
[2021-11-05 13:05] VITALS: BP 113/74; BP 128/72; PULSE 64; RESP 16; TEMP 36.4; O2SAT 98
[2021-11-05 13:10] VITALS: BP 118/77; BP 128/72; PULSE 59; RESP 16; O2SAT 99
--- NOTE | 2021-11-05 13:11 | OP.EGD_ITS ---
Patient Name: Karri Miguel Procedure Date: 11/05/2021 12:19 PM Date of : 1955 Age: 65 Procedure: Upper GI endoscopy Indications: Epigastric abdominal pain, Functional Dyspepsia Providers: Mina Del Cid DO Referring MD: Mina Del Cid DO Medicines: See the Anesthesia note for documentation of the administered medications Patient Profile: This is a 65 year old male. Refer to note in patient chart for documentation of history and physical. Patient has symptoms of chronic epigastric abdominal pain. Complications: No immediate complications. Procedure: Pre-Anesthesia Assessment: - Prior to the procedure, a History and Physical was performed, and patient medications and allergies were reviewed. The patient is competent. The risks and benefits of the procedure and the sedation options and risks were discussed with the patient. All questions were answered and informed consent was obtained. Patient identification and proposed procedure were verified by the physician. Mental Status Examination: alert and oriented. Airway Examination: normal oropharyngeal airway and neck mobility. Respiratory Examination: clear to auscultation. CV Examination: normal. Prophylactic Antibiotics: The patient does not require prophylactic antibiotics. Prior Anticoagulants: The patient has taken no previous anticoagulant or antiplatelet agents. ASA Grade Assessment: II - A patient with mild systemic disease. After reviewing the risks and benefits, the patient was deemed in satisfactory condition to undergo the procedure. The anesthesia plan was to use moderate sedation / analgesia (conscious sedation). Immediately prior to administration of medications, the patient was re-assessed for adequacy to receive sedatives. The heart rate, respiratory rate, oxygen saturations, blood pressure, adequacy of pulmonary ventilation, and response to care were monitored throughout the procedure. The physical status of the patient was re-assessed after the procedure. After obtaining informed consent, the endoscope was passed under direct vision. Throughout the procedure, the patient's blood pressure, pulse, and oxygen saturations were monitored continuously. The pediatric colonoscope was introduced through the mouth, and advanced to the second part of duodenum. The upper GI endoscopy was accomplished without difficulty. The patient tolerated the procedure well. Moderate Sedation: Moderate (conscious) sedation was administered by the endoscopy nurse and supervised by the endoscopist. The patient's oxygen saturation, heart rate, blood pressure and response to care were monitored. Total physician intraservice time was 15 minutes. Moderate (conscious) sedation was administered by the endoscopy nurse and supervised by the endoscopist. The patient's oxygen saturation, heart rate, blood pressure and response to care were monitored. Total physician intraservice time was 15 minutes. Scope In: 12:32:18 PM Scope Out: 12:38:20 PM Total Procedure Duration Time 0 hours 6 minutes 2 seconds Findings: LA Grade A (one or more mucosal breaks less than 5 mm, not extending between tops of 2 mucosal folds) esophagitis with no bleeding was found 38 to 40 cm from the incisors. Biopsies were taken with a cold forceps for histology. Verification of patient identification for the specimen was done. Estimated blood loss was minimal. Patchy mildly erythematous mucosa without bleeding was found in the gastric antrum. Biopsies were taken with a cold forceps for histology. Verification of patient identification for the specimen was done. Estimated blood loss was minimal. The first portion of the duodenum was normal. Biopsies were taken with a cold forceps for histology. Verification of patient identification for the specimen was done. Estimated blood loss was minimal. A non-bleeding diverticulum with a small opening and no stigmata of recent bleeding was found in the upper third of the esophagus. Impression: - LA Grade A reflux esophagitis. Biopsied. - Erythematous mucosa in the antrum. Biopsied. - Normal first portion of the duodenum. Biopsied. Recommendation: - Discharge patient to home. - Resume previous diet. - Continue present medications. - Await pathology results. Procedure Code(s): --- Professional --- 84157, Esophagogastroduodenoscopy, flexible, transoral; with biopsy, single or multiple 45174, 59, Moderate sedation services provided by the same physician or other qualified health healthcare social worker performing the diagnostic or therapeutic service that the sedation supports, requiring the presence of an independent trained observer to assist in the monitoring of the patient's level of consciousness and physiological status; initial 15 minutes of intraservice time, patient age 5 years or older 32321, 59, Moderate sedation services provided by the same physician or other qualified health healthcare social worker performing the diagnostic or therapeutic service that the sedation supports, requiring the presence of an independent trained observer to assist in the monitoring of the patient's level of consciousness and physiological status; initial 15 minutes of intraservice time, patient age 5 years or older CPT copyright 2017 [employer]. All rights reserved. The codes documented in this report are preliminary and upon associate dean of women review may be revised to meet current compliance requirements. Mina Del iCd DO 11/05/2021 1:10:12 PM This report has been signed electronically. Number of Addenda: 1 Note Initiated On: 11/05/2021 12:19 PM Addendum Number: 1 Addendum Date: 05/06/2022 6:15:19 AM MAC was used as sedation for this procedure. Mina Del Cid DO 05/06/2022 6:15:26 AM This report has been signed electronically.
--- NOTE | 2021-11-05 13:11 | OP.CCLET_ITS ---
05/06/2022 Roney De La Garza Re : Upper GI endoscopy procedure for Karri Draker Frederic This procedure was performed on Friday, November 05, 2021. My impressions and recommendations are as follows: Impressions : - LA Grade A reflux esophagitis. Biopsied. - Erythematous mucosa in the antrum. Biopsied. - Normal first portion of the duodenum. Biopsied. Recommendations : - Discharge patient to home. - Resume previous diet. - Continue present medications. - Await pathology results. My findings are described in the full procedure note, which is enclosed. If I can be of further assistance, please feel free to contact me at . Sincerely, Mina Del Cid DO 11/05/2021 1:10:12 PM This report has been signed electronically.
[2021-11-05 13:15] VITALS: BP 125/73; BP 128/72; PULSE 51; RESP 16; O2SAT 97
--- NOTE | 2021-11-05 13:15 | OP.CCLET_ITS ---
05/06/2022 Roney De La Garza Re : Colonoscopy procedure for Karri Haines Frederic This procedure was performed on Friday, November 05, 2021. My impressions and recommendations are as follows: Impressions : - One 5 mm polyp in the ascending colon, removed with a hot snare. Resected and retrieved. - Congested mucosa in the recto-sigmoid colon, in the sigmoid colon, at the splenic flexure and in the ascending colon. Biopsied. - A few ulcers in the terminal ileum. Biopsied. Recommendations : - Written discharge instructions were provided to the patient. - The signs and symptoms of potential delayed complications were discussed with the patient. - Patient has a contact number available for emergencies. - Return to normal activities tomorrow. - Resume previous diet. - Continue present medications. - Await pathology results. - Repeat colonoscopy in 5 years for surveillance based on pathology results. My findings are described in the full procedure note, which is enclosed. If I can be of further assistance, please feel free to contact me at . Sincerely, Mina Del Cid, 11/05/2021 1:14:26 PM This report has been signed electronically.
--- NOTE | 2021-11-05 13:15 | OP.COLON_ITS ---
Patient Name: Karri Miguel Procedure Date: 11/05/2021 12:38 PM Date of : 1955 Age: 65 Procedure: Colonoscopy Indications: Clinically significant diarrhea of unexplained origin Providers: Mina Del Cid DO Referring MD: Mina Del Cid DO Medicines: See the Anesthesia note for documentation of the administered medications Patient Profile: This is a 65 year old male. Refer to note in patient chart for documentation of history and physical. Patient has symptoms of chronic epigastric abdominal pain. Last Colonoscopy: 5 years ago. Complications: No immediate complications. Procedure: Pre-Anesthesia Assessment: - Prior to the procedure, a History and Physical was performed, and patient medications and allergies were reviewed. The patient is competent. The risks and benefits of the procedure and the sedation options and risks were discussed with the patient. All questions were answered and informed consent was obtained. Patient identification and proposed procedure were verified by the physician. Mental Status Examination: alert and oriented. Airway Examination: normal oropharyngeal airway and neck mobility. Respiratory Examination: clear to auscultation. CV Examination: normal. Prophylactic Antibiotics: The patient does not require prophylactic antibiotics. Prior Anticoagulants: The patient has taken no previous anticoagulant or antiplatelet agents. ASA Grade Assessment: II - A patient with mild systemic disease. After reviewing the risks and benefits, the patient was deemed in satisfactory condition to undergo the procedure. The anesthesia plan was to use moderate sedation / analgesia (conscious sedation). Immediately prior to administration of medications, the patient was re-assessed for adequacy to receive sedatives. The heart rate, respiratory rate, oxygen saturations, blood pressure, adequacy of pulmonary ventilation, and response to care were monitored throughout the procedure. The physical status of the patient was re-assessed after the procedure. After I obtained informed consent, the scope was passed under direct vision. Throughout the procedure, the patient's blood pressure, pulse, and oxygen saturations were monitored continuously. The pediatric colonoscope was introduced through the anus and advanced to the terminal ileum. The colonoscopy was performed without difficulty. The patient tolerated the procedure well. The quality of the bowel preparation was good. Moderate Sedation: Moderate (conscious) sedation was administered by the endoscopy nurse and supervised by the endoscopist. The following parameters were monitored: oxygen saturation, heart rate, blood pressure, and response to care. Total physician intraservice time was 15 minutes. Scope In: 12:32:07 PM Scope Withdrawal Time 0 hours 10 minutes 4 seconds Scope Out: 12:57:59 PM Total Procedure Duration Time 0 hours 25 minutes 52 seconds Findings: The perianal and digital rectal examinations were normal. A 5 mm polyp was found in the ascending colon. The polyp was sessile. The polyp was removed with a hot snare. Resection and retrieval were complete. Verification of patient identification for the specimen was done. Estimated blood loss was minimal. An area of mildly congested mucosa was found in the recto-sigmoid colon, in the sigmoid colon, at the splenic flexure and in the ascending colon. Biopsies for histology were taken with a cold forceps from the ascending colon, right colon, left colon, transverse colon, right transverse colon, left transverse colon, descending colon, sigmoid colon, rectum and rectosigmoid colon for evaluation of microscopic colitis. Verification of patient identification for the specimen was done. Estimated blood loss was minimal. The terminal ileum contained a few six mm ulcers. No bleeding was present. Biopsies were taken with a cold forceps for histology. Verification of patient identification for the specimen was done. Estimated blood loss was minimal. A few small-mouthed diverticula were found in the recto-sigmoid colon and sigmoid colon. Non-bleeding internal hemorrhoids were found during retroflexion. The hemorrhoids were Grade II (internal hemorrhoids that prolapse but reduce spontaneously). Impression: - One 5 mm polyp in the ascending colon, removed with a hot snare. Resected and retrieved. - Congested mucosa in the recto-sigmoid colon, in the sigmoid colon, at the splenic flexure and in the ascending colon. Biopsied. - A few ulcers in the terminal ileum. Biopsied. Recommendation: - Written discharge instructions were provided to the patient. - The signs and symptoms of potential delayed complications were discussed with the patient. - Patient has a contact number available for emergencies. - Return to normal activities tomorrow. - Resume previous diet. - Continue present medications. - Await pathology results. - Repeat colonoscopy in 5 years for surveillance based on pathology results. Procedure Code(s): --- Professional --- 64786, Colonoscopy, flexible; with removal of tumor(s), polyp(s), or other lesion(s) by snare technique 41249, 59, Colonoscopy, flexible; with biopsy, single or multiple 29158, 59, Moderate sedation services provided by the same physician or other qualified health career education teacher performing the diagnostic or therapeutic service that the sedation supports, requiring the presence of an independent trained observer to assist in the monitoring of the patient's level of consciousness and physiological status; initial 15 minutes of intraservice time, patient age 5 years or older CPT copyright 2017 [employer]. All rights reserved. The codes documented in this report are preliminary and upon surgical coder review may be revised to meet current compliance requirements. Mina Del Cid DO 11/05/2021 1:14:26 PM This report has been signed electronically. Number of Addenda: 1 Note Initiated On: 11/05/2021 12:38 PM Addendum Number: 1 Addendum Date: 05/06/2022 6:15:34 AM MAC was used as sedation for this procedure. Mina Del Cid DO 05/06/2022 6:15:39 AM This report has been signed electronically.
[2021-11-05 13:25] VITALS: BP 128/72; BP 139/74; PULSE 51; RESP 16; O2SAT 98
[2021-11-05 13:36] VITALS: BP 128/72
== END 2021-11-05 23:59 | disposition home or self-care (01) ==
LOC: EN 11:09 → AC 11:11
PROVIDERS: PCP Family Medicine; Referring Provider Internal Medicine Gastroenterology; Visit Provider Internal Medicine Gastroenterology
PROC: 0DJD8ZZ Inspection of Lower Intestinal Tract, Via Natural or Artificial Opening Endoscopic (ICD-10-PCS; CPT 45378; principal; 2021-11-05 12:10)
DX: D12.2 Benign neoplasm of ascending colon (principal); K21.00 Gastro-esophageal reflux disease with esophagitis, without bleeding; Z87.891 Personal history of nicotine dependence; K64.1 Second degree hemorrhoids; R16.0 Hepatomegaly, not elsewhere classified; K58.9 Irritable bowel syndrome, unspecified; K29.80 Duodenitis without bleeding; K29.70 Gastritis, unspecified, without bleeding; K63.3 Ulcer of intestine; M19.90 Unspecified osteoarthritis, unspecified site; I10 Essential (primary) hypertension; I25.2 Old myocardial infarction; Z95.5 Presence of coronary angioplasty implant and graft; I25.10 Atherosclerotic heart disease of native coronary artery without angina pectoris; Z79.02 Long term (current) use of antithrombotics/antiplatelets; Z79.82 Long term (current) use of aspirin; Z79.899 Other long term (current) drug therapy; E78.5 Hyperlipidemia, unspecified; E78.00 Pure hypercholesterolemia, unspecified; M48.00 Spinal stenosis, site unspecified
CPT/HCPCS: 45385; 45380; 43239; 87426; 88305; 88313; 88342; C9803; J7120

== ENCOUNTER 2021-11-13 09:11 | Outpatient (CLI) | payer MEDICARE, BC, SELFPAY ==
[2020-08-22 10:47] VITALS: BMI 27.9
--- NOTE | 2021-11-13 09:12 | US_ITS ---
STUDY: ABDOMINAL ULTRASOUND - RIGHT UPPER QUADRANT REASON FOR VISIT: Male, 66 years old abdominal pain. Irritable bowel syndrome. TECHNIQUE: Ultrasound evaluation of the right upper quadrant was performed with real-time and static kruger-scale imaging. TECHNICAL QUALITY: Adequate. COMPARISON: Comparison is made with prior study dated 10/01/2021. FINDINGS: Liver: The liver measures 16.9 cm. Borderline hepatomegaly. There is increased echogenicity consistent with fatty infiltration. The bile ducts are within normal limits. There is hepatic color flow. The direction of portal flow is hepatopetal. There is no demonstrated mass lesion. Gallbladder: Normal distended gallbladder. The gallbladder wall measures 2.6 mm. There is a negative sonographic Peralta''s sign. There is no pericholecystic fluid. There are no gallstones. Common Bile Duct (C.B.D.): The common bile duct measures 2.9 mm. Pancreas: There is diffuse atrophy of the pancreas. There is increased echogenicity of the pancreas. There is no demonstrated pancreatic mass or cyst. Right Kidney: Normal size of the right kidney. The right kidney measures 12.2 cm x 6.2 cm x 4.3 cm. Normal renal cortex. The right cortex measures 1.6 cm. There is no demonstrated renal mass or cyst. There is no right hydronephrosis. US/Abdomen Limited IMPRESSION: Fatty infiltration of the liver. Mild pancreatic atrophy. Electronically Signed: Serafin Elizondo MD at 13:55 EDT ,
== END 2021-11-13 23:59 | disposition home or self-care (01) ==
LOC: US 09:12
PROVIDERS: PCP Family Medicine; Referring Provider Internal Medicine Gastroenterology; Visit Provider Internal Medicine Gastroenterology
DX: K58.9 Irritable bowel syndrome, unspecified (principal)
CPT/HCPCS: 76705

== ENCOUNTER 2021-11-27 08:46 | Outpatient (CLI) | payer MEDICARE, BC, SELFPAY ==
[2020-08-22 10:47] VITALS: BMI 27.9
[2021-11-27 09:07] LABS: Erythrocyte Sedimentation Rate 1 mm/hr (0-20)
[2021-11-27 09:09] LABS: Absolute Lymphocyte Count 2.31 X10^3/uL (0.83-4.51); Absolute Neutrophil Count 4.6 X10^3/uL (2.0-7.7); Basophil# 0.03 X10^3/uL; Basophil% 0.4 % (0-1); Eosinophils% 1.3 % (0-5); Hematocrit 43.4 % (40-54); Hemoglobin 15.1 g/dL (13.0-16.5); Lymphocyte # 2.31 X10^3/ul (0.83-4.51); Lymphocyte % 29.7 % (19-41); Mean Corp Hgb Conc 34.8 g/dL (32-36); Mean Corpuscular Hgb 30.8 pg (27.0-32.0); Mean Corpuscular Volume 88.6 fL (80-94); Mean Platelet Vol. 10.4 fl (6.2-12.0); Monocyte# 0.74 X10^3/uL; Monocyte% 9.5 % (0-10); NRBC Flagged by Analyzer 0 % (0-5); Neutrophil # 4.57 X10^3/uL (2.7-7.7); Neutrophil % 58.6 % (47-70); Platelet Count 221 K/mm3 (150-450); RBC Distribution Width CV 12.9 % (11.6-14.6); RBC Distribution Width SD 41.8 fl (35.1-43.9); White Blood Count 7.8 K/mm3 (4.4-11.0)
[2021-11-27 09:34] LABS: ALB/GLOB Ratio 1.1 RATIO (0.9-2.4); AST(SGOT) 37 U/L (15-37); Alanine Aminotransfer ALT/SGPT 98 U/L (16-61); Albumin, Serum 3.8 g/dL (3.2-5.0); Alkaline Phosphatase 52 U/L (45-117); Anion Gap 4 (5-15); BUN 18 mg/dL (7-18); BUN/Creat Ratio 17.8 RATIO (10-20); CRP < 2.90 mg/L (0.0-3.0); Calcium,Total 9.2 mg/dL (8.5-10.1); Chloride 106 mmol/L (98-107); Creatinine, Serum 1.01 mg/dL (0.70-1.30); EST Glomerular Filtration Rate 78 mL/min (>60); Est Glom Filt Rate - Afr Amer 95 mL/min (>60); Globulin 3.4 g/dL (2.2-4.2); Glucose 101 mg/dL (74-106); LDH 165 U/L (87-241); Potassium 3.9 mmol/L (3.5-5.1); Protein, Total 7.2 g/dL (6.4-8.2); Sodium Level 140 mmol/L (136-145)
[2021-11-28 13:08] LABS: Anti-Centromere B Ab <0.2 AI (0.0-0.9); Anti-Chromatin <0.2 AI (0.0-0.9); Anti-Jo <0.2 AI (0.0-0.9); Anti-Scleroderma-70 AB <0.2 AI (0.0-0.9); RNP Ab <0.2 AI (0.0-0.9); SJOGREN'S Anti-SS-A test < 0.2 AI (0.0-0.9); SJOGREN'S Anti-SS-B test < 0.2 AI (0.0-0.9); Smith Ab <0.2 AI (0.0-0.9)
[2021-11-28 15:59] LABS: Anti-dsDNA Ab <1 IU/mL (0-9)
[2021-12-05 11:08] LABS: Albumin 3.9 g/dL (2.9-4.4); Alpha-1-Globulins 0.2 g/dL (0.0-0.4); Alpha-2-Globulins 0.9 g/dL (0.4-1.0); Cytoplasmic Ab (C-ANCA) <1:20 titer (Neg:<1:20); Endomysial Antibody IgA Negative (Negative); Immunoglobulin A 146 mg/dL (61-437); Immunoglobulin E 20 IU/mL (6-495); Immunoglobulin G 856 mg/dL (603-1613); Immunoglobulin M 69 mg/dL (20-172); PROEL- TOTAL PROTEIN 6.9 g/dL (6.0-8.5)
[2021-12-05 12:55] LABS: Perinuclear Ab (P-ANCA) <1:20 titer (Neg:<1:20); t-Transglutaminase IgA <2 U/mL (0-3)
== END 2021-11-27 23:59 | disposition home or self-care (01) ==
LOC: LAB 08:47
PROVIDERS: PCP Family Medicine; Referring Provider Internal Medicine Gastroenterology; Visit Provider Internal Medicine Gastroenterology
DX: R19.7 Diarrhea, unspecified (principal)
CPT/HCPCS: 36415; 80053; 82784; 82785; 83516; 83615; 84165; 85025; 85652; 86140; 86225; 86235; 86255; 86256; 86334

== ENCOUNTER → 2021-12-02 | Outpatient (CLI) | payer MEDICARE, BC, SELFPAY ==
[2020-08-22 10:47] VITALS: BMI 27.9
[2021-12-03 19:26] LABS: Giardia Lamblia, Stool EIA Negative (Negative)
[2021-12-05 18:11] LABS: Fats, Neutral Normal (.); Fats, Total Normal (.)
== END | disposition home or self-care (01) ==
LOC: LAB 09:20 → LABSPEC 09:21
PROVIDERS: PCP Family Medicine; Referring Provider Internal Medicine Gastroenterology; Visit Provider Internal Medicine Gastroenterology
DX: R19.7 Diarrhea, unspecified (principal)
CPT/HCPCS: 82705; 83630; 87177; 87209; 87329; 87506

== ENCOUNTER → 2022-04-08 | Outpatient (CLI) | payer MEDICARE, BC, SELFPAY ==
[2020-08-22 10:47] VITALS: BMI 27.9
[2022-04-08 08:21] LABS: AST(SGOT) 18 U/L (15-37); Alanine Aminotransfer ALT/SGPT 30 U/L (16-61); Albumin, Serum 4.1 g/dL (3.2-5.0); Alkaline Phosphatase 51 U/L (45-117); Bilirubin, Direct 0.16 mg/dL (0.00-0.30); Cholesterol 169 mg/dL (200); Globulin 3.3 g/dL (2.2-4.2); High Density Lipoprotein 44 mg/dL; Protein, Total 7.4 g/dL (6.4-8.2); Triglycerides 169 mg/dL; Very Low Density Lipoprotein 34 mg/dL (5-40)
== END | disposition home or self-care (01) ==
LOC: LAB 06:56
PROVIDERS: PCP Family Medicine; Referring Provider Internal Medicine Cardiovascular Disease; Visit Provider Internal Medicine Cardiovascular Disease
DX: E78.00 Pure hypercholesterolemia, unspecified (principal)
CPT/HCPCS: 36415; 80061; 80076

== ENCOUNTER → 2022-06-09 | Outpatient (CLI) | payer MEDICARE, BC, SELFPAY ==
[2020-08-22 10:47] VITALS: BMI 27.9
== END | disposition home or self-care (01) ==
LOC: LAB 08:50
PROVIDERS: PCP Family Medicine; Referring Provider Urology; Visit Provider Urology
DX: E29.1 Testicular hypofunction (principal)
CPT/HCPCS: 36415; 84403

== ENCOUNTER → 2022-10-09 | Outpatient (CLI) | payer MEDICARE, BC, SELFPAY ==
[2020-08-22 10:47] VITALS: BMI 27.9
[2022-10-09 09:19] LABS: AST(SGOT) 30 U/L (15-37); Alanine Aminotransfer ALT/SGPT 41 U/L (16-61); Alkaline Phosphatase 60 U/L (45-117); Bilirubin, Direct 0.22 mg/dL (0.00-0.30); Cholesterol 156 mg/dL (200); Globulin 3.2 g/dL (2.2-4.2); High Density Lipoprotein 37 mg/dL; Protein, Total 7.2 g/dL (6.4-8.2); Triglycerides 117 mg/dL; Very Low Density Lipoprotein 23 mg/dL (5-40)
== END | disposition home or self-care (01) ==
LOC: LAB 07:49
PROVIDERS: PCP Family Medicine; Referring Provider Internal Medicine Cardiovascular Disease; Visit Provider Internal Medicine Cardiovascular Disease
DX: E78.00 Pure hypercholesterolemia, unspecified (principal); E78.5 Hyperlipidemia, unspecified
CPT/HCPCS: 36415; 80061; 80076

== ENCOUNTER → 2022-12-07 | Outpatient (CLI) | payer MEDICARE, BC, SELFPAY ==
[2020-08-22 10:47] VITALS: BMI 27.9
--- NOTE | 2022-12-07 11:26 | STRESSREP ---
Stress Test Report Exercise myocardial perfusion stress test. 67-year-old man with a history of dyspnea on exertion Stress protocol: Resting EKG demonstrates normal sinus rhythm with a rate of 62 bpm with lateral T wave inversions. resting blood pressure is 124/72 mmHg. The patient exercised according to the regular Mo protocol for a total duration of 9 minutes and 30 seconds attaining a maximum heart rate of 130 bpm which was 86% of maximum predicted heart rate; the maximum workload was 11.7 metabolic equivalents. At rest there were no ST or T wave changes noted to suggest ischemia and at peak exercise upsloping ST changes only were noted which did not meet the criteria for ischemia. No clinical angina was noted the test was terminated due to the target heart rate being achieved/fatigue. The peak blood pressure was 162/80 mmHg. Rate-pressure product was 19,600. Myocardial perfusion protocol. 14.2 mCi of technetium 99m sestamibi was injected at rest. The patient exercised according to regular Mo protocol for total duration of 9 minutes and 30 seconds and at peak exercise 44.3 mCi of technetium 99m sestamibi was injected stress images were obtained stress and rest images were reconstructed in comparing the short axis vertical long and horizontal long axis. Gated images were also obtained. Perfusion SPECT analysis: Review of the stress images demonstrate normal uptake of tracer noted in all areas of the myocardium except for the apex with a fixed defect. The resting images similarly demonstrate normal uptake of tracer noted in all areas of the myocardium except for the apex which has a fixed defect. No areas of reversibility are noted to suggest ischemia at a previous apical infarct and anterior apical infarct is present. Gated SPECT analysis: The gated ejection fraction is 48% with apical hypokinesis. Conclusion: Normal exercise myocardial perfusion stress test at a high workload Reduced ejection fraction. Previous apical infarct is present.
== END | disposition home or self-care (01) ==
LOC: CVS 06:15
PROVIDERS: PCP Family Medicine; Referring Provider Nurse Practitioner Family; Visit Provider Nurse Practitioner Family
DX: R06.02 Shortness of breath (principal); R06.09 Other forms of dyspnea; I25.10 Atherosclerotic heart disease of native coronary artery without angina pectoris; I25.2 Old myocardial infarction; Z95.5 Presence of coronary angioplasty implant and graft
CPT/HCPCS: 78452; 93017; A9500; A4216

== ENCOUNTER → 2022-12-12 | Outpatient (CLI) | payer MEDICARE, BC, SELFPAY ==
[2020-08-22 10:47] VITALS: BMI 27.9
[2022-12-12 09:53] LABS: Anion Gap 6 (5-15); BUN 16 mg/dL (7-18); BUN/Creat Ratio 15.2 RATIO (10-20); Calcium,Total 9.4 mg/dL (8.5-10.1); Chloride 107 mmol/L (98-107); Creatinine, Serum 1.05 mg/dL (0.70-1.30); EST Glomerular Filtration Rate 74 mL/min (>60); Est Glom Filt Rate - Afr Amer 90 mL/min (>60); Glucose 94 mg/dL (74-106); Potassium 4.3 mmol/L (3.5-5.1); Sodium Level 140 mmol/L (136-145)
[2022-12-12 09:54] LABS: BNP,B-Type NATRIURETIC PEPTIDE 59.4 pg/mL (0-100)
== END | disposition home or self-care (01) ==
LOC: LAB 08:46
PROVIDERS: PCP Family Medicine; Referring Provider Nurse Practitioner Family; Visit Provider Nurse Practitioner Family
DX: R06.09 Other forms of dyspnea (principal); I25.5 Ischemic cardiomyopathy; I25.10 Atherosclerotic heart disease of native coronary artery without angina pectoris; R05.3 Chronic cough
CPT/HCPCS: 36415; 80048; 83880

== ENCOUNTER → 2022-12-25 | Outpatient (CLI) | payer MEDICARE, BC, SELFPAY ==
[2020-08-22 10:47] VITALS: BMI 27.9
--- NOTE | 2022-12-25 09:40 | ECHOD_ITS ---
Reason For Study: CHF Procedure This was a 2D Doppler, Color Flow transthoracic echocardiogram. Exam performed in department. Left Ventricle Normal LV size. Left ventricular systolic function is lower limits of normal. The estimated ejection fraction is 45 %. Stage 2 diastolic dysfunction. Jolo : Akinetic. Right Ventricle Normal RV size. Normal systolic function. Atria Normal left atrium. Normal right atrium. Mitral Valve Normal mitral valve. Mild (1+) eccentric mitral valve insufficiency. Tricuspid Valve Normal tricuspid valve. Mild tricuspid valve insufficiency. Pulmonary artery systolic pressure is 28 mmHg. Aortic Valve Trisinus/trileaflet aortic valve. Pulmonic Valve Normal pulmonic valve. Great Vessels Normal aortic root. The pulmonary artery is normal size. Normal inferior vena cava. Pericardium/Pleural No pericardial effusion. MMode/2D Measurements & Calculations LVIDd: 4.8 cm IVSd: 1.2 cm Ao root diam: 3.3 cm LVIDs: 3.5 cm LVPWd: 1.1 cm LA dimension: 4.2 cm RVDd: 3.7 cm FS: 28.0 % LAV(MOD-bp): 56.7 ml LVAd ap4: 40.2 cm2 LVAd ap2: 36.7 cm2 LAV(MOD-bp) Indexed: 26.1 ml/m2 LVLd ap4: 8.6 cm LVLd ap2: 8.4 cm LAV(MOD-sp2): 71.6 ml EDV(MOD-sp4): 151.3 ml EDV(MOD-sp2): 132.0 ml LAV(MOD-sp4): 42.9 ml EDV(sp4-el): 158.7 ml EDV(sp2-el): 135.3 ml LVAs ap4: 29.5 cm2 LVAs ap2: 27.4 cm2 LVLs ap4: 8.0 cm LVLs ap2: 8.3 cm ESV(MOD-sp4): 86.1 ml ESV(MOD-sp2): 73.6 ml ESV(sp4-el): 91.9 ml ESV(sp2-el): 76.6 ml EF(MOD-sp4): 43.1 % EF(MOD-sp2): 44.2 % EF(sp4-el): 42.1 % SV(MOD-sp4): 65.2 ml SV(MOD-sp2): 58.3 ml SV(sp4-el): 66.9 ml LA A4 area: 17.0 cm2 RA A4 area: 16.8 cm2 Time Measurements MV dec time: 0.17 sec Doppler Measurements & Calculations MV E max tommy: 68.9 cm/sec Lat Peak E' Tommy: 7.9 cm/sec Med Peak E' Tommy: 6.4 cm/sec MV A max tommy: 59.8 cm/sec E/E' lat: 8.7 E/E' med: 10.8 MV E/A: 1.2 MV V2 max: 75.2 cm/sec MV P1/2t max tommy: 71.2 cm/sec Ao V2 max: 124.7 cm/sec MV max P.3 mmHg MV P1/2t: 63.3 msec Ao max P.2 mmHg MV V2 mean: 45.1 cm/sec MV dec slope: 329.4 cm/sec2 Ao V2 mean: 92.2 cm/sec MV mean P.94 mmHg Ao mean P.8 mmHg MV V2 VTI: 25.3 cm MVA(P1/2t): 3.5 cm2 Ao V2 VTI: 30.4 cm AV (velocity ratio): 0.73 LV V1 max: 96.3 cm/sec MR max tommy: 548.6 cm/sec PA V2 max: 100.4 cm/sec LV V1 max P.7 mmHg MR max P.4 mmHg PA V2 mean: 72.1 cm/sec LV V1 mean P.2 mmHg MR mean tommy: 420.6 cm/sec LV V1 mean: 70.5 cm/sec MR mean P.5 mmHg LV V1 VTI: 22.1 cm MR VTI: 208.4 cm TR max tommy: 245.2 cm/sec TR max P.1 mmHg ECHO/Echo Complete Interpretation Summary Normal LV size. Left ventricular systolic function is lower limits of normal. The estimated ejection fraction is 45 %. Stage 2 diastolic dysfunction. Structurally normal valves. Ordering Physician: Jah Parham Referring Physician: Roney De La Garza Performed By: Blanco Mcleod RCS
== END | disposition home or self-care (01) ==
LOC: CVS 09:39
PROVIDERS: PCP Family Medicine; Referring Provider Nurse Practitioner Family; Visit Provider Nurse Practitioner Family
DX: R06.09 Other forms of dyspnea (principal); R05.3 Chronic cough; I25.5 Ischemic cardiomyopathy
CPT/HCPCS: 93306

== ENCOUNTER → 2023-05-29 | Outpatient (CLI) | payer MEDICARE, BC, SELFPAY ==
[2020-08-22 10:47] VITALS: BMI 27.9
[2023-05-29 09:02] LABS: AST(SGOT) 23 U/L (15-37); Alanine Aminotransfer ALT/SGPT 39 U/L (16-61); Albumin, Serum 3.9 g/dL (3.2-5.0); Alkaline Phosphatase 56 U/L (45-117); Bilirubin, Direct 0.26 mg/dL (0.00-0.30); Cholesterol 159 mg/dL (200); Globulin 3.4 g/dL (2.2-4.2); High Density Lipoprotein 54 mg/dL; Protein, Total 7.3 g/dL (6.4-8.2); Triglycerides 87 mg/dL; Very Low Density Lipoprotein 17 mg/dL (5-40)
== END | disposition home or self-care (01) ==
LOC: LAB 08:09
PROVIDERS: Internal Medicine Cardiovascular Disease; PCP Family Medicine; Referring Provider Nurse Practitioner Family; Visit Provider Nurse Practitioner Family
DX: E78.00 Pure hypercholesterolemia, unspecified (principal)
CPT/HCPCS: 36415; 80061; 80076

== ENCOUNTER → 2023-09-30 | Outpatient (CLI) | payer MEDICARE, BC, SELFPAY ==
[2020-08-22 10:47] VITALS: BMI 27.9
--- OUTSIDE RECORDS SUMMARY | 2023-09-30 18:39 | XMS RPT_ITS | CCD ---
Author Name Unknown Address [address] [place] [address] Organization [facility] Care Team Providers Care Rn Relief Charge Name Role Phone Ananth Hurd DO Unavailable Jane Kirk Unavailable Unavailable Alexandru Milligan MD Unavailable Joceline RN, Ambika Correia Unavailable Unavailable Lubna Cordoba Unavailable Unavailable Lubna Cordoba Unavailable Unavailable RONEY DE LA GARZA Admitting Unavailable RONEY DE LA GARZA Primary Care Unavailable RONEY DE LA GARZA Consulting Unavailable RONEY DE LA GARZA Attending Unavailable PROVIDER, UNKNOWN Consulting Unavailable PROVIDER, UNKNOWN Consulting Unavailable PROVIDER, UNKNOWN Consulting Unavailable Roney De La Garza MD Unavailable Dr. Eder Arguello MD ([facility]) Unavailable [phone] Dr. Gilbert Hurd MD Unavailable Dr. Zi Ibrahim DDS Unavailable Dr. Adrienne Sharma DPM Unavailable Dr. Tony Barnard DO Unavailable Friend, Dr. Enriquez Unavailable [facility] Unavailable Dr. Donald Fournier MD Unavailable Dr Alexandru Milligan MD Unavailable Dr. Ananth Hurd DO Unavailable Dr. Chino Brewer MD Unavailable Pearl Peters LPN Unavailable Nancy Cameron LPN Unavailable Unavailable Oliveira PRESENTATION MANAGER, Adrienne Unavailable Unavailable Rebecca AYOUB-C, Luke E Unavailable Rebecca, Chelo C Unavailable Unavailable Raheem PEDERSEN, Anabelle Unavailable Unavailable Amador PRESENTATION MANAGER, Blossom Unavailable Unavailable Narinder COPELAND, Marylou A Unavailable Unavaila jackie Phipps RN, Felisha Cameron Unavailable Unavailable Mutersbaugh PRESENTATION MANAGER, Joanne K Unavailable Unavai cesarle Deb PRESENTATION MANAGER, Maria E Roberson Unavailable Unavailab jeyson Leon MA, Blossom Unavailable Unavailable Vess PRESENTATION MANAGER, Neilee L Unavailable Unavailable Wengerd PRESENTATION MANAGER, Dottie Unavailable Unavailabl e Zaugg PRESENTATION MANAGER, Irena Unavailable Unavailable Unavailable Unavailable Medications Current Medications Medication Drug Class(es) Dates Sig (Normalized) Sig (Original) amLODIPine 10 mg oral tablet (3 sources) Dihydropyridine Calcium Channel Sonja take 1 tablet by mouth once daily amLODIPine Besylate 10 MG Oral Tablet ; 1 daily (10 MG) clopidogrel 75 mg oral tablet (3 sources) P2Y12 Platelet Inhibitor take 1 tablet by mouth once daily Plavix 75 MG Oral Tablet ; 1 daily (75 MG) ezetimibe 10 mg oral tablet (3 sources) Dietary Cholesterol Absorption Inhibitor take 1 tablet by mouth once daily Ezetimibe 10 MG Oral Tablet ; 1 daily (10 MG) losartan potassium 100 mg oral tablet (3 sources) Angiotensin 2 Receptor Sonja take 1 tablet by mouth once daily Losartan Potassium 100 MG Oral Tablet ; 1 daily (100 MG) nitroglycerin 0.4 mg sublingual tablet (13 sources) Nitrate Vasodilator Start: 12-30-2015 NITROSTAT, 0.4MG (Sublingual Tablet Sublingual) ; 1 (one) Tab Sublingual q 5minutes , up to 3 doses if needed for 0 days Quantity: 25 {Tablet} Refills: 5 Ordered: 01-Apr-2016 MD Roney De La Garza Start: 01-Apr-2016 omeprazole 20 mg delayed release oral capsule (6 sources) Proton Pump Inhibitor Start: 09-08-2023 omeprazole 20 mg capsule,delayed release ; 1 (one) Capsule qd for 0 days Quantity: 90 {Capsule} Refills: 3 Ordered: 08-Sep-2023 MD Roney De La Garza Start: 08-Sep-2023 Completed/Discontinued Medications Medication Drug Class(es) Dates Sig (Normalized) Sig (Original) acetaminophen 325 mg / HYDROcodone bitartrate 5 mg oral tablet (3 sources) Opioid Agonist Start: 10-02-2016 End: 10-07-2016 take 1 tablet by mouth every six hours as needed for pain Hydrocodone-Aceta minophen 5-325 MG Oral Tablet ; 1 (one) Tablet q 6hrs prn pain for 0 days Quantity: 20 {Tablet} Refills: 0 Ordered: 07-Oct-2016 MD Roney De La Garza Start: 02-Oct-2016 End: 07-Oct-2016 Status: Inactive Comments: OARRS 10/02/16 Problems Active Problems Problem Classification Problem Date Documented Da te Episodic/Chronic Acute myocardial infarction (8 sources) Myocardial infarction; Translations: [Non-ST elevation (NSTEMI) myocardial infarction] Onset: 6 12-30-2015 Chronic Biliary tract disease (6 sources) Disorder of gallbladder; Translations: [Disease of gallbladder, unspecified] 08-03-2023 Episodic Cardiac dysrhythmias (3 sources) Palpitations; Translations: [Palpitations] 08-06-2012 Episodic Coronary atherosclerosis and other heart disease (20 sources) Atherosclerotic heart disease of [place] coronary artery without angina pectoris; Translations: [Old myocardial infarction] Onset: 6 12-30-2015 Chronic Diseases of mouth; excluding dental (3 sources) Diseases of lips 06-19-2013 Episodic Disorders of lipid metabolism (5 sources) Hyperlipidemia; Translations: [Hyperlipidemia, unspecified] Onset: 6 06-02-2016 Chronic Esophageal disorders (20 sources) Gastroesophageal reflux disease; Translations: [Gastro-esophageal reflux disease without esophagitis] 08-03-2023 Chronic Essential hypertension (15 sources) Hypertensive disorder; Translations: [Essential (primary) hypertension] 08-03-2023 Chronic Hyperplasia of prostate (6 sources) Benign prostatic hypertrophy with outflow obstruction; Translations: [Benign prostatic hyperplasia with lower urinary tract symptoms] 08-03-2023 Chronic Immunizations and screening for infectious disease (20 sources) Needs influenza immunization; Translations: [Encounter for immunization] 05-11-2018 Episodic Malaise and fatigue (3 sources) Fatigue; Translations: [Other fatigue] 08-13-2014 Episodic Nonspecific chest pain (6 sources) Chest pain; Translations: [Chest pain, unspecified] 10-12-2017 Episodic Osteoarthritis (18 sources) Osteoarthritis of multiple joints ; Translations: [Polyosteoarthritis, unspecified] 08-03-2023 Chronic Other aftercare (6 sources) Drug indicated; Translations: [Other jail (current) drug therapy] 08-06-2012 Episodic Other circulatory disease (3 sources) Elevated blood-pressure reading without diagnosis of hypertension; Translations: [Elevated blood-pressure reading, without diagnosis of hypertension] 09-30-2016 Episodic Other congenital anomalies (1 source) Spondylolisthesis; Translations: [Spondylolisthesis, lumbar region] Onset: 7 11-12-2016 Chronic Other connective tissue disease (3 sources) Cramp in lower limb; Translations: [Sleep related leg cramps] 03-31-2017 Chronic Other connective tissue disease (3 sources) Rotator cuff impingement syndrome; Translations: [Unspecified rotator cuff tear or rupture of unspecified shoulder, not specified as traumatic] 09-01-2010 Episodic Other gastrointestinal disorders (9 sources) Irritable bowel syndrome; Translations: [Irritable bowel syndrome without diarrhea] 08-03-2023 Chronic Other inflammatory condition of skin (3 sources) Psoriasis; Translations: [Psoriasis, unspecified] 04-17-2015 Chronic Other lower respiratory disease (15 sources) Dyspnea; Translations: [Shortness of breath] 06-07-2020 Episodic Other nervous system disorders (6 sources) Neuropathy; Translations: [Polyneuropathy, unspecified] 08-03-2023 Chronic Other screening for suspected conditions (not mental disorders or infectious disease) (20 sources) Patient encounter status; Translations: [Encounter for screening for malignant neoplasm of prostate] 12-26-2019 Episodic Other skin disorders (3 sources) Seborrheic keratosis; Translations: [Other seborrheic keratosis] 08-06-2012 Episodic Other upper respiratory infections (12 sources) Sinusitis; Translations: [Chronic sinusitis, unspecified] 08-03-2023 Chronic Otitis media and related conditions (6 sources) Dysfunction of eustachian tube; Translations: [Unspecified Eustachian tube disorder, unspecified ear] 08-03-2023 Episodic Residual codes; unclassified (6 sources) Influenza vaccination declined; Translations: [Immunization not carried out because of patient refusal] 08-03-2023 Episodic Residual codes; unclassified (6 sources) Other specified health status; Translations: [Other drug allergy] 08-03-2023 Episodic Residual codes; unclassified (6 sources) Tobacco user; Translations: [Tobacco use] 08-03-2023 Episodic Screening or history of mental health and substance abuse (5 sources) Nicotine dependence, chewing tobacco, uncomplicated; Translations: [Nicotine dependence, chewing tobacco, uncomplicated] Onset: 6 01-02-2016 Chronic Spondylosis; intervertebral disc disorders; other back problems (20 sources) Disorder of lumbar disc; Translations: [Unspecified thoracic, thoracolumbar and lumbosacral intervertebral disc disorder] 08-03-2023 Chronic Spondylosis; intervertebral disc disorders; other back problems (13 sources) Spinal stenosis, lumbar region; Translations: [Spinal stenosis] Onset: 7 11-12-2016 Episodic Unclassified (3 sources) Placement of stent in coronary artery ; Translations: [Presence of coronary angioplasty implant and graft] Onset: 6 12-30-2015 Unclassified (3 sources) Preoperative cardiovascular examination ; Translations: [Encounter for preprocedural cardiovascular examination] Onset: 7 11-18-2016 Unclassified (2 sources) Long-term drug therapy; Translations: [Other jail (current) drug therapy] Onset: 6 06-02-2016 Unclassified (3 sources) Number of Children 09-29-2022 Past or Other Problems Problem Classification Problem Date Documented Date Episodic/Chronic Other aftercare (8 sources) Other press tender long goods (current) drug therapy; Translations: [Other jail (current) drug therapy] Onset: 12-30-2015 06-02-2016 Episodic Other nutritional; endocrine; and metabolic disorders (15 sources) Body mass index (BMI) 27.0-27.9, adult; Translations: [Body mass index (BMI) 26.0-26.9, adult] Onset: 01-02-2016 06-02-2016 Episodic Unclassified (1 source) History of operative procedure on lumbar spinal structure; Translations: [Arthrodesis status] Onset: 01-07-2017 01-07-2017 Episodic Unclassified (1 source) Problem Unclassified (3 sources) MCR Well Adult - In general the patient feels well with minor complaints (right knee pain), has good energy level and is sleeping well. The patient has a balanced diet. The patient does not exercise and sleeps 7 (8) hours per night. The patient denies having trouble with bathing, dressing/grooming, toileting, preparing meals and ambulating. The patient denies having trouble with grocery shopping, driving, use of telephone, housework, laundry, preparing/taking medications and finances. Note for [facility] Well Adult : C/O pain in Right knee, would like it injected again 08-03-2023 Unclassified (3 sources) Cold Symptoms - Symptoms include nasal congestion, runny nose, ear fullness (right ear), productive cough (yellow/green) and facial pain, but do not include sneezing, non-purulent sputum, purulent discharge, ear pain, sore throat, scratchy throat, hoarseness, dry cough, wheezing, fever, chills, general malaise or headache. The onset was gradual 4 day(s) ago. The symptoms occur constantly. The patient describes this as mild and unchanged. The patient is not currently being treated for this problem. Risk factors do not include child in daycare or smoking. The patient has been exposed to an individual with similar symptoms. Patient denies history of seasonal allergies, recurrent sinusitis, recurrent strep pharyngitis, asthma, tonsillectomy or recurrent ear infections. Note for Upper respiratory infection : rattle in chestwanting to see grandkid and wants to make sure hes okay 09-29-2022 Unclassified (3 sources) [facility] Well Adult - In general the patient feels well with minor complaints (complains of joint pain.), has decreased energy level and is sleeping well. The patient has a balanced diet and takes supplemental vitamins. The patient does not exercise and sleeps 7 hours per night. The patient denies having trouble with bathing, dressing/grooming, toileting, preparing meals and ambulating. The patient denies having trouble with grocery shopping, driving, use of telephone, housework, laundry, preparing/taking medications and finances. The patient has a Healthcare Power of Utility Sales Representative and a Living Will. Note for [facility] Well Adult : reviewed by [facility] 05-11-2022 Unclassified (3 sources) Cold Symptoms - Symptoms include nasal congestion, ear pain, ear fullness, general malaise and headache (pressure in his head), but do not include scratchy throat (was sore but not anymore). The onset was gradual 10 day(s) ago. The symptoms occur constantly. The patient describes this as moderate in severity and worsening. Current treatment includes acetaminophen. Risk factors do not include smoking. The patient has not been exposed to an individual with a cough, an individual with an upper respiratory infection, an individual with similar symptoms, an individual with strep or secondhand smoke. Medical history includes seasonal allergies and tonsillectomy, but patient denies history of recurrent sinusitis, recurrent strep pharyngitis, asthma or recurrent ear infections. Note for Upper respiratory infection : seems to mess with his balance a little bit reviewed by B 03-18-2022 Unclassified (3 sources) IBS and knee issues - per pt he sold his truck which had a toilet in it and he said he is planning to get a new job the first of the year but due to his IBS which he said you called it that years ago, he is constantly going to the bathroomthe last 2 days he has been constipated but then will get bad diarrhea and there's always yellow oily stuff at the end of his BMpt tries to increase his fiber but he feels like he is going more frequently pt got his right knee injected 05/2020 but over the last 4 months it has been getting worse , would like reinjected. 08-06-2021 Unclassified (3 sources) Knee pain - The knee pain has been occurring for years (2-3 years). The knee pain is in both knees (the worse pain is of the right knee). The knee pain is characterized as a sharp stabbing. The knee pain is described as being located in the medial knee (lower anterior knee). Note for Knee pain : Patient is here today for joint injection of the right knee.Been doing cardiac rehab 3x/week for 2 weeks, his knee pain has improved some. 06-07-2020 Unclassified (3 sources) Follow up from hospital stay - Name of Hospital: [facility]. Date of Admission: 05/11/2020. Date of Discharge: 05/12/2020. The patient was hospitalized for NSTEMI. New medications include Brilinta 90mg daily. Consultations ordered while in the hospital include cardiology. Patient was discharged to home. Current Symptoms: SOB, Fatigue-is improving. Note for Follow up from hospital stay : Will be start cardiac rehab at [facility] heart group. He had an elevated Troponin, went to cath but no critical lesions noted. Possibly vasospasm vs a clot that resolved 05-24-2020 Unclassified (3 sources) [ADDITIONAL REASON] Transition into care - The patient is transitioning into care from a hospital ([facility] 05/11 to 05/12/2020) and a summary of care was reviewed. 05-24-2020 Unclassified (3 sources) Warts - Current treatment includes OTC topical treatments. The warts are located on the left foot. Onset was sudden 2 month(s) ago. The patient describes this as moderate in severity and worsening. Associated symptoms include pain. Note for Warts : reviewed by [facility] 08-01-2019 Unclassified (3 sources) MCR Well Adult - In general the patient feels well with minor complaints (joint aches), has decreased energy level and is sleeping well. The patient has a balanced diet and takes no supplemental vitamins & iron. The patient does not exercise and sleeps 7 (7-8 hours a night) hours per night. The patient denies having trouble with bathing, dressing/grooming, toileting, preparing meals and ambulating. The patient denies having trouble with grocery shopping, driving, use of telephone, housework, laundry, preparing/taking medications and finances. The patient has a Healthcare Power of Utility Sales Representative and a Living Will. Note for [facility] Well Adult : Labs printed to review today. 06-26-2019 Unclassified (3 sources) [ADDITIONAL REASON] Transition into care - The patient is transitioning into care from another physician (Medical Doctor 02/16/2019, Jah Parham WEB MARKETING MANAGER) and a summary of care was reviewed. 06-26-2019 Unclassified (3 sources) Cold Symptoms - Symptoms include nasal congestion, sore throat, scratchy throat, hoarseness, dry cough, productive cough, fever, chills, general malaise, headache and facial pain, but do not include ear pain. The onset was sudden 4 day(s) ago. The symptoms occur constantly. The patient describes this as moderate in severity and worsening. Current treatment includes non-prescription cold medication (coricidin). Risk factors do not include smoking. The patient has not been exposed to an individual with a cough or an individual with similar symptoms. Note for Upper respiratory infection : Temp was about 100 10-29-2018 Unclassified (3 sources) Weakness - The onset of the weakness has been gradual and has been occurring in a persistent (comes and goes all day long) pattern for 6 months. The course has been increasing. The weakness is located in the legs. The weakness is on the right more than the left. The symptoms have been associated with muscle twitching, Raynaud's phenomenon and tingling. Note for Weakness : patient said sensation feels like a tapping in entire right leg, bottom of left leg and left arm.concerned due to having 3 people in family with parkinsons disease R leg was very painful in past beofre his back surgery. 03-07-2018 Unclassified (3 sources) Follow up consultation - The patient is here to follow-up after hospitalization ([facility] with atypical chest pain.) on : (09-26-17 to 09-27-17). Note for Consultation follow-up : Continues with occasion chest pain and pressure. Cardiac eval all normal. he was told in past he had gallstones but never had it removed. 10-06-2017 Unclassified (3 sources) Chest pain - The onset of the pain has been sudden and has been occurring in an increasing pattern for 8 months. The pain is described as a moderate dull ache and sharp pain. The pain is described as being located in the right chest and epigastrium and does not radiate. There are no precipitating factors. The symptoms have no aggravating factors. The symptoms have no relieving factors. There has been no associated abdominal pain or nausea. Note for Chest pain : Patient has nitro at home for when needed but hasn't taken any for this pain. Patient does no believe it is cardiac related. He has a cardiac hx but is UTD with testing . Sx are not exertional, hurts more when empty, better if he eats. 03-04-2017 Unclassified (3 sources) Preoperative Clearance - Date of procedure: (12-21-16) Surgeon: (Dr Roney Hurd) and Location of procedure: ([facility]) Note for Pre-operative clearance : Back surgery. He just saw cardiology and states he had a stress ECHO and was normal . 12-08-2016 Unclassified (3 sources) Back pain - Note for Back pain : Saw Dr Barnard yesterday and was not happy with office visit. Would like to discuss another referral. 10-14-2016 Unclassified (3 sources) Back pain - The onset of the back pain has been acute and has been occurring in an intermittent pattern for 1 year. The course has been increasing. The pain is characterized as stabbing. The pain is located in the lower back and radiates to the right thigh and left thigh. There are no precipitating factors. The pain has been associated with hip pain. Note for Back pain : He stopped statin drug which helped but not 100%. He had therapy for his back many years ago. 07-01-2016 Unclassified (3 sources) Follow up consultation - The patient is here to follow-up after hospitalization on : (12-26-15 to 12-28-15.). Note for Consultation follow-up : Pt had a STEMI. He had 1 stesnt placed. EF 45-50% initially. Following up w Dr Milligan. 01-03-2016 Unclassified (3 sources) [ADDITIONAL REASON] Transition into care - The patient is transitioning into care from a hospital and a summary of care was reviewed . 01-03-2016 Unclassified (3 sources) Rash - The onset of the rash has been acute and has been occurring in a persistent pattern for 2 years. The course has been increasing. The rash is characterized as crusty and weeping. Note for Rash : Located in both ears. reviewed by [facility] 04-17-2015 Unclassified (3 sources) Shortness of breath - Shortness of breath with exertion for the past year. No cough. No chest pain. ( also, Is fasting today and would like to have blood work ) 08-13-2014 Unclassified (3 sources) Check Lump - Pt here this morning because he concerned about a lump on inside lower lip. He noticed it about 1 month ago that will come and go. It is not sore or tender. Says it feels like it is about the size of a BB. He can feel it but hard to see. He has been a Snuff chewer for years and so this is a concern to him. reviewed by [facility] 06-19-2013 Unclassified (3 sources) Well Adult, male - The patient feels well with no complaints. The patient is not using any method of contraception at this time. Patient has not had bone density screening. Date of most recent cholesterol screening : (10/21/10 but would like fasting labs done today.). Date of most recent glucose screening : (10/21/10 and result was 107). Patient has not had a Zostavax vaccine. Patient has not had a Pneumovax vaccine. Patient has not received a recent influenza vaccine. Last Tetanus booster: Date: (09/02/12). The patient has a balanced diet and takes supplemental vitamins (Takes glucosamine, maggi red fish oil caps and vitamin). The patient does not exercise. The patient sleeps 8 hours per night. 11-04-2012 Unclassified (3 sources) Chest pain - Complains of occasional chest pain and mid back pain and occasional left arm pain. Also would like to have a couple of skin lesions on face checked. The CP he describes as a sensation of food sliding by , this pain only occurs when eating and doesn't seem to get stuck.H dipikao gets some flutterring sensation at times in chest, not exertional though. He had a stress test that was normal a few years ago but does have strong cardiac family history.He also c/o fatigue ,unrefreshed sleep. 08-06-2012 Unclassified (3 sources) Form Completion Physicals - The patient feels well with no complaints, has good energy level and is sleeping well. Current symptoms include back pain (occasional). The patient exercises daily. The patient has an appropriate balanced diet (lost 25 lbs in past year) and sleeps on average 7 hours per night. Habits include alcohol, caffeine and tobacco use. Safety measures include appropriate use of safety belts. Last tetanus vaccination: more than 10 year(s) ago. 10-21-2010 Unclassified (3 sources) Shoulder Pain - The onset of the shoulder pain has been gradual following no specific incident and has been occurring in a persistent pattern for 3 months. The course has been gradually worsening. The shoulder pain is characterized as a moderate dull aching. The shoulder pain is described as being located in the left shoulder. The shoulder pain is aggravated by any movement. Note for Shoulder Pain : awakens him at night, worse with reaching up. 09-01-2010 Results Test Name Value Interpretation Reference Range Facil ity Vital Signs Date Time Vital Sign Value Performing Clinician Faci [email or web address] 08-03-2023 15:02-0500 Body height 181.61 cm Roney De La Garza MD Work Phone: [email or web address]; [employer] 08-03-2023 15:02-0500 Body mass index (BMI) [Ratio] 28.61 kg/m2 Roney De La Garza MD Work Phone: [employer] 08-03-2023 15:02-0500 Body surface area Derived from formula 2.16 m2 Roney De La Garza MD Work Phone: [employer] 08-03-2023 15:02-0500 Body weight 94.35 kg Roney De La Garza MD Work Phone: [employer] 08-03-2023 15:02-0500 Diastolic blood pressure 76 mm[Hg] Rnoey De La Garza MD Work Phone: [email or web address]; [email or web address] Encounters Encounter Date Encounter Type Care Provider Facility Start: 08-03-2023 End: 08-03-2023 Patient encounter procedure Blossom English LPN [email or web address]; [employer]. Start: 08-03-2023 End: 08-03-2023 Periodic preventive med est patient 65yrs& older Roney De La Garza MD Work Phone: [email or web address] Start: 09-29-2022 End: 09-29-2022 Office outpatient visit 15 minutes Roney De La Garza MD Work Phone: [employer]. Start: 05-21-2022 End: 05-21-2022 Orders Roney De La Garza MD Work Phone: [employer]. Start: 05-11-2022 End: 05-11-2022 Initial preventive medicine new patient 63yrs&> Roney De La Garza MD Work Phone: [email or web address] Start: 05-11-2022 End: 05-11-2022 Patient encounter procedure Roney De La Garza MD Work Phone: [email or web address]; [employer]. Start: 05-04-2022 End: 05-04-2022 Orders Roney De La Garza MD Work Phone: [email or web address] Start: 04-09-2022 End: 04-10-2022 Orders Roney De La Garza MD Work Phone: [email or web address] Start: 03-18-2022 End: 03-18-2022 Office outpatient visit 15 minutes Roney De La Garza MD Work Phone: [employer]. Start: 11-06-2021 End: 11-06-2021 Admission to establishment Roney De La Garza MD Work Phone: [email or web address] Start: 08-06-2021 End: 08-06-2021 ambulatory RONEY DE LA GARZA [facility] Start: 08-06-2021 End: 08-06-2021 Patient encounter procedure Roney De La Garza MD Work Phone: [email or web address] Start: 06-07-2020 End: 06-07-2020 Patient encounter procedure Roney De La Garza MD Work Phone: [email or web address] Start: 05-24-2020 End: 05-24-2020 Office outpatient visit 15 minutes Roney De La Garza MD Work Phone: [email or web address] Start: 12-26-2019 End: 12-26-2019 Office outpatient visit 25 minutes Roney De La Garza MD Work Phone: [email or web address] Start: 08-01-2019 End: 08-01-2019 Office outpatient visit 15 minutes Roney De La Garza MD Work Phone: [email or web address] Start: 06-26-2019 End: 06-26-2019 Periodic preventive med est patient 65yrs& older Roney De La Garza MD Work Phone: [employer]. Start: 06-26-2019 End: 06-26-2019 Physical examination Roney De La Garza MD Work Phone: [email or web address]; [employer]. Start: 06-21-2019 End: 06-21-2019 Orders Roney De La Garza MD Work Phone: [email or web address] Start: 06-02-2019 End: 06-02-2019 Orders Roney De La Garza MD Work Phone: [employer]. Start: 06-29-2018 End: 06-29-2018 Medication Roney De La Garza MD Work Phone: [employer]. Start: 06-06-2018 End: 06-06-2018 Office outpatient visit 15 minutes Roney De La Garza MD Work Phone: [employer]. Start: 05-18-2018 End: 05-18-2018 Medication Roney De La Garza MD Work Phone: [employer]. Start: 05-11-2018 End: 05-12-2018 Orders Roney De La Garza MD Work Phone: [employer]. Start: 03-07-2018 End: 03-07-2018 Office outpatient visit 15 minutes Roney De La Garza MD Work Phone: [employer]. Start: 12-14-2017 End: 12-14-2017 Patient encounter procedure Ananth Hurd DO Work Phone: [facility] Work Phone: Start: 10-18-2017 End: 10-18-2017 Orders Roney De La Garza MD Work Phone: [employer]. Start: 10-12-2017 End: 10-12-2017 Orders Roney De La Garza MD Work Phone: [employer]. Start: 10-06-2017 End: 10-06-2017 Office outpatient visit 15 minutes Roney De La Garza MD Work Phone: [employer]. Start: 10-05-2017 End: 10-05-2017 Historical Summary Roney De La Garza MD Work Phone: [employer]. Start: 09-28-2017 End: 09-28-2017 Telephone follow-up Roney De La Garza MD Work Phone: [email or web address] Start: 03-31-2017 End: 03-31-2017 Patient encounter procedure Roney De La Garaz MD Work Phone: [employer]. Start: 03-24-2017 End: 03-24-2017 Orders Roney De La Garza MD Work Phone: [employer]. Start: 03-04-2017 End: 03-04-2017 Office outpatient visit 15 minutes Roney De La Garza MD Work Phone: [employer]. Start: 12-08-2016 End: 12-08-2016 Office outpatient visit 15 minutes Roney De La Garza MD Work Phone: [employer]. Start: 12-08-2016 End: 12-08-2016 Preprocedural examination done Roney De La Garza MD Work Phone: [employer] Start: 10-14-2016 End: 10-14-2016 Office outpatient visit 15 minutes Roney De La Garza MD Work Phone: [employer]. Start: 10-07-2016 End: 10-07-2016 Medication Roney De La Garza MD Work Phone: [employer]. Start: 10-06-2016 End: 10-06-2016 Orders Roney De La Garza MD Work Phone: [employer]. Start: 10-02-2016 End: 10-02-2016 Medication Roney De La Garza MD Work Phone: [employer]. Start: 09-30-2016 End: 09-30-2016 Patient encounter procedure Roney De La Garza MD Work Phone: [employer]. Start: 09-24-2016 End: 09-24-2016 Orders Roney De La Garza MD Work Phone: [employer]. Start: 09-02-2016 End: 09-02-2016 Orders Roney De La Garza MD Work Phone: [employer]. Start: 07-01-2016 End: 07-01-2016 Patient encounter procedure Roney De La Garza MD Work Phone: [employer]. Start: 04-01-2016 End: 04-01-2016 Office outpatient visit 15 minutes Roney De La Garza MD Work Phone: [email or web address] Start: 01-03-2016 End: 01-03-2016 Office outpatient visit 15 minutes Roney De La Garza MD Work Phone: [email or web address] Start: 04-17-2015 End: 04-17-2015 Office outpatient visit 15 minutes Roney De La Garza MD Work Phone: [employer]. Start: 08-13-2014 End: 08-13-2014 Orders Roney De La Garza MD Work Phone: [employer]. Start: 08-13-2014 End: 08-13-2014 Office outpatient visit 15 minutes Roney De La Garza MD Work Phone: [email or web address] Start: 06-19-2013 End: 06-19-2013 Patient encounter procedure Roney De La Garza MD Work Phone: [email or web address] Start: 11-04-2012 End: 11-04-2012 Patient encounter procedure Roney De La Garza MD Work Phone: [email or web address] Start: 11-04-2012 End: 11-04-2012 Routine general medical examination at a [facility] Roney De La Garza MD Work Phone: [email or web address]; [employer]. Start: 11-01-2012 End: 11-01-2012 Historical Summary Roney De La Garza MD Work Phone: [email or web address] Start: 09-02-2012 End: 09-03-2012 Nursing evaluation of patient and report Roney De La Garza MD Work Phone: [email or web address] Start: 08-06-2012 End: 08-06-2012 Patient encounter procedure Roney De La Garza MD Work Phone: [email or web address] Start: 06-15-2011 End: 06-15-2011 Medication Roney De La Garza MD Work Phone: [employer]. Start: 10-21-2010 End: 10-21-2010 Patient encounter procedure Roney De La Garza MD Work Phone: [email or web address] Start: 10-21-2010 End: 10-21-2010 Routine general medical examination at a health care facility Roney De La [facility] MD [facility] Start: 09-01-2010 End: 09-01-2010 Patient encounter procedure Roney De La Garza MD Work Phone: [facility] Patient encounter procedure Roney De La Garza MD [facility] Procedures Date Procedure Procedure Detail Performing Clinician Start: 08-03-2023 End: 08-03-2023 Arthrocentesis aspir&/inj interm jt/burs w/o us Roney De La Garza MD Work Phone: Start: 08-03-2023 End: 08-03-2023 Adv care pln/ no alt dcsn mkr docd or refusal Roney De La Garza MD Work Phone: Start: 08-03-2023 End: 08-03-2023 Depression screening Roney De La Garza MD Work Phone: Start: 08-03-2023 End: 08-03-2023 Falls risk assessment documented Roney De La Garza MD Work Phone: Start: 08-03-2023 End: 08-03-2023 Flu imm no admin doc eduarda Roney Palmer Work Phone: Start: 08-03-2023 End: 08-03-2023 PPPS, subseq visit Roney De La Garza MD Work Phone: Start: 08-03-2023 End: 08-03-2023 Pt falls assess docd w/o fall/injury past year Roney De La Garza MD Work Phone: Start: 08-03-2023 End: 08-03-2023 Scr dep neg, no plan reqd Roney De La Garza MD Work Phone: Start: 05-29-2023 End: 05-29-2023 Lipid panel Blossom English LPN Plan of Treatment Date Care Activity Detail Author Start: 02-07-2018 End: 02-07-2018 Appointment Appointment [facility] Work Phone: Start: 12-14-2017 End: 12-14-2017 Appointment Appointment [facility] Work Phone: Start: 12-14-2017 End: 12-14-2017 X-ray exam of lower spine XR LUMBAR [id number] FLEX/EX [facility] Work Phone: Start: 08-18-2017 End: 02-24-2017 *Hepatic Function Panel *Hepatic Function Panel [facility] Work Phone: Start: 08-18-2017 End: 02-24-2017 Lipid 1996 panel *Lipid Profile CC PCP [facility] Work Phone: Start: 08-18-2017 End: 08-19-2017 *Hepatic Function Panel *Hepatic Function Panel [facility] Work Phone: Start: 08-18-2017 End: 08-19-2017 Lipid panel [AGGREGATE] *Lipid Profile CC PCP [facility] Work Phone: Start: 05-28-2017 End: 05-28-2017 Appointment Appointment [facility] Work Phone: Start: 05-28-2017 End: 05-28-2017 Follow Up Appt 6 months Follow Up Appt 6 months [facility] Work Phone: Start: 05-28-2017 End: 05-28-2017 PFM PFM [facility] Work Phone: Start: 05-28-2017 End: 05-28-2017 Follow Up Appt 6 months Follow Up Appt 6 months [facility] Work Phone: Start: 05-28-2017 End: 05-28-2017 PFM PFM [facility] Work Phone: Start: 02-15-2017 End: 02-15-2017 *Hepatic Function Panel *Hepatic Function Panel [facility] Work Phone: Start: 02-15-2017 End: 02-15-2017 Lipid 1996 panel *Lipid Profile CC PCP [facility] Work Phone: Start: 02-15-2017 End: 02-15-2017 *Hepatic Function Panel *Hepatic Function Panel [facility] Work Phone: Start: 02-15-2017 End: 02-15-2017 Lipid panel [AGGREGATE] *Lipid Profile CC PCP [facility] Work Phone: Start: 11-18-2016 End: 11-18-2016 Ecg routine ecg w/least 12 lds w/i&r EKG (In office) [facility] Work Phone: Start: 11-18-2016 End: 11-18-2016 Echocardiography Echocardiogram (complete) [facility] Work Phone: Start: 11-18-2016 End: 11-18-2016 Follow Up Appt 6 months Follow Up Appt 6 months [facility] Work Phone: Start: 11-18-2016 End: 11-18-2016 MMM MMM [facility] Work Phone: Start: 11-18-2016 End: 11-19-2016 Echocardiography Echocardiogram (complete) [facility] Work Phone: Start: 11-18-2016 End: 11-18-2016 Electrocardiogram, complete EKG (In office) [facility] Work Phone: Start: 11-18-2016 End: 11-18-2016 Follow Up Appt 6 months Follow Up Appt 6 months [facility] Work Phone: Start: 11-18-2016 End: 11-18-2016 MMM MMM [facility] Work Phone: Start: 08-18-2016 End: 08-24-2016 *Hepatic Function Panel *Hepatic Function Panel [facility] Work Phone: Start: 08-18-2016 End: 08-24-2016 Lipid 1996 panel *Lipid Profile CC PCP [facility] Work Phone: Start: 08-18-2016 End: 08-24-2016 *Hepatic Function Panel *Hepatic Function Panel [facility] Work Phone: Start: 08-18-2016 End: 08-24-2016 Lipid panel [AGGREGATE] *Lipid Profile CC PCP [facility] Work Phone: Start: 06-02-2016 End: 06-02-2016 Follow Up Appt Other Follow Up Appt Other [facility] Work Phone: Start: 06-02-2016 End: 06-02-2016 PFM PFM [facility] Work Phone: Start: 06-02-2016 End: 06-02-2016 Follow Up Appt Other Follow Up Appt Other [facility] Work Phone: Start: 06-02-2016 End: 06-02-2016 PFM PFM [facility] Work Phone: Start: 02-17-2016 End: 02-17-2016 Follow Up Appt 3 months Follow Up Appt 3 months [facility] Work Phone: Start: 02-17-2016 End: 02-17-2016 Follow Up Appt 6 months Follow Up Appt 6 months [facility] Work Phone: Start: 02-17-2016 End: 02-17-2016 MMM MMM [facility] Work Phone: Start: 02-17-2016 End: 02-17-2016 PFM PFM [facility] Work Phone: Start: 02-17-2016 End: 02-17-2016 Follow Up Appt 3 months Follow Up Appt 3 months [facility] Work Phone: Start: 02-17-2016 End: 02-17-2016 Follow Up Appt 6 months Follow Up Appt 6 months [facility] Work Phone: Start: 02-17-2016 End: 02-17-2016 MMM MMM [facility] Work Phone: Start: 02-17-2016 End: 02-17-2016 PFM PFM [facility] Work Phone: Start: 01-02-2016 End: 02-13-2016 *Hepatic Function Panel *Hepatic Function Panel [facility] Work Phone: Start: 01-02-2016 End: 01-02-2016 Cardiac Rehab Cardiac Rehab [address] [place], [address] [facility] Work Phone: Start: 01-02-2016 End: 01-02-2016 Cardiovascular stress test using treadmill Treadmill stress test (no imaging) [facility] Work Phone: Start: 01-02-2016 End: 01-02-2016 Ecg routine ecg w/least 12 lds w/i&r EKG (In office) [facility] Work Phone: Start: 01-02-2016 End: 01-02-2016 Follow Up Appt 6 weeks Follow Up Appt 6 weeks [facility] Work Phone: Start: 01-02-2016 End: 02-13-2016 Lipid 1996 panel *Lipid Profile CC PCP [facility] Work Phone: Start: 01-02-2016 End: 01-02-2016 MMM MMM [facility] Work Phone: Start: 01-02-2016 End: 02-13-2016 *Hepatic Function Panel *Hepatic Function Panel [facility] [employer] Work Phone: Start: 01-02-2016 End: 01-02-2016 Cardiac Rehab Card[facility] Re[facility] [address] [place], [address] [facility] Work Phone: Start: 01-02-2016 End: 01-02-2016 Cardiovascular stress test using treadmill Treadmill stress test (no imaging) [facility] Work Phone: Start: 01-02-2016 End: 01-02-2016 Electrocardiogram, complete EKG (In office) [facility] Work Phone: Start: 01-02-2016 End: 01-02-2016 Follow Up Appt 6 weeks Follow Up Appt 6 weeks [facility] Work Phone: Start: 01-02-2016 End: 02-13-2016 Lipid panel [AGGREGATE] *Lipid Profile CC PCP [facility] Work Phone: Start: 01-02-2016 End: 01-02-2016 MMM MMM [facility] Work Phone: Patient Education HEART%[email or web address]%[email or web address] [facility] Work Phone: dexAMETHasone so d phos (bulk) 100 % powder Ordered: 01-Jul-2016 MD Roney De La Garza Intent [employer] dexAMETHasone so d phos (bulk) 100 % powder Ordered: 12-May-2022 MD Roney De La Garza Intent [employer] Immunizations Immunization Date Immunization Notes Care Provider [facility] 06-26-2019 influenza virus vacc ine, unspecified formulation Roney De La Garza MD Work Phone: [email or web address]; [employer]. 06-26-2019 Shingrix 50 MCG/0.5M L Intramuscular Suspension Reconstituted Roney De La Garza MD Work Phone: [email or web address]; [email or web address] Payers Date Payer Category Payer Unknown [id number] Medicare [id number] Medicare [id number] Unknown Social History Date Type Detail Facility Start: 12-14-2017 End: 12-14-2017 Assertion Unknown if ever smoked [facility] Work Phone: Alcohol Use: Alcohol Use: ; Moderate alcohol use. [employer] Caffeine Use Caffeine Use [employer] Current Work/Study Status: Current Work/Study Status: ; Self-employed. [employer] Tobacco Use: Tobacco Use: ; U ses chewing tobacco. [employer] Male [employer] Work Phone: Self-employed [employer]; [employer] Work Phone: Occasional alcoh ol use [employer]; [employer]. Work Phone: Moderate alcohol use [employer]; [employer] Work Phone: Smokes < 1 pack of cigarettes per day [employer]; [employer] 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 Advance Directives Living Will - Effective on . Expiration date unspecified. Scanned Document is available upon request. Effective:05-Feb-2016 Living Will - Effective on . Expiration date unspecified. Scanned Document is available upon request. Effective:05-Feb-2016 Living Will - Effective on . Expiration date unspecified. Scanned Document is available upon request. Effective:05-Feb-2016 Assessments There may be information available, but it has not been provided by the sender. Review of System There may be information available, but it has not been provided by the sender. Family History Cancer Status:Active Comments:Negativ e Family History Of. Cerebrovascular Accident Status:Active Comment s:Negative Family History Of. Coronary Artery Disease Status:Active Comments :Father. Brother. Mother. Diabetes Mellitus Status:Active Comments:Broth er. Diabetes Mellitus Type I Status:Active Comment s:Father. Hypertension Status:Active Comments:Father. Osteoarthritis Status:Active Comments:Family Members In General. Cancer Status:Active Comments:Negativ e Family History Of. Cerebrovascular Accident Status:Active Comment s:Negative Family History Of. Coronary Artery Disease Status:Active Comments :Father. Brother. Mother. Diabetes Mellitus Status:Active Comments:Broth er. Diabetes Mellitus Type I Status:Active Comment s:Father. Hypertension Status:Active Comments:Father. Osteoarthritis Status:Active Comments:Family Members In General. Cancer Status:Active Comments:Negativ e Family History Of. Cerebrovascular Accident Status:Active Comment s:Negative Family History Of. Coronary Artery Disease Status:Active Comments :Father. Brother. Mother. Diabetes Mellitus Status:Active Comments:Broth er. Diabetes Mellitus Type I Status:Active Comment s:Father. Hypertension Status:Active Comments:Father. Osteoarthritis Status:Active Comments:Family Members In General. Summary Purpose Additional Source Comments (unrecognized sect ion and content) No Status Records FoundNo Status Records Found INFORMATION SOURCE (unrecogn ized section and content) DATE CREATED AUTHOR AUTHOR'S ORGANIZ ATION 08/06/2021 [facility] FOR RECORDS PERTAINING TO PATIENTS WHO ARE OR HAVE BEEN ENROLLED IN A CHEMICAL DEPENDENCY/SUBSTANCEABUSE PROGRAM, SOME INFORMATION MAY BE OMITTED. This clinical summary was aggregated from multiple sources. Caution should be exercised in using it in the provision of clinical care. This summary normalizes information from multiple sources, and as a consequence, information in this document may materially change the coding, format and clinical context of patient data. In addition, data may be omitted in some cases. CLINICAL DECISIONS SHOULD BE BASED ON THE PRIMARY CLINICAL RECORDS. [employer] provides no warranty or guarantee of the accuracy or completeness of information in this document.
== END | disposition home or self-care (01) ==
PROVIDERS: PCP Family Medicine; Referring Provider Urology; Visit Provider Urology
DX: Z12.5 Encounter for screening for malignant neoplasm of prostate (principal)
CPT/HCPCS: 36415; 84153; G0103

== ENCOUNTER → 2023-11-27 | Outpatient (CLI) | payer MEDICARE, BC, SELFPAY ==
[2020-08-22 10:47] VITALS: BMI 27.9
[2023-11-27 09:47] LABS: AST(SGOT) 17 U/L (15-37); Alanine Aminotransfer ALT/SGPT 27 U/L (16-61); Albumin, Serum 3.7 g/dL (3.2-5.0); Alkaline Phosphatase 63 U/L (45-117); Bilirubin, Direct 0.18 mg/dL (0.00-0.30); Cholesterol 176 mg/dL (200); Globulin 3.5 g/dL (2.2-4.2); High Density Lipoprotein 35 mg/dL; Protein, Total 7.2 g/dL (6.4-8.2); Triglycerides 111 mg/dL; Very Low Density Lipoprotein 22 mg/dL (5-40)
== END | disposition home or self-care (01) ==
PROVIDERS: PCP Family Medicine; Referring Provider Nurse Practitioner Family; Visit Provider Nurse Practitioner Family
DX: E78.00 Pure hypercholesterolemia, unspecified (principal)
CPT/HCPCS: 36415; 80061; 80076

== ENCOUNTER → 2024-06-09 | Outpatient (CLI) | payer MEDICARE, BC, SELFPAY ==
[2020-08-22 10:47] VITALS: BMI 27.9
[2024-06-09 09:44] LABS: AST(SGOT) 29 U/L (15-37); Alanine Aminotransfer ALT/SGPT 34 U/L (16-61); Albumin, Serum 4.1 g/dL (3.2-5.0); Alkaline Phosphatase 64 U/L (45-117); Bilirubin, Direct 0.28 mg/dL (0.00-0.30); Cholesterol 169 mg/dL (200); Globulin 2.9 g/dL (2.2-4.2); High Density Lipoprotein 53 mg/dL; Triglycerides 123 mg/dL; Very Low Density Lipoprotein 25 mg/dL (5-40)
== END | disposition home or self-care (01) ==
PROVIDERS: PCP Family Medicine; Referring Provider Nurse Practitioner Family; Visit Provider Nurse Practitioner Family
DX: E78.00 Pure hypercholesterolemia, unspecified (principal)
CPT/HCPCS: 36415; 80061; 80076

== ENCOUNTER → 2024-08-29 | Outpatient (CLI) | payer MEDICARE, BC, SELFPAY ==
[2020-08-22 10:47] VITALS: BMI 27.9
[2024-08-29 14:20] LABS: Absolute Lymphocyte Count 1.51 X10^3/uL (0.83-4.51); Absolute Neutrophil Count 3.4 X10^3/uL (2.0-7.7); Basophil# 0.05 X10^3/uL; Basophil% 0.9 % (0-1); Eosinophil# 0.23 X10^3/uL; Hematocrit 42.6 % (40-54); Hemoglobin 14.6 g/dL (13.0-16.5); Lymphocyte # 1.51 X10^3/ul (0.83-4.51); Lymphocyte % 26.2 % (19-41); Mean Corp Hgb Conc 34.3 g/dL (32-36); Mean Corpuscular Hgb 29.9 pg (27.0-32.0); Mean Corpuscular Volume 87.1 fL (80-94); Mean Platelet Vol. 10.5 fl (6.2-12.0); Monocyte# 0.58 X10^3/uL; Monocyte% 10.1 % (0-10); NRBC Flagged by Analyzer 0 % (0-5); Neutrophil # 3.38 X10^3/uL (2.7-7.7); Neutrophil % 58.6 % (47-70); Platelet Count 249 K/mm3 (150-450); RBC Distribution Width CV 12.9 % (11.6-14.6); RBC Distribution Width SD 40.4 fl (35.1-43.9); Red Blood Count 4.89 M/mm3 (4.6-6.2); White Blood Count 5.8 K/mm3 (4.4-11.0)
[2024-08-29 14:41] LABS: Anion Gap 5 (5-15); BUN 16 mg/dL (7-18); BUN/Creat Ratio 16.1 RATIO (10-20); Calcium,Total 9.3 mg/dL (8.5-10.1); Chloride 106 mmol/L (98-107); Creatinine, Serum 0.99 mg/dL (0.70-1.30); EST Glomerular Filtration Rate 79 mL/min (>60); Est Glom Filt Rate - Afr Amer 96 mL/min (>60); Glucose 122 mg/dL (74-106); Potassium 4.2 mmol/L (3.5-5.1); Sodium Level 138 mmol/L (136-145)
== END | disposition home or self-care (01) ==
LOC: LAB.FUTURE 13:48 → LAB 13:48
PROVIDERS: PCP Family Medicine; Referring Provider Internal Medicine Cardiovascular Disease; Visit Provider Internal Medicine Cardiovascular Disease
DX: Z01.810 Encounter for preprocedural cardiovascular examination (principal)
CPT/HCPCS: 36415; 80048; 85025